=== PATIENT | male | born 1980 | race Caucasian/White ===

== ENCOUNTER 2024-05-25 11:42 | Outpatient (AMB) | payer MEDICAID, SELFPAY ==
--- NOTE | 2024-05-25 11:46 | MHC.OFFVIS ---
Vital Signs 05/25/24 11:51 Height 5 ft 11 in Weight 315 lb 8 oz BMI 44.0 BP 183/93 H Blood Pressure Location Lt brachial Position Sitting Pulse 77 Pulse Source Pulse Oximeter Pulse Oximetry (%) 98 Oxygen Delivery Method Room Air Intake Visit Reasons: Chronic Pain Syndrome Intake Note: Pain today 03/08 Glue Specialty Supervisor Required: No Accompanied by: Self / Same As Patient Allergies No Known Allergies Allergy (Verified 05/25/24 11:50) Medication List - Last Reconciled 05/26/24 by JANNETH Robb acetaminophen 1,000 mg PO Q12H PRN furosemide 20 mg PO DAILY gabapentin 200 mg PO BID metformin 500 mg PO BID metoprolol tartrate 25 mg PO BID oxycodone 5 mg PO Q4-6H PRN warfarin 5 mg PO DAILY warfarin 1 mg PO DAILY HPI HPI Chronic Pain Syndrome: Details: Patient is a pleasant 44-year-old male with history PAF, alcohol abuse, OCD, and 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 Patient is followed [place]. Braxton [facility] [place] with upcoming repeat ultrasound of BLE next month. Patient reports personal history of 17 blood clots in his legs. Patient reports his father at the age 42 due to DVTs and PE. Patient takes oxycodone and gabapentin for chronic abdominal and bilateral leg pain. He reports current opioid regimen provides him inconsistent [id number] analgesia for allows him to be less symptomatic and more functional. Pain is most severe during evenings and is constant which he rates at 7/10 and 10/10 at evenings when its worst and 6/10 when it is least severe. Pain affects his daily activities and functioning, mobility, walking capacity, sleep, and social interactions. Patient is interested in alternative interventional treatments in addition to his current medical management. His goal is to control his pain so he is able to lose weight through increase daily physical activity and exercise. Patient is also interested in weight management referral. He completed physical therapy 2 years ago while hospitalized in [facility] and more recently in December after vascular surgery. Patient reports he is happy not to be in wheelchair as he was previously but notes his mobility is limited to work hours only due to significant pain in his BLE. Denies any fever or chills, chest pain, shortness of breath, dizziness, groin pain, back pain, weakness, bladder or bowel dysfunction or saddle anesthesia. Patient graduated from [employer] from recovery from alcohol. 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 Patient denies past or present use of illicit substances, including marijuana. He quit smoking in September 2023 and switched to vaping. Location: Bilateral legs and feet Duration: Chronic pain for 3 years Characteristics of symptom or complaint: Throbbing, numbness, tingling, spasming, stabbing, sharp, shooting, cramps Aggravating or associated factors: Walking, weight bearing, climbing stairs, cold weather Relieving factors: Oxycodone, gabapentin, rest, laying down,elevation Treatment: [place] [facility] [place], lymphedema compression therapy [facility] Medical History (Updated 05/26/24 @ 08:33 by JANNETH Robb) History of DVT of lower extremity History of alcohol abuse Post-thrombotic syndrome PAF (paroxysmal atrial fibrillation) OCD (obsessive compulsive disorder) Prediabetes Hypertension Mixed hyperlipidemia Chronic pain syndrome Surgical History (Updated 05/26/24 @ 08:33 by JANNETH Robb) History of thrombectomy History of vascular surgery (~12/2023) Social History Alcohol intake: former Patient Tobacco Use Status: Former Tobacco user Tobacco use type: Cigarette e-Cigarette/Vaping Use: Currently Using Review of Systems Const All systems reviewed & are unremarkable except as noted in HPI and below Physical Exam Vital Signs: Last Vital Signs Pulse 77 05/25/24 11:51 BP 183/93 H 05/25/24 11:51 Pulse Ox 98 05/25/24 11:51 Oxygen Delivery Method Room Air 05/25/24 11:51 BMI result Body Mass Index 44.0 General: Appears afebrile. Alert and oriented. Mood and affect appropriate. Follows and participates in conversation appropriately. Respiratory effort is unlabored. No cough. Able to transition from sit to stand unassisted. Ambulates with bilaterally normal heel strike and toe off. Const General: cooperative, healthy appearing, no acute distress, alert and awake Nutritional Appearance: obese morbidly obese Orientation/consciousness: patient oriented x3 Skin General skin exam: no rashes or lesions noted Wounds: no wounds Neuro General: patient oriented x3 Extrem Other: There is a decreased sensation over the soles of the feet and toes. Reports numbness, burning, tingling in both legs and feet, worse at night time. No breaks in the skin. BLE nonpitting edema. No soft tissue swelling or warmth. +2 pedal pulses bilaterally. Poor foot care. General: Yes capillary refill normal and Yes no calf tenderness Assessment & Plan Assessment & Plan (1) Post-thrombotic syndrome: Code(s): I87.009 - Postthrombotic syndrome without complications of unspecified extremity Category: Medical (2) Peripheral neuropathy: Code(s): G62.9 - Polyneuropathy, unspecified Category: Medical (3) History of alcohol abuse: Code(s): F10.11 - Alcohol abuse, in remission Category: Medical (4) Post-thrombotic syndrome: Code(s): I87.009 - Postthrombotic syndrome without complications of unspecified extremity Category: Medical (5) Peripheral neuropathy: Code(s): G62.9 - Polyneuropathy, unspecified Category: Medical (6) Chronic pain syndrome: Code(s): G89.4 - Chronic pain syndrome Category: Medical (7) Morbid obesity with BMI of 40.0-44.9, adult: Code(s): E66.01 - Morbid (severe) obesity due to excess calories; Z68.41 - Body mass index [BMI] 40.0-44.9, adult Category: Medical Plan EMG and NVC studies to evaluate chronic BLE pain, consistent with peripheral neuropathy, history of alcohol abuse, and post thrombotic syndrome due to history of multiple BLE DVTs with prior major vascular surgeries. Discussed risks and benefits of different treatment options including topical 8% capsaicin application, Sprint PNS trial and spinal cord stimulation. Informational pamphlets provided to patient. Medical weight management referral for morbid obesity. Patient encouraged daily physical activity as tolerated, adequate hydration, well-balanced diet, avoid carbohydrates, and sodas. Patient is currently on medical pain management through his PCP including oxycodone 5 mg Q4-6H prn gabapentin. He reports short acting opioids are providing him mild and temporary analgesia for 2-3 hours after taking medication but allows him to be less symptomatic and more functional. Patient may benefit from adding a long-acting opioid such as Belbuca or Butrans patch to manage moderate-severe and persistent pain that requires an extended treatment period and continue oxycodone for breakthrough pain. All questions and concerns have been answered and patient agreed with the treatment plan. Follow-up for EMG/NVC results and sooner as needed. Orders: Orders NE electromyogram (EMG) 05/25/24 F10.11 - Alcohol abuse, in remission, G62.9 - Polyneuropathy, unspecified, I87.009 - Postthrombotic syndrome without complications of unspecified extremity NE nerve conduction velocity 05/25/24 F10.11 - Alcohol abuse, in remission, G62.9 - Polyneuropathy, unspecified, I87.009 - Postthrombotic syndrome without complications of unspecified extremity Referrals Medical Weight Management Referral E66.01 - Morbid (severe) obesity due to excess calories, G89.4 - Chronic pain syndrome, Z68.41 - Body mass index [BMI] 40.0-44.9, adult Coding Level of Care Code New Pt Level 4 (63315) Complex EM visit Add On G2211 Diagnoses Post-thrombotic syndrome I87.009 Peripheral neuropathy G62.9 History of alcohol abuse F10.11 Chronic pain syndrome G89.4 Morbid obesity with BMI of 40.0-44.9, adult E66.01; Z68.41
[2024-05-25 11:51] VITALS: BP 183/93; PULSE 77; O2SAT 98; BMI 44.0
== END 2024-05-25 12:37 | disposition home or self-care (01) ==
PROVIDERS: PCP Nurse Practitioner; Visit Provider Nurse Practitioner Family
DX: I87.009 Postthrombotic syndrome without complications of unspecified extremity (principal); G62.9 Polyneuropathy, unspecified; F10.11 Alcohol abuse, in remission; G89.4 Chronic pain syndrome; E66.01 Morbid (severe) obesity due to excess calories; Z68.41 Body mass index [BMI] 40.0-44.9, adult
CPT/HCPCS: 99204

== ENCOUNTER → 2024-05-25 11:42 | Outpatient (BNVA) | payer MEDICAID, SELFPAY | PROVIDERS: PCP Nurse Practitioner; Visit Provider Nurse Practitioner Family | DX: G89.4 Chronic pain syndrome (principal); I87.009 Postthrombotic syndrome without complications of unspecified extremity; G62.9 Polyneuropathy, unspecified; E66.01 Morbid (severe) obesity due to excess calories; Z68.41 Body mass index [BMI] 40.0-44.9, adult | CPT/HCPCS: 99212 ==

== ENCOUNTER 2024-06-16 09:29 | Outpatient (REF) | payer MEDICAID, SELFPAY ==
--- NOTE | 2024-06-16 09:33 | EMG_ITS ---
Chief complaint: Bilateral leg numbness and weakness, right worse than left Denies back pain. History of alcohol drinking in the past, not anymore. History of DVTs and post thrombolytic syndrome. On Coumadin with latest INR 2.9. Recently removed IVC filter and stents placed. Significant leg edema. Reason for referral: Evaluate for neuropathy Referred by: Ting Dan NP Procedure done: Bilateral lower extremity NCS/EMG Precautions and/or limitations: Limited needle EMG, done on right side only, due to risk of bleeding/bruising while on Coumadin. History of DVTs. Significant leg edema, necessitating increased stimulation intensity to get responses. The limb temperature was monitored continuously and remained between 32-36 degrees C during the performance of the NCS. Nerve Conduction Studies Anti Sensory Summary Table ?Stim Site NR Onset (ms) Norm Onset (ms) Peak (ms) Norm Peak (ms) O-P Amp (?V) Norm O-P Amp Site1 Site2 Delta-0 (ms) Dist (cm) Feng (m/s) Norm Feng (m/s) Left Sural Anti Sensory (Lat Mall) Calf ? 2.3 3.1 <4.0 10.3 >5.0 Calf Lat Mall 2.3 14.0 61 Right Sural Anti Sensory (Lat Mall) Calf ? 2.6 3.3 <4.0 8.3 >5.0 Calf Lat Mall 2.6 14.0 54 Motor Summary Table ?Stim Site NR Onset (ms) Norm Onset (ms) O-P Amp (mV) Norm O-P Amp iAmp (mV) Amp (1st) (%) Site1 Site2 Delta-0 (ms) Dist (cm) Feng (m/s) Norm Feng (m/s) Right Peroneal Motor (Ext Dig Brev) Ankle ? 4.6 <4.0 1.9 >2.5 2.1 100.0 Ankle Ext Dig Brev 4.6 0.0 B Fib ? 10.8 2.5 2.5 131.6 B Fib Ankle 6.2 33.5 54 >40 Poplt ? 11.4 2.7 2.6 142.1 Poplt B Fib 0.6 6.0 100 >40 Left Tibial Motor (Abd Mehta Brev) Ankle ? 3.3 <5 6.8 >2.5 9.6 100.0 Ankle Abd Mehta Brev 3.3 0.0 Knee ? 8.8 3.6 3.9 52.9 Knee Ankle 5.5 40.0 73 >40 Right Tibial Motor (Abd Mehta Brev) Ankle ? 3.1 <5 8.0 >2.5 10.0 100.0 Ankle Abd Mehta Brev 3.1 0.0 Knee ? 12.0 3.6 3.6 45.0 Knee Ankle 8.9 41.0 46 >40 EMG ?Side Muscle Nerve Root Ins Act Fibs Psw Amp Dur Poly Recrt Int Pat Comment Right AbdHallucis MedPlantar S1-2 Incr 1+ 1+ Nml Nml 0 Nml Complete Right AntTibialis Dp Br Peron L4-5 Incr 1+ 1+ Nml Nml 0 Nml Complete Right MedGastroc Tibial S1-2 Incr 1+ 1+ Nml Nml 0 Nml Complete Right VastusMed Femoral L2-4 Nml Nml Nml Nml Nml 0 Nml Complete Right Peroneus Long Sup Br Peron L5-S1 Nml Nml Nml Nml Nml 0 Nml Complete FINDINGS: Right peroneal nerve showed increased distal latencies, small amplitudes and normal conduction velocity. All other nerves tested were within normal. Concentric needle EMG was performed in selected muscles of the right lower extremity. Study revealed signs of electric abnormalities as shown in the table above. Right AH, tibialis anterior and medial gastrocnemius showed increased insertional activity, PSWs and fibrillations. Limited needle EMG as mentioned above. IMPRESSION: 1. This is an abnormal although limited study. 2. There is electrodiagnostic findings suggestive of right L5-S1 radiculopathy. 3. There is no electrodiagnostic evidence for tibial neuropathy or peripheral neuropathy. CLINICAL COMMENT: Interpret study results with caution due to limitations mentioned above. Thank you for your kind referral. Blank Martínez MD, JUDY Board Certified, [place] [employer] and Rehabilitation (ABPMR) Board Certified, [place] Board of Electrodiagnostic Medicine (ABEM) CODIN [id number] [facility]
== END 2024-06-16 09:30 | disposition home or self-care (01) ==
LOC: HO.NEURO 09:29
PROVIDERS: Visit Provider Nurse Practitioner Family
DX: G62.9 Polyneuropathy, unspecified (principal); F10.11 Alcohol abuse, in remission; I87.009 Postthrombotic syndrome without complications of unspecified extremity; R20.0 Anesthesia of skin
CPT/HCPCS: 95886; 95909

== ENCOUNTER → 2024-06-16 09:33 | Outpatient (BNV) | payer MEDICAID, SELFPAY | PROVIDERS: Visit Provider Physical Medicine & Rehabilitation | DX: M54.16 Radiculopathy, lumbar region (principal) | CPT/HCPCS: 95886; 95909 ==

== ENCOUNTER 2024-10-27 12:57 | Outpatient (AMB) | payer OTHER, SELFPAY ==
[2024-10-27 13:30] LABS: Prothrombin Time Whole Bld POC 35.5 sec (11.1-13.5)
--- NOTE | 2024-10-27 13:45 | MHC.OFFVISCO ---
Intake Intake Visit Reasons: Anticoagulation Contract Post Office Clerk Required: No Allergies No Known Allergies Allergy (Verified 05/25/24 11:50) Medication List - Last Reconciled 10/27/24 by Sarah Larkin RN acetaminophen 1,000 mg PO Q12H PRN furosemide 20 mg PO DAILY gabapentin 200 mg PO BID metformin 500 mg PO BID metoprolol tartrate 25 mg PO BID oxycodone 5 mg PO Q6H PRN warfarin 5 mg See Protocol PO DAILY Nursing Note Pt to [facility] for initial visit. Pt states he has has close to 20 clots in the past 15 years. In December of 2023 he had 3 major clots in bilat iliac veins and Right femoral vein. He had [address] at that time. He has been on Xarelto and Eliquis previously but since the last episode of clotting, he transitioned to Warfarin. Pt states he has been on warfarin for almost a year. History taken. Anti-coag education done with good understanding by pt. INR today: 3.0 in therapeutic range of 2.5-3.5. Pt states his last INR 3-4 weeks ago was 1.7 Medications and supplements reviewed Denies any signs and symptoms of bleeding or bruising or clotting. Bleeding, bruising, clotting discussed Nutritional education/guidance given Dose: will keep pt on the dose he has been on which is 7.5mg daily F/U INR: 1 week Patient verbalizes understanding of instructions with read back given Anti-Coag Initial Assessment Social Hx Patient Tobacco Use Status: Former Tobacco user (quit 1 year ago, uses vape 5% nicotine) Tobacco use type: Cigarette Smoking packs per day: 1 alcohol intake: former Alcohol intake frequency: does not drink Housing: Apartment current occupational exposures/hazards: No Fall risk assessment: No Falls in past year Cardiovascular Hx: HTN, Arrhythmias (afib) and Varicose Veins Lung Disease HX: DVT/PE Endocrine Hx: Diabetes (borderline on oral agent) Cancer HX: No Psych. Illness/Depression: No Surgeries: IVC Filter (failed and removed) 3 Stents bilat Iliac veins and Right Femoral vein Other: CVI Chronic Venous Insufficiency Anti-Coag. Education Record Teaching Recipient: Patient What is the easiest way to learn: Reading, Listening, Picture, Demonstration and Education Packet Contract Post Office Clerk Required: No Readiness To Learn: Excellent Teaching Methods: Discussion, Handout, Protocol and Teach Back Response to Teaching: Verbalize Understanding Re-Education needs: Reinforce Content Education Intervention/Brief Description of Teaching 1. Able to state reason for taking Warfarin: Yes 2. Able to state Pain Management techniques: Yes 3. Able to state action of Warfarin.: Yes Able to state current dose, pill color, how and when Warfarin to be taken: Yes Able to identify signs of bleeding &/or clotting: Yes 4. Able to identify need to keep diet consistent in regard to vitamin K intake: Yes Able to state restriction on alcohol: Yes 5. Able to state need for compliance with PT/INR testing: Yes Describes rationale for carrying ID and wearing Medic Alert bracelet: Yes Patient instructed to monitor for excess bruising or signs/symptoms of clotting or bleeding: Yes 6. Able to state that there are drugs that interact with Warfin: Yes 7. Able to state the need to seek medical attention when illness/injury occur.: Yes Describes the need to avoid activities with high risk of injury: Yes 8. Able to state duration of treatment: Yes 9. Demonstrates understanding of notifying all providers of pending dental surgical, or other invasive procedures: Yes 10. Able to state Home Care instructions Questionnaires HAS-BLED Does the patient had uncontrolled Hypertension?: No Does the patient have renal disease?: No Does the patient have liver disease?: No Does the patient have a history of stroke?: No Has the patient had major bleeding or predisposition to bleeding?: No Does the patient have labile INRs?: Yes Is the patient over 65 years of age?: No Is the patient on medications that gives them a predisposition to bleeding?: Yes Does the patient use alcohol?: No HAS-BLED Score: 2 CHADSVASC Age: <65 Gender: Male Does the patient have a history of CHF?: No Does the patient have a history of Hypertension?: Yes Does the patient have a history of Stroke/TIA/Thromboembolism?: No Does the patient have a history of Vascular Disease (prior HI, PAD or aortic plaque)?: No Does the patient have a history of Diabetes?: Yes CHADS VACS Score: 2 Pee Prediction Score Rsk VTE Active Cancer: No Previous VTE, excluding superficial vein thrombosis: Yes Reduced mobility: No Already known Thrombophilic Condition: Yes With-in last month Trauma and/or Surgery: No Elderly 70 year or older: No Heart and/or Respiratory Failure: No Acute Myocardial infarction and/or Ischemic Stroke: No Acute Infection and/or Rheumatologic Disorder: No Obesity (BMI 30 or greater): Yes Ongoing Hormonal Treatment: No Score: 7 Pee Score less than 4; Low Risk of VTE Pee Score 4 or greater; High Risk of VTE Coding Level of Care Code New Patient Level 2 Diagnoses Current use of anticoagulant therapy Z79.01 Assessment & Plan Assessment & Plan (1) Current use of anticoagulant therapy: Code(s): 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
--- OUTSIDE RECORDS SUMMARY | 2024-10-27 15:01 | XMS_ITS ---
Author Organization [facility] Address [address] [place] [phone] Care Team Providers Care Horse Racing Manager Name Role Phone Karin Randall Primary Care Provider REASON FOR VISIT refills/Coumadin clinic referral Medications Medication SIG (Take, Route, Frequency, Duration) Notes Start Date End Date Status oxyCODONE 5 mg 1 tab(s) orally every 6 hours for 30 days As needed Partial Fill upon Patient Request 10/17/2024 Active Jantoven 7.5 mg 1 tab(s) orally once a day 10/03/2024 Active Problems Problem Type SNOMED Code ICD Code Onset Dates Problem Status W/U Status Risk Notes Problem History of pulmonary embolus (471713095) Personal history of pulmonary embolism (Z86.711) Active confirmed Encounters Encounter Location Date Provider Diagnosis [address] [phone] 10/17/2024 Karin Randall Chronic pain syndrome G89.4 ; Personal history of pulmonary embolism Z86.711 ; Personal history of other venous thrombosis and embolism Z86.718 ; Paroxysmal atrial fibrillation I48.0 ; detention (current) use of anticoagulants Z79.01 and 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 I87.093 Assessments Encounter Date Diagnosis (ICD Code) Assessment Notes Treat ment Notes Treatment Clinical Notes 10/17/2024 Chronic pain syndrom e (ICD-10 - G89.4) 10/17/2024 Personal history of pulmonary embolism (ICD-10 - Z86.711) Advised to have blood draw in our clinic or to [facility] while waiting for [facility] acceptance. 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 Offered lab draw today while we are at [facility] he declined Progress Notes * Epifanio WALSH EDOB: [birth year] (44 yo M)Acc No.[id number]:10/17/2024 Patient:?Epifanio WALSH :1980???Age:44 Y???Sex:Male Address:[address] [place] [phone] * Refills? Refill oxyCODONE tablet, 5 mg, orally, 120 Tablet, 1 tab(s), every 6 hours, 30 days, Refills=0 Continue Jantoven tablet, 7.5 mg, orally, 1 tab(s), once a day Subjective: * Chief Complaints: * ???refills/Coumadin clinic r eferral * Medical History:? * Surgical History:? * Hospitalization/Major Diagno stic Procedure:? * Medications:? Objective: * Vitals:? * Physical Examination:? 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 Plan: * Treatment: 2.?Personal history of pulmo nary embolism? Notes: Advised to have blood draw in our clinic or to [facility] while waiting for [facility] acceptance. Offered lab draw today while we are at [facility] he declined? Referral To: ?Reason:refer to Coumadin clinic for INR monitoring and Coumadin dosing; Goal INR: 2.5-3.5 Present insurance no longer cover for home INR draws 3.?Personal history of other venous thrombosis and embolism? Referral To: ?Reason:refer to Coumadin clinic for INR monitoring and Coumadin dosing; Goal INR: 2.5-3.5 Present insurance no longer cover for home INR draws 4.?Paroxysmal atrial fibrill ation? Referral To: ?Reason:refer to Coumadin clinic for INR monitoring and Coumadin dosing; Goal INR: 2.5-3.5 Present insurance no longer cover for home INR draws 5.?detention (current) use o f anticoagulants? Referral To: ?Reason:refer to Coumadin clinic for INR monitoring and Coumadin dosing; Goal INR: 2.5-3.5 Present insurance no longer cover for home INR draws 6.?Postthrombotic syndrome w ith other complications of bilateral lower extremity? Continue Jantoven tablet, 7.5 mg, 1 tab(s), orally, once a day.? Referral To: ?Reason:refer to Coumadin clinic for INR monitoring and Coumadin dosing; Goal INR: 2.5-3.5 Present insurance no longer cover for home INR draws * Procedure Codes:? * true * Date:? Generated for [employer] wayne/Rosalia/eTransmitting on:?10/27/2024 03:01 PM EST
--- OUTSIDE RECORDS SUMMARY | 2024-10-27 15:01 | XMS_ITS ---
Author Organization [facility] Address [address] [place] [phone] Care Team Providers Care Package Delivery Room Service Runner Name Role Phone Karin Randall Primary Care Provider [phone] Anurag Martinez Unavailable [phone] REASON FOR VISIT oxy Medications Medication SIG (Take, Route, Frequency, Duration) Notes Start Date End Date Status oxyCODONE 5 mg 1 tab(s) orally every 8 hours for 14 days As needed Partial Fill upon Patient Request 10/25/2024 Active Encounters Encounter Location Date Provider Diagnosis [address] [phone] 10/25/2024 Anurag Martinez Chronic pain syndrome G89.4 Assessments Encounter Date Diagnosis (ICD Code) Assessment Notes Treatment Notes Treatment Clinical Notes 10/25/2024 Chronic pain syndrome (ICD-10 - G89.4) Plan Of Treatment Medication Medication Name Sig Start Date Stop Date Notes oxyCODONE 5 mg 1 tab(s) orally ever y 8 hours for 14 days 10/25/2024 Partial Fill upon Patient Request Progress Notes * Epifanio WALSH EDOB: [birth year] (44 yo M)Acc No.[id number]:10/25/2024 Patient:?Epifanio WALSH :1980???Age:44 Y???Sex:Male Address:[address] [place] [id number] * Refills? Refill oxyCODONE tablet, 5 mg, orally, 42 Tablet, 1 tab(s), every 8 hours, 14 days, Refills=0 * true * Date:? Generated for Printi ng/Faxing/Caitlinitting on:?10/27/2024 03:01 PM EST
--- OUTSIDE RECORDS SUMMARY | 2024-10-27 15:01 | XMS_ITS ---
Author Organization [facility] Address [address] [place] [phone] Care Team Providers Care Supervisor Electric Name Role Phone Karin Randall Primary Care Provider Reason For Referral Reason [facility], Anticoagulation Service, [address] [place] [id number] P: [phone] F: [phone] On Coumadin for history of PE, DVT, Paroxysmal Afib and Unstable chest pain. 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) Referral Organization [facility] Referring Provider First Name Karin Referring Provider Last Name Tonia Referring Provider Speciality Nurse Prac titioner General Notes Felicita Ramírez 05/2025 11:16:59 AM > Called anticoagulation clinic awaiting a call back for location and fax number for referralDarrell Paris 10/10/2024 08:42:07 AM > [facility] does not accept outside patients, [place] [facility] Priority Routine REASON FOR VISIT change in insurance Encounters Encounter Location Date Provider Diagnosis [address] [id number] 10/06/2024 Karin Randall Paroxysmal atrial fibrillation I48.0 ; Personal history of other venous thrombosis and embolism Z86.718 and 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 I87.093 Assessments Encounter Date Diagnosis (ICD Code) Assessment Notes Treat ment Notes Treatment Clinical Notes 10/06/2024 Paroxysmal atrial fibrillation (ICD-10 - I48.0) 10/06/2024 Personal history of other venous thrombosis and embolism (ICD-10 - Z86.718) BLE DVT [address] 10/06/2024 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 Goal INR is 2.5 - 3.5 Progress Notes * Epifanio WALSH EDOB: [birth year] (44 yo M)Acc No.[id number]:10/06/2024 Patient:?Epifanio WALSH :1980???Age:44 Y???Sex:Male Address:[address] [place] [phone] Subjective: * Chief Complaints: * ???Change in insurance * Medical History:? * Surgical History:? * Hospitalization/Major Diagno stic Procedure:? * Medications:? Objective: * Vitals:? * Physical Examination:? 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 Plan: * Treatment: 2.?Personal history of other venous thrombosis and embolism? Referral To: ?Reason: [facility], Anticoagulation Service, [address] [place] [id number] P: [phone] F: [phone] On Coumadin for history of PE, DVT, Paroxysmal Afib and Unstable chest pain. Goal INR is 2.5 - 3.5 3.?Postthrombotic syndrome w ith other complications of bilateral lower extremity? Referral To: ?Reason: [facility], Anticoagulation Service, [address] [place], [place] [id number] P: [phone] F: [phone] On Coumadin for history of PE, DVT, Paroxysmal Afib and Unstable chest pain. Goal INR is 2.5 - 3.5 * Procedure Codes:? * true * Date:? Generated for Kodak wayne/Rosalia/eTransmitting on:?10/27/2024 03:00 PM EST Consultation Request Notes Referral Date Referring Provider Referred Provider Not es 10/06/2024 Karin Randall , [facility], Anticoagulation Service, [address] [place] [id number] P: [phone] F: [phone] On Coumadin for history of PE, DVT, Paroxysmal Afib and Unstable chest pain. Goal INR is 2.5 - 3.5
== END 2024-10-27 14:38 | disposition home or self-care (01) ==
LOC: HO.ACS 12:57
PROVIDERS: PCP Nurse Practitioner; Visit Provider Internal Medicine
DX: Z79.01 Long term (current) use of anticoagulants (principal)

== ENCOUNTER → 2024-10-27 12:57 | Outpatient (BNVA) | payer OTHER, SELFPAY | PROVIDERS: PCP Nurse Practitioner; Visit Provider Internal Medicine | DX: I48.0 Paroxysmal atrial fibrillation (principal); I87.093 Postthrombotic syndrome with other complications of bilateral lower extremity; Z86.718 Personal history of other venous thrombosis and embolism; Z79.01 Long term (current) use of anticoagulants; Z51.81 Encounter for therapeutic drug level monitoring | CPT/HCPCS: 85610; 99202 ==

== ENCOUNTER 2024-11-03 15:01 | Outpatient (AMB) | payer OTHER, SELFPAY ==
[2024-11-03 15:09] LABS: Prothrombin Time Whole Bld POC 17.2 sec (11.1-13.5); ~PT, ~INR - Anti Coag Clinic 1.4 (0.9-1.1)
--- NOTE | 2024-11-03 15:26 | MHC.OFFVISCO ---
Intake Intake Visit Reasons: Anticoagulation Allergies No Known Allergies Allergy (Verified 11/03/24 15:02) Medication List - Last Reconciled 11/03/24 by Sarah Merino, RN acetaminophen 1,000 mg PO Q12H PRN furosemide 20 mg PO DAILY gabapentin 200 mg PO BID metformin 500 mg PO BID metoprolol tartrate 25 mg PO BID oxycodone 5 mg PO Q6H PRN rosuvastatin 5 mg PO DAILY warfarin 5 mg See Protocol PO DAILY Nursing Note Arrival: Patient arrives to [facility] amb feeling well. Status: Denies changes in health, diet, medications or supplements. Denies symptoms of bleeding, bruising or clotting. INR: 1.4 critical low, denies any missed dose, denies any changes in diet Therapeutic Range: 2.5-3.5 Dose: plan to increase dose to 10mg today and tomorrow, resume 7.5mg daily on Wednesday Call to PCP to report critical INR, dosing plan, no missed doses or dietary concerns and question if Lovenox is indicated- Spoke with Felicita LY await call back Nutritional Guidance: Review food list weekly, especially during the holidays, seasonal changes and celebrations. Continue to eat a consistent and balanced diet to keep INR in therapeutic range. during review of greens found that pt who usually drinks 12 diet cokes a day has stopped that and changed to Green tea (will decrease INR) sts he has about a half gallon a day Return call back from PCP Pedro Randall CRANE OPERATOR, warfarin 10mg x 2 days and lovenox will be ordered, pt concerns over delivery, PCP to call back Follow-up Appointment: Monday 11/06 sts he will come in on his lunch TC from PCP, lovenox has been ordered x 5 doses, 1 tonight, am and pm tomorrow and Wednesday. PCP sts it will be delivered today- pt aware of how to give injections, I hate it but did it for 5 months pt expresses much concern over cost of lovenox and co pays. Reviewed with pt importance of lovenox to protect from clotting and reviewed S/S of clotting, stroke and need for ED if any symptoms. Pt sts not sure if he is going to use it, has already called from office to pharmacy to have them call him with cost and co pay. reviewed again importance of protecting from clotting now with Lovenox and importance of taking warfarin at same time of day, every day as pt indicates I am all over the place with it Patient verbalizes understanding of instructions given regarding dosing, diet and next follow-up appointment with read back. Anti-Coag Initial Assessment Social Hx Patient Tobacco Use Status: Former Tobacco user (quit 1 year ago, uses vape 5% nicotine) Tobacco use type: Cigarette Smoking packs per day: 1 alcohol intake: former Alcohol intake frequency: does not drink Cardiovascular Hx: HTN, Arrhythmias (afib) and Varicose Veins Lung Disease HX: DVT/PE Endocrine Hx: Diabetes (borderline on oral agent) Cancer HX: No Psych. Illness/Depression: No Coding Level of Care Code Est Patient Level 2 Diagnoses Current use of anticoagulant therapy Z79.01 Time Spent (min) 30 Assessment & Plan Assessment & Plan (1) Current use of anticoagulant therapy: Code(s): Z79.01 - [facility] (current) use of anticoagulants Category: Medical
--- OUTSIDE RECORDS SUMMARY | 2024-11-03 16:42 | XMS_ITS ---
Author Organization [facility] Address [address] [place] [phone] Care Team Providers Care Business Services Director Name Role Phone Karin Randall Primary Care Provider [phone] REASON FOR VISIT INR issue Encounters Encounter Location Date Provider Diagnosis [address] [phone] 11/03/2024 Karin Randall Plan Of Treatment No Information Progress Notes * Epifanio WALSH EDOB: [birth year] (44 yo M)Acc No.[id number]:11/03/2024 Patient:?Epifanio WALSH :1980???Age:44 Y???Sex:Male Address:[address] [place] [phone] * true * Date:? Generated for Daroni rosana/Rosalia/eTransmitting on:?11/03/2024 04:42 PM EST
--- OUTSIDE RECORDS SUMMARY | 2024-11-03 16:43 | XMS_ITS ---
Author Organization [facility] Address [address] [place] [phone] Care Team Providers Care Filter Tank Tender Helper Head Name Role Phone Karin Randall Primary Care Provider [phone] Anurag Martinez Unavailable [phone] REASON FOR VISIT oxy Medications Medication SIG (Take, Route, Frequency, Duration) Notes Start Date End Date Status oxyCODONE 5 mg 1 tab(s) orally every 8 hours for 14 days As needed Partial Fill upon Patient Request 10/25/2024 Active Encounters Encounter Location Date Provider Diagnosis [address] [id number] 10/25/2024 Anurag Martinez Chronic pain syndrome G89.4 [...] Epifanio WALSH EDOB: [birth year] (44 yo M)Acc No.[id number]:10/25/2024 Patient:?Epifanio WALSH :1980???Age:44 Y???Sex:Male Address:[address] [place] [phone] * Refills? Refill oxyCODONE tablet, 5 mg, orally, 42 Tablet, 1 tab(s), every 8 hours, 14 days, Refills=0 * true * Date:? Generated for Printi ng/Faxing/Caitlinitting on:?11/03/2024 04:43 PM EST
--- OUTSIDE RECORDS SUMMARY | 2024-11-03 16:43 | XMS_ITS ---
Author Organization [facility] Address [address] [place] [phone] Care Team Providers Care Paver Layer Name Role Phone Karin Randall Primary Care Provider REASON FOR VISIT COumadin Medications Medication SIG (Take, Route, Fr equency, Duration) Notes Start Date End Date Status Enoxaparin Sodium 150 mg/mL as directed subcutaneously every 12 hours for 3 days 11/03/2024 Active Encounters Encounter Location Date Provider Diagnosis [address] [id number] 11/03/2024 Karin Randall Plan Of Treatment Medication Medication Name Sig Start Date Stop Date Notes Enoxaparin Sodium 150 mg/mL as directed subcutaneously every 12 hours for 3 days 11/03/2024 Progress Notes * Epifanio WALSH EDOB: [birth year] (44 yo M)Acc No.[id number]:11/03/2024 Patient:?Epifanio WALSH :1980???Age:44 Y???Sex:Male Address:[address] [place] [phone] * Refills? Start Enoxaparin Sodium solution, 150 mg/mL, subcutaneously, 5, as directed, every 12 hours, 3 days, Refills=0 * true * Date:? Generated for Kodak wayne/Rosalia/eTransmitting on:?11/03/2024 04:42 PM EST
== END 2024-11-03 16:04 | disposition home or self-care (01) ==
LOC: HO.ACS 15:01
PROVIDERS: PCP Nurse Practitioner; Visit Provider Internal Medicine
DX: Z79.01 Long term (current) use of anticoagulants (principal)

== ENCOUNTER → 2024-11-03 15:01 | Outpatient (BNVA) | payer OTHER, SELFPAY | PROVIDERS: PCP Nurse Practitioner; Visit Provider Internal Medicine | DX: I48.0 Paroxysmal atrial fibrillation (principal); I87.093 Postthrombotic syndrome with other complications of bilateral lower extremity; Z86.718 Personal history of other venous thrombosis and embolism; Z79.01 Long term (current) use of anticoagulants; Z51.81 Encounter for therapeutic drug level monitoring | CPT/HCPCS: 85610; 99212 ==

== ENCOUNTER 2024-11-06 11:16 | Outpatient (AMB) | payer OTHER, SELFPAY ==
[2024-11-06 11:25] LABS: Prothrombin Time Whole Bld POC 48.2 sec (11.1-13.5)
--- NOTE | 2024-11-06 11:39 | MHC.OFFVISCO ---
Intake Intake Visit Reasons: Anticoagulation Allergies No Known Allergies Allergy (Verified 11/06/24 11:21) Medication List - Last Reconciled 11/06/24 by Sarah Larkin RN acetaminophen 1,000 mg PO Q12H PRN furosemide 20 mg PO DAILY gabapentin 200 mg PO BID metformin 500 mg PO BID metoprolol tartrate 25 mg PO BID oxycodone 5 mg PO Q6H PRN rosuvastatin 5 mg PO DAILY warfarin 5 mg See Protocol PO DAILY Nursing Note INR: 4.0?out of therapeutic range of 2.5-3.5 Medications and supplements reviewed Patient status: feels well Medications or supplements: no changes Pt took only 2 doses of lovenox on Wednesday. States he hates taking it and because it makes him nauseated. Diet: usual diet for pt Denies any signs and symptoms of bleeding or clotting or unusual bruising Bleeding, bruising, clotting discussed Nutritional guidance given: to have a serving of greens today Dose: back to usual dose of 7.5mg daily F/U INR Date : 11/17/24?? Patient verbalizing understanding of instructions given. Anti-Coag Initial Assessment Social Hx Patient Tobacco Use Status: Former Tobacco user (quit 1 year ago, uses vape 5% nicotine) Tobacco use type: Cigarette Smoking packs per day: 1 alcohol intake: former Alcohol intake frequency: does not drink Cardiovascular Hx: HTN, Arrhythmias (afib) and Varicose Veins Lung Disease HX: DVT/PE Endocrine Hx: Diabetes (borderline on oral agent) Cancer HX: No Psych. Illness/Depression: No Coding Level of Care Code Est Patient Level 1 Diagnoses Current use of anticoagulant therapy Z79.01 Assessment & Plan Assessment & Plan (1) Current use of anticoagulant therapy: Code(s): Z79.01 - [facility] (current) use of anticoagulants Category: Medical
--- OUTSIDE RECORDS SUMMARY | 2024-11-06 12:54 | XMS_ITS ---
Author Organization [facility] Address [address] [place] [phone] Care Team Providers Care Assembly Mechanic Name Role Phone Karin Randall Primary Care Provider REASON FOR VISIT COumadin Medications Medication SIG (Take, Route, Fr equency, Duration) Notes Start Date End Date Status Enoxaparin Sodium 150 mg/mL as directed subcutaneously every 12 hours for 3 days 11/03/2024 Active Encounters Encounter Location Date Provider Diagnosis [address] [id number] 11/03/2024 Karin Randall Plan Of Treatment Medication Medication Name Sig Start Date Stop Date Notes Enoxaparin Sodium 150 mg/mL as directed subcutaneously every 12 hours for 3 days 11/03/2024 Progress Notes * Epifanio WALSH EDOB: [birth year] (44 yo M)Acc No.[id number]:11/03/2024 Patient:?Epifanio WALSH :1980???Age:44 Y???Sex:Male Address:[address] [place] [phone] * Refills? Start Enoxaparin Sodium solution, 150 mg/mL, subcutaneously, 5, as directed, every 12 hours, 3 days, Refills=0 * true * Date:? Generated for Kodak wayne/Marianneg/eTransmitting on:?11/06/2024 12:54 PM EDT
--- OUTSIDE RECORDS SUMMARY | 2024-11-06 12:54 | XMS_ITS ---
Author Organization [facility] Address [address] [place] [phone] Care Team Providers Care Vp Strategy Name Role Phone Karin Randall Primary Care Provider REASON FOR VISIT INR issue Encounters Encounter Location Date Provider Diagnosis [address] [id number] 11/03/2024 Karin Randall Plan Of Treatment No Information Progress Notes * Epifanio WALSH EDOB: [birth year] (44 yo M)Acc No.[id number]:11/03/2024 Patient:?Epifanio WALSH :1980???Age:44 Y???Sex:Male Address:[address] [place] [phone] * true * Date:? Generated for Daroni rosana/Rosalia/eTransmitting on:?11/06/2024 12:53 PM EDT
--- OUTSIDE RECORDS SUMMARY | 2024-11-06 12:54 | XMS_ITS ---
Author Organization [facility] Address [address] [place] [phone] Care Team Providers Care Disulfurizer Tender Name Role Phone Karin Randall Primary Care Provider [phone] Anurag Martinez Unavailable [phone] REASON FOR VISIT oxy Medications Medication SIG (Take, Route, Frequency, Duration) Notes Start Date End Date Status oxyCODONE 5 mg 1 tab(s) orally every 8 hours for 14 days As needed Partial Fill upon Patient Request 10/25/2024 Active Encounters Encounter Location Date Provider Diagnosis [address] [id number] 10/25/2024 Anurag Martinez Chronic pain syndrome G89.4 [...] Epifanio WALSH EDOB: [birth year] (44 yo M)Acc No.[id number]:10/25/2024 Patient:?Epifanio WALSH :1980???Age:44 Y???Sex:Male Address:[address] [place] [phone] * Refills? Refill oxyCODONE tablet, 5 mg, orally, 42 Tablet, 1 tab(s), every 8 hours, 14 days, Refills=0 * true * Date:? Generated for Printi ng/Faxing/Caitlinitting on:?11/06/2024 12:54 PM EDT
== END 2024-11-06 11:46 | disposition home or self-care (01) ==
LOC: HO.ACS 11:16
PROVIDERS: PCP Nurse Practitioner; Visit Provider Internal Medicine
DX: Z79.01 Long term (current) use of anticoagulants (principal)

== ENCOUNTER → 2024-11-06 11:16 | Outpatient (BNVA) | payer OTHER, SELFPAY | PROVIDERS: PCP Nurse Practitioner; Visit Provider Internal Medicine | DX: I48.0 Paroxysmal atrial fibrillation (principal); I87.093 Postthrombotic syndrome with other complications of bilateral lower extremity; Z86.718 Personal history of other venous thrombosis and embolism; Z79.01 Long term (current) use of anticoagulants; Z51.81 Encounter for therapeutic drug level monitoring | CPT/HCPCS: 85610; 99211 ==

== ENCOUNTER 2024-11-17 14:55 | Outpatient (AMB) | payer OTHER, SELFPAY ==
[2024-11-17 15:06] LABS: ~PT, ~INR - Anti Coag Clinic 2.2 (0.9-1.1)
--- NOTE | 2024-11-17 15:28 | MHC.OFFVISCO ---
Intake Intake Visit Reasons: Anticoagulation Allergies No Known Allergies Allergy (Verified 11/17/24 15:00) Medication List - Last Reconciled 11/17/24 by Ashley Estrada RN acetaminophen 1,000 mg PO Q12H PRN furosemide 20 mg PO DAILY gabapentin 200 mg PO BID metformin 500 mg PO BID metoprolol tartrate 25 mg PO BID oxycodone 5 mg PO QID PRN rosuvastatin 5 mg PO DAILY warfarin 5 mg See Protocol PO DAILY Nursing Note INR 2.2 out of therapeutic range 2.5-3.5 Medications and supplements reviewed- HE STATED HE MISSED A DOSE- HE WAS ENC TO CALL SHOULD THAT EVER HAPPEN - HE COULD BE ADVISED WHAT TO DO WITH DOSING AND DIET. Patient status: States he has had c/p 5/10 pain scale sometimes when he takes a deep breath and GARD[place]O walking in today, lips and nail beds pink able to speak in full sentences, b/p 164/92 HR 88 (states his b/p runs high) lungs sounds clear bilat after taking deep breaths - chest tender to touch - helped someone move over the weekend. Went to of friend who from heart attack yesterday, work is stressful but meaningful, pt advised to go to ER but he said he would rather go home and go to ER near him because they know his history and his PCP office is next door to his office. He promised if he feels worse in any way he will go get seen Medications or supplements: no changes Diet: good Denies any signs and symptoms of bleeding or clotting or unusual bruising Bleeding, bruising, clotting discussed Nutritional guidance given: advised to avoid greens x 2 days Dose: BOOSTER DOSE TODAY TO 10MG THEN RESUME 7.5MG DAILY F/U INR Date: 1 WEEK?? Patient verbalizing understanding of instructions given WITH READ BACK . Anti-Coag Initial Assessment Social Hx Patient Tobacco Use Status: Former Tobacco user (quit 1 year ago, uses vape 5% nicotine) Tobacco use type: Cigarette Smoking packs per day: 1 alcohol intake: former Alcohol intake frequency: does not drink Cardiovascular Hx: HTN, Arrhythmias (afib) and Varicose Veins Lung Disease HX: DVT/PE Endocrine Hx: Diabetes (borderline on oral agent) Cancer HX: No Psych. Illness/Depression: No Coding Level of Care Code Est Patient Level 1 Diagnoses Current use of anticoagulant therapy Z79.01 Assessment & Plan Assessment & Plan (1) Current use of anticoagulant therapy: Code(s): Z79.01 - ocean transportation intermediary (current) use of anticoagulants Category: Medical
--- OUTSIDE RECORDS SUMMARY | 2024-11-17 17:03 | XMS_ITS ---
Author Organization [facility] Address [address] [place] [phone] Care Team Providers Care Vice President Industrial Relations Name Role Phone Karin Randall Primary Care Provider REASON FOR VISIT COumadin Medications Medication SIG (Take, Route, Fr equency, Duration) Notes Start Date End Date Status Enoxaparin Sodium 150 mg/mL as directed subcutaneously every 12 hours for 3 days 11/03/2024 Active Encounters Encounter Location Date Provider Diagnosis [address] [id number] 11/03/2024 Karin Randall Plan Of Treatment Medication Medication Name Sig Start Date Stop Date Notes Enoxaparin Sodium 150 mg/mL as directed subcutaneously every 12 hours for 3 days 11/03/2024 Progress Notes * Epifanio WALSH EDOB: [birth year] (44 yo M)Acc No.[id number]:11/03/2024 Patient:?Epifanio WALSH :1980???Age:44 Y???Sex:Male Address:[address] [place] [phone] * Refills? Start Enoxaparin Sodium solution, 150 mg/mL, subcutaneously, 5, as directed, every 12 hours, 3 days, Refills=0 * true * Date:? Generated for Daroni rosana/Marianneg/eTransmitting on:?11/17/2024 05:02 PM EDT
--- OUTSIDE RECORDS SUMMARY | 2024-11-17 17:03 | XMS_ITS ---
Author Organization [facility] Address [address] [place] [phone] Care Team Providers Care Central Service Supply Distributor Name Role Phone Karin Randall Primary Care Provider REASON FOR VISIT INR issue Encounters Encounter Location Date Provider Diagnosis [address] [id number] 11/03/2024 Karin Randall Plan Of Treatment No Information Progress Notes * Epifanio WALSH EDOB: [birth year] (44 yo M)Acc No.[id number]:11/03/2024 Patient:?Epifanio WALSH :1980???Age:44 Y???Sex:Male Address:[address] [place] [phone] * true * Date:? Generated for Daroni rosana/Rosalia/eTransmitting on:?11/17/2024 05:02 PM EDT
--- OUTSIDE RECORDS SUMMARY | 2024-11-17 17:03 | XMS_ITS ---
Author Organization [facility] Address [address] [place] [phone] Care Team Providers Care Blocker And Sewer Name Role Phone Karni Randall Primary Care Provider REASON FOR VISIT Oxy refill Medications Medication SIG (Take, Route, Frequency, Duration) Notes Start Date End Date Status oxyCODONE 5 mg 1 tab(s) orally every 6 hours for 15 days As needed Partial Fill upon Patient Request 11/07/2024 Active Encounters Encounter Location Date Provider Diagnosis [address] [id number] 11/07/2024 Karin Randall Chronic pain syndrome G89.4 Assessments Encounter Date Diagnosis (ICD Code) Assessment Notes Treatment Notes Treatment Clinical Notes 11/07/2024 Chronic pain syndrome (ICD-10 - G89.4) Plan Of Treatment Medication Medication Name Sig Start Date Stop Date Notes oxyCODONE 5 mg 1 tab(s) orally ever y 6 hours for 15 days 11/07/2024 Partial Fill upon Patient Request Progress Notes * Epifanio WALSH EDOB: [birth year] (44 yo M)Acc No.[id number]:11/07/2024 Patient:?Epifanio WALSH :1980???Age:44 Y???Sex:Male Address:[address] [place] [phone] * Refills? Refill oxyCODONE tablet, 5 mg, orally, 60 Tablet, 1 tab(s), every 6 hours, 15 days, Refills=0 * true * Date:? Generated for Printi ng/Faxing/eTransmitting on:?11/17/2024 05:02 PM EDT
== END 2024-11-17 15:36 | disposition home or self-care (01) ==
LOC: HO.ACS 14:55
PROVIDERS: PCP Nurse Practitioner; Visit Provider Internal Medicine Medical Oncology
DX: Z79.01 Long term (current) use of anticoagulants (principal)

== ENCOUNTER → 2024-11-17 14:55 | Outpatient (BNVA) | payer OTHER, SELFPAY | PROVIDERS: PCP Nurse Practitioner; Visit Provider Internal Medicine Medical Oncology | DX: I48.0 Paroxysmal atrial fibrillation (principal); I87.093 Postthrombotic syndrome with other complications of bilateral lower extremity; Z86.718 Personal history of other venous thrombosis and embolism; Z79.01 Long term (current) use of anticoagulants; Z51.81 Encounter for therapeutic drug level monitoring | CPT/HCPCS: 85610; 99211 ==

== ENCOUNTER 2024-11-24 13:48 | Outpatient (AMB) | payer OTHER, SELFPAY ==
[2024-11-24 14:08] LABS: Prothrombin Time Whole Bld POC 33.9 sec (11.1-13.5); ~PT, ~INR - Anti Coag Clinic 2.8 (0.9-1.1)
--- NOTE | 2024-11-24 14:09 | MHC.OFFVISCO ---
Intake Intake Visit Reasons: Anticoagulation Allergies No Known Allergies Allergy (Verified 11/24/24 13:56) Medication List - Last Reconciled 11/24/24 by Ashley Estrada RN acetaminophen 1,000 mg PO Q12H PRN furosemide 20 mg PO DAILY gabapentin 200 mg PO BID metformin 500 mg PO BID metoprolol tartrate 25 mg PO BID oxycodone 5 mg PO QID PRN rosuvastatin 5 mg PO DAILY warfarin 5 mg See Protocol PO DAILY Nursing Note INR: 2.8 in therapeutic range Medications and supplements reviewed No changes in health, diet, medications, or supplements, Denies any signs and symptoms of bleeding or bruising or clotting. Bleeding, bruising, clotting discussed Nutritional guidance given Dose: 7.5MG DAILY F/U INR: 2 WEEKS Patient verbalizes understanding of instructions given with read back Anti-Coag Initial Assessment Social Hx Patient Tobacco Use Status: Former Tobacco user (quit 1 year ago, uses vape 5% nicotine) Tobacco use type: Cigarette Smoking packs per day: 1 alcohol intake: former Alcohol intake frequency: does not drink Cardiovascular Hx: HTN, Arrhythmias (afib) and Varicose Veins Lung Disease HX: DVT/PE Endocrine Hx: Diabetes (borderline on oral agent) Cancer HX: No Psych. 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
== END 2024-11-24 14:11 | disposition home or self-care (01) ==
LOC: HO.ACS 13:48
PROVIDERS: PCP Nurse Practitioner; Visit Provider Internal Medicine Medical Oncology
DX: Z79.01 Long term (current) use of anticoagulants (principal)

== ENCOUNTER → 2024-11-24 13:48 | Outpatient (BNVA) | payer OTHER, SELFPAY | PROVIDERS: PCP Nurse Practitioner; Visit Provider Internal Medicine Medical Oncology | DX: I48.0 Paroxysmal atrial fibrillation (principal); I87.093 Postthrombotic syndrome with other complications of bilateral lower extremity; Z86.718 Personal history of other venous thrombosis and embolism; Z79.01 Long term (current) use of anticoagulants; Z51.81 Encounter for therapeutic drug level monitoring | CPT/HCPCS: 85610; 99211 ==

== ENCOUNTER 2024-12-08 11:29 | Outpatient (AMB) | payer OTHER, SELFPAY ==
--- NOTE | 2024-12-08 11:44 | MHC.OFFVISCO ---
Intake Intake Visit Reasons: Anticoagulation Allergies No Known Allergies Allergy (Verified 12/08/24 11:32) Medication List - Last Reconciled 12/08/24 by Sarah Larkin RN acetaminophen 1,000 mg PO Q12H PRN furosemide 20 mg PO DAILY gabapentin 200 mg PO BID metformin 500 mg PO BID metoprolol tartrate 25 mg PO BID oxycodone 5 mg PO QID PRN rosuvastatin 5 mg PO DAILY warfarin 5 mg See Protocol PO DAILY Nursing Note INR: 2.0?out of therapeutic range of 2.5-3.5 Medications and supplements reviewed Patient status: usual state of health Medications or supplements: no changes Diet: has been eating healthier, more greens Denies any signs and symptoms of bleeding or clotting or unusual bruising Bleeding, bruising, clotting discussed Nutritional guidance given: to avoid greens the next 2 days and will have foods that raise the INR the next 2 days. Food list discussed. Dose: increase today's dose to 10mg (7.5mg) and increae tomorrow's dose to 10mg (7.5mg) then weekly dose increased to 7.5mg X 6 days and 10mg X 1 day, an increase by 2.5mg F/U INR Date : pt insists on 2 weeks?? Patient verbalizing understanding of instructions given. T/C to Ronald Randall APRN to report critical value. Spoke to Felicita and INR of 2.0 reported to her with dosing plan and next retest date. Anti-Coag Initial Assessment Social Hx Patient Tobacco Use Status: Former Tobacco user (quit 1 year ago, uses vape 5% nicotine) Tobacco use type: Cigarette Smoking packs per day: 1 alcohol intake: former Alcohol intake frequency: does not drink Cardiovascular Hx: HTN, Arrhythmias (afib) and Varicose Veins Lung Disease HX: DVT/PE Endocrine Hx: Diabetes (borderline on oral agent) Cancer HX: No Psych. Illness/Depression: No Coding Level of Care Code Est Patient Level 1 Diagnoses Current use of anticoagulant therapy Z79.01 Results AMB INR Fingerstick AMB INR Fingerstick 2.0 Last Edit by Sarah Larkin RN on 12/08/24 11:38 interface delay Assessment & Plan Assessment & Plan (1) Current use of anticoagulant therapy: Code(s): Z79.01 - longterm (current) use of anticoagulants Category: Medical
[2024-12-08 11:56] LABS: Prothrombin Time Whole Bld POC 24.5 sec (11.1-13.5)
--- OUTSIDE RECORDS SUMMARY | 2024-12-08 12:30 | XMS_ITS ---
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 Name Role Phone Karin Randall Primary Care Provider [phone] REASON FOR VISIT oxy refill Medications Medication SIG (Take, Route, Frequency, Duration) Notes Start Date End Date Status oxyCODONE 5 mg 1 tab(s) orally every 6 hours for 30 days As needed Partial Fill upon Patient Request 11/20/2024 Active Encounters Encounter Location Date Provider Diagnosis [address] [phone] 11/20/2024 Karin Randall Chronic pain syndrome G89.4 Assessments Encounter Date Diagnosis (ICD Code) Assessment Notes Treatment Notes Treatment Clinical Notes 11/20/2024 Chronic pain syndrome (ICD-10 - G89.4) Plan Of Treatment Medication Medication Name Sig Start Date Stop Date Notes oxyCODONE 5 mg 1 tab(s) orally ever y 6 hours for 30 days 11/20/2024 Partial Fill upon Patient Request Progress Notes * Epifanio WALSH EDOB: [birth year] (44 yo M)Acc No.[id number]:11/20/2024 Patient:?Epifanio WALSH :1980???Age:44 Y???Sex:Male Address:[address] [place] [id number] * Refills? Refill oxyCODONE tablet, 5 mg, orally, 120, 1 tab(s), every 6 hours, 30 days, Refills=0 * true * Date:? Generated for Printi ng/Faxing/eTransmitting on:?12/08/2024 12:30 PM EDT
--- OUTSIDE RECORDS SUMMARY | 2024-12-08 12:30 | XMS_ITS | Patient Health Record ---
Author Organization [facility] Address [address], [place] [id number] Care Team Providers Care Inspector Metal Can Name Role Phone Hernan Manzano Primary Care Provider [facility], Nursing Unavailable [phone] Anurag Martinez Unavailable [phone] Allergies No Known Allergies Results Component Value Reference Range Notes INR Reviewed date:01/03/2024 07:38:46 PM Interpretation:3.1 Performing Lab: Notes/Report: 3.1 INR Reviewed date:01/03/2024 07:35:43 PM Interpretation:2.5 Performing Lab: Notes/Report: 2.5 INR Reviewed date:01/03/2024 07:36:55 PM Interpretation:4.4 Performing Lab: Notes/Report: 4.4 INR Reviewed date:01/03/2024 07:40:13 PM Interpretation:1.4 Performing Lab: Notes/Report: 1.4 PT/INR Reviewed date:01/21/2024 12:00:08 PM Interpretation:3.1 Performing Lab: Notes/Report: 3.1 PT/INR Reviewed date:01/21/2024 12:01:15 PM Interpretation:1.1 Performing Lab: Notes/Report: 1.1 PT/INR Reviewed date:01/21/2024 11:58:42 AM Interpretation:2.4 Performing Lab: Notes/Report: 2.4 INR Reviewed date:01/25/2024 04:02:45 PM Interpretation:1.8 Performing Lab: Notes/Report: 1.8 INR Reviewed date:01/31/2024 03:38:55 PM Interpretation:3.7 Performing Lab: Notes/Report: 3.7 INR Reviewed date:02/15/2024 03:35:26 PM Interpretation:4.9 Performing Lab: Notes/Report: 4.9 INR Reviewed date:02/15/2024 03:36:43 PM Interpretation:6.8 Performing Lab: Notes/Report: 6.8 INR Reviewed date:02/24/2024 02:04:40 PM Interpretation:1.7 Performing Lab: Notes/Report: 1.7 INR Reviewed date:04/17/2024 04:02:55 PM Interpretation:1.7 Performing Lab: Notes/Report: 1.7 INR Reviewed date:02/24/2024 02:03:07 PM Interpretation:3.1 Performing Lab: Notes/Report: 3.1 INR Reviewed date:04/17/2024 04:04:02 PM Interpretation:1.4 Performing Lab: Notes/Report: 1.4 INR Reviewed date:04/17/2024 04:05:22 PM Interpretation:2 Performing Lab: Notes/Report: 2 INR Reviewed date:04/17/2024 04:06:44 PM Interpretation:1.4 Performing Lab: Notes/Report: 1.4 INR Reviewed date:04/17/2024 04:08:15 PM Interpretation:2.2 Performing Lab: Notes/Report: 2.2 INR Reviewed date:04/17/2024 04:09:22 PM Interpretation:2.8 Performing Lab: Notes/Report: 2.8 INR Reviewed date:04/17/2024 04:10:29 PM Interpretation:3.5 Performing Lab: Notes/Report: 3.5 INR Reviewed date:04/17/2024 04:00:00 PM Interpretation:3.1 Performing Lab: Notes/Report: 3.1 INR Reviewed date:05/11/2024 05:03:07 AM Interpretation:2 Performing Lab: Notes/Report: 2 INR Reviewed date:05/11/2024 05:05:23 AM Interpretation:2.5 Performing Lab: Notes/Report: 2.5 INR Reviewed date:05/11/2024 05:06:42 AM Interpretation:1.2 Performing Lab: Notes/Report: 1.2 VITAMIN B12 Reviewed date:05/17/2024 02:44:52 AM Interpretation:Normal Performing Lab: Notes/Report: VITAMIN B12 464 250-900 pg/mL CBC Reviewed date:05/17/2024 02:44:14 AM Interpretation:Normal Performing Lab: Notes/Report: Original Ordering Provider: HERNAN MANZANO APRN WBC 4.4 4.8-10.8 x10-3/uL RBC 4.9 4.5-5.5 x10-6/uL HEMOGLOBIN 14.4 13.5-17.5 g/dL HEMATOCRIT 44.5 42-54 % MCV 90.8 79-98 fL MCH 29.4 27-32 pg MCHC 32.4 32-37 g/dL RDW 14.1 11-15 % PLT COUNT 218 130-400 x10-3/uL MEAN PLATELET VOLUME 10.4 7-11 fL NRBC % AUTO 0.0 <1 % NRBC # AUTO 0.00 <0.1 x10-3/uL COMPREHENSIVE METABOLIC PANE L Reviewed date:05/17/2024 02:43:23 AM Interpretation:Normal Performing Lab: Notes/Report: GLUCOSE 97 70-100 mg/dL Reference range applicable to fasting specimens only BUN 15 5-25 mg/dL CREAT 0.79 0.7-1.3 mg/dL GLOMERULAR FILTRATION RATE 112 >60 This eGFR result was calculated using the CKD-EPI 2020 Creatinine Equation SODIUM 140 135-145 mEq/L POTASSIUM 4.2 3.5-5.5 mmol/L CHLORIDE 107 96-110 mmol/L CO2 28 21-32 mmol/L ANION GAP 5 3-11 CALCIUM 9.3 8.5-10.5 mg/dL ALBUMIN 3.9 3.2-5.0 G/dL SGPT 34 10-60 U/L TOTAL PROTEIN 7.1 6.0-8.0 G/dL BILI,TOTAL 0.5 0.0-1.4 mg/dL SGOT 34 10-42 U/L ALK PHOS 69 42-121 U/L GLYCOHEMOGLOBIN PROFILE Reviewed date:05/17/2024 02:43:35 AM Interpretation:High Performing Lab: Notes/Report: GLYCATED HEMOGLOBIN A1C 6.1 <6.5 % ESTIMATED AVERAGE GLUCOSE 128 LIPID PROFILE Reviewed date:05/31/2024 08:52:47 AM Interpretation:Abnormal Performing Lab: Notes/Report: CHOLESTEROL 229 0-200 mg/dL TRIGLYCERIDES 113 0-150 mg/dL HDL CHOLESTEROL 52 >40 mg/dL LDL CALCULATED 155 0-100 mg/dL TC-HDLC RATIO 4.4 0-4.4 mg/dL MAGNESIUM Reviewed date:05/17/2024 02:43:08 AM Interpretation:Normal Performing Lab: Notes/Report: MAGNESIUM 2.1 1.9-2.6 mg/dL MICROALB/CREAT RATIO, RANDOM Reviewed date:05/17/2024 02:43:54 AM Interpretation:Normal Performing Lab: Notes/Report: CREATININE, RANDOM URINE 86 MICROALBUMIN, RANDOM < 5.0 0.0-29.0 mg/L MICROALB/CRE RATIO RANDOM < 5.8 0.0-30.0 mg/G VITAMIN D, 25-HYDROXY Reviewed date:05/17/2024 02:44:32 AM Interpretation:Low Performing Lab: Notes/Report: [employer] [address] [employer] Professional - Kaylin Leon MD VITAMIN D, 25-HYDROXY 11 30-80 ng/mL INR Reviewed date:05/24/2024 04:57:09 PM Interpretation:1.5 Performing Lab: Notes/Report: 1.5 INR Reviewed date:06/19/2024 03:57:47 PM Interpretation:2.9 Performing Lab: Notes/Report: 2.9 INR Reviewed date:06/19/2024 03:58:40 PM Interpretation:2.7 Performing Lab: Notes/Report: 2.7 INR Reviewed date:06/19/2024 04:00:12 PM Interpretation:1.8 Performing Lab: Notes/Report: 1.8 INR Reviewed date:06/19/2024 04:03:07 PM Interpretation:1.6 Performing Lab: Notes/Report: 1.6 INR Reviewed date:08/14/2024 03:23:51 PM Interpretation:4.5 Performing Lab: Notes/Report: 4.5 INR Reviewed date:08/14/2024 03:25:14 PM Interpretation:1.7 Performing Lab: Notes/Report: 1.7 INR Reviewed date:08/14/2024 03:26:19 PM Interpretation:2.4 Performing Lab: Notes/Report: 2.4 INR Reviewed date:08/14/2024 03:27:48 PM Interpretation:2.1 Performing Lab: Notes/Report: 2.1 INR Reviewed date:08/14/2024 03:28:55 PM Interpretation:3.2 Performing Lab: Notes/Report: 3.2 INR Reviewed date:08/14/2024 03:30:14 PM Interpretation:2.6 Performing Lab: Notes/Report: 2.6 INR Reviewed date:08/14/2024 03:32:17 PM Interpretation:1.4 Performing Lab: Notes/Report: 1.4 INR Reviewed date:08/14/2024 03:45:34 PM Interpretation:3; stay with 7 mg coumadin Performing Lab: Notes/Report: 3; stay with 7 mg coumadin Reason For Referral Reason [facility] . , [phone] Evaluate for chronic abdominal and bilateral leg pain Diagnosis 1 Chronic pain syndrom e (G89.4) Referral Organization [facility] Referring Provider First Name Hernan Referring Provider Last Name Tonia Referring Provider Speciality Nurse Funmilayo Norman Notes may attach latest OV note, Shawanda Rivera 05/16/2024 03:26:52 PM > referral refaxedDarrell Paris 09/04/2024 09:32:52 AM > pt. attended, notes requestedDarrell Paris 09/04/2024 11:53:07 AM > pt. attended, notes to scan Referral Priority Routine Referral Appointment Date 05/25/2024 Reason [facility], Anticoagulation Service, [address] [place] [id number] P: [phone] F: [phone] On Coumadin for history of PE, DVT, Paroxysmal Afib and Unstable chest pain. 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) Referral Organization [facility] Referring Provider First Name Hernan Referring Provider Last Name Tonia Referring Provider Speciality Nurse Funmilayo Norman Notes Felicita Ramírez 05/2025 11:16:59 AM > Called anticoagulation clinic awaiting a call back for location and fax number for referralDarrell Paris 10/10/2024 08:42:07 AM > [facility] [facility] [place] 11/13/2024 02:48:31 PM >appointment scheduled pt notified Referral Priority Routine Referral Appointment Date 11/17/2024 Medications Medication SIG (Take, Route, Frequency, Duration) Notes Start Date End Date Status Enoxaparin Sodium 150 mg/mL as directed subcutaneously every 12 hours for 3 days 11/03/2024 Active Metoprolol Tartrate 25 mg TAKE ONE TABLET BY MOUTH two (2) times a day orally 2 times a day for 90 days Active warfarin 5 mg 1 tab(s). total 7 mg orally once a day for 90 days Active furosemide 20 mg 1 tab(s) orally once a day for 90 days Active Jantoven 7.5 mg 1 tab(s) orally once a day 10/03/2024 Active rosuvastatin 5 mg 1 tab(s) orally once a day for 90 days Pls deliver to [facility] 01/12/2023 Active oxyCODONE 5 mg 1 tab(s) orally every 6 hours for 30 days As needed Partial Fill upon Patient Request 11/20/2024 Active metFORMIN 500 mg 1 tab(s) orally 2 times a day Active escitalopram 20 mg 1 tab(s) orally once a day Not-Taking acetaminophen 500 mg 2 tab(s) orally every 12 hours 12/25/2022 Not-Taking gabapentin 100 mg 1 cap(s) orally once a day pls fill after 04/06/24 Not-Taking traMADol 50 mg 1 tab(s) orally every 12 hours for 30 days 10/07/2023 Not-Taking levocetirizine 5 mg 1 tab(s) orally once a day (in the evening) for 30 days 09/14/2023 Not-Taking Immunizations Vaccine Route Administration Date Status Comme nts Hepatitis B (20 or more) IM Intramuscular 07/21/2021 Administered Hepatitis B (20 or more) IM Intramuscular 08/18/2021 Administered [facility] [id number] Moderna Covid-19 Vaccine Administration - First Dose (Single Dose 100MCG/0.5ML 1ST) Unknown 11/01/2020 Administered Moderna Covid-19 Vaccine Administration - Second Dose (Single Dose 100 MCG/0.5ML 2ND) Unknown 12/19/2020 Administered Hepatitis B (20 or more) IM Intramuscular 09/16/2023 Administered [facility] [id number] Social History Tobacco Use Assessment MU Question Answer Notes What is your current smoking status? Vaping only Problems Problem Type SNOMED Code ICD Code Onset Dates Problem Status W/U Status Risk Notes Problem Morbid obesity (disorder) (268312940) Morbid (severe) obesity due to excess calories (E66.01) Active confirmed Problem Obesity (283025888) Obesity, unspecified (E66.9) Active confirmed Problem Mixed hyperlipidemia (880295619) Mixed hyperlipidemia (E78.2) Active confirmed Problem Alcohol abuse (47860073) Alcohol abuse, uncomplicated (F10.10) Active confirmed Problem Tobacco user (873120579) Nicotine dependence, cigarettes, uncomplicated (F17.210) Active confirmed Problem Tobacco user (475387558) Nicotine dependence, other tobacco product, uncomplicated (F17.290) Active confirmed Problem Anxiety disorder (719559309) Anxiety disorder, unspecified (F41.9) Active confirmed Problem Chronic pain syndrome (276515144) Chronic pain syndrome (G89.4) Active confirmed Problem Essential hypertension (43468077) Essential (primary) hypertension (I10) Active confirmed Problem Angina pectoris (857106956) Angina pectoris, unspecified (I20.9) Active confirmed Problem Paroxysmal atrial fibrillation (401459060) Paroxysmal atrial fibrillation (I48.0) Active confirmed Problem 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) Active confirmed Problem Onycholysis (87329394) Onycholysis (L60.1) Active confirmed Problem Pain of right knee region (finding) (628613972765898) Pain in right knee (M25.561) Active confirmed Problem Long-term current use of anticoagulant (693236626) oil heaterman (current) use of anticoagulants (Z79.01) Active confirmed Problem History of pulmonary embolus (785128099) Personal history of pulmonary embolism (Z86.711) Active confirmed Problem History of thromboembolism of vein (880180238) Personal history of other venous thrombosis and embolism (Z86.718) Active confirmed BLE DVT [address] Problem Obsessive-compulsi ve disorder (268958722) Obsessive-compuls jose m disorder, unspecified (F42.9) Active confirmed Problem Prediabetes (268221037) Prediabetes (R73.03) 021 Active confirmed A1c 5.9% 06/04/21 Problem Body mass index 40+ - severely obese (571640272) Body mass index [BMI] 45.0-49.9, adult (Z68.42) Active confirmed Problem Sheltered homelessness (349312397352389) Sheltered homelessness (Z59.01) Active confirmed Problem 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 Dx Problem Hyperlipidemia (46188409) Hyperlipidemia, unspecified (E78.5) 021 Inactive confirmed 102/112 /44/138 06/04/20 21 Problem Insomnia (758533542) Insomnia, unspecified (G47.00) Inactive confirmed Problem Body mass index 40+ - severely obese (915075854) Body mass index [BMI] 40.0-44.9, adult (Z68.41) Inactive confirmed Vital Signs Temperature 98.1 degrees Fahrenheit 09/19/2024 Blood pressure diastolic 96 09/19/2024 Oximetry 97 09/19/2024 Height 68.5 in 09/19/2024 Blood pressure systolic 145 09/19/2024 Weight 320 lbs 09/19/2024 BMI 47.94 kg/m2 09/19/2024 Encounters Encounter Location Date Provider Diagnosis [address] [id number] 12/30/2023 Hernan Manzano Encounter for screening for COVID-19 Z11.52 ; 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 I87.093 ; Pain in leg, unspecified M79.606 ; Unspecified abdominal pain R10.9 ; Sheltered homelessness Z59.01 ; Morbid (severe) obesity due to excess calories E66.01 and Nicotine dependence, cigarettes, uncomplicated F17.[address] [id number] 02/01/2024 Edmary Manzano 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 I87.093 and Personal history of other venous thrombosis and embolism Z86.[address] [place] [id number] 02/24/2024 Hernan Manzano [facility]19 U07.1 [facility] [address] [place], [place] [id number] 03/06/2024 Eddieliza Casionan 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 I87.[address] [id number] 05/02/2024 Eddieliza Casionan Chronic pain syndrome G89.4 ; Body mass index [BMI] 45.0-49.9, adult Z68.42 ; Encounter for screening for COVID-19 Z11.52 ; Prediabetes R73.03 ; Essential (primary) hypertension I10 and Mixed hyperlipidemia E78.[address] [id number] 05/16/2024 Nursing [facility] [address] [place] [id number] 06/01/2024 Eddieliza Casionan Chronic pain syndrome G89.[address] [id number] 09/19/2024 Eddieliza Casionan Encounter for screening for COVID-19 Z11.52 ; Chronic pain syndrome G89.4 ; Prediabetes R73.03 ; Paroxysmal atrial fibrillation I48.0 ; Nicotine dependence, other tobacco product, uncomplicated F17.290 and Personal history of other venous thrombosis and embolism Z86.[address] [id number] 12/22/2023 Eddieliza Casionan [address] [id number] 12/24/2023 Eddieliza Casionan 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 I87.[address] [id number] 12/28/2023 Eddieliza Casionan [address] [id number] 01/03/2024 Eddieliza Casionan [address] [id number] 01/03/2024 Eddieliza Casionan [address] [id number] 01/19/2024 Eddieliza Casionan [address] [id number] 01/21/2024 Eddieliza Casionan [facility] [address] [place] [address] [id number] 01/25/2024 Eddieliza Casionan [facility] [address] [place] [address] [id number] 01/31/2024 Eddieliza Casionan [address] [id number] 02/15/2024 Eddieliza Casionan 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 I87.[address] [id number] 02/21/2024 Eddieliza Casionan [address] [id number] 02/24/2024 Eddieliza Casionan [address] [id number] 03/06/2024 Eddieliza Casionan [address] [id number] 03/10/2024 Eddieliza Casionan 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 I87.[address] [id number] 03/13/2024 Eddieliza Casionan [address] [id number] 03/16/2024 Eddieliza Casionan [address] [id number] 03/27/2024 Eddieliza Casionan 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 I87.[address] [id number] 03/30/2024 Eddieliza Casionan [address] [id number] 04/27/2024 Eddieliza Casionan 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 I87.[address] [id number] 04/29/2024 Eddieliza Casionan [address] [id number] 05/11/2024 Eddieliza Casionan Chronic pain syndrome G89.[address] [id number] 05/19/2024 Eddieliza Casionan [address] [id number] 05/23/2024 Eddieliza Casionan [address] [id number] 05/28/2024 Eddieliza Casionan Chronic pain syndrome G89.[address] [id number] 05/30/2024 Eddieliza Casionan Chronic pain syndrome G89.4 and Mixed hyperlipidemia E78.[address] [id number] 06/16/2024 Eddieliza Casionan [address] [id number] 06/16/2024 Eddieliza Casionan Chronic pain syndrome G89.[address] [id number] 06/29/2024 Eddieliza Casionan Chronic pain syndrome G89.[address] [id number] 07/25/2024 Eddieliza Casionan [address] [id number] 07/25/2024 Eddieliza Casionan Chronic pain syndrome G89.[address] [id number] 07/31/2024 Eddieliza Casionan [address] [id number] 08/04/2024 Eddieliza Casionan [address] [id number] 08/07/2024 Eddieliza Casionan [address] [id number] 08/24/2024 Eddieliza Casionan Chronic pain syndrome G89.[address] [id number] 10/03/2024 Eddieliza Casionan [address] [id number] 10/06/2024 Eddieliza Casionan Paroxysmal atrial fibrillation I48.0 ; Personal history of other venous thrombosis and embolism Z86.718 and 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 I87.[address] [id number] 10/17/2024 Eddieliza Casionan Chronic pain syndrome G89.4 ; Personal history of pulmonary embolism Z86.711 ; Personal history of other venous thrombosis and embolism Z86.718 ; Paroxysmal atrial fibrillation I48.0 ; long-term (current) use of anticoagulants Z79.01 and 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 I87.[address] [id number] 10/25/2024 Anurag Martinez Chronic pain syndrom e G89.[address] [id number] 11/03/2024 Eddieliza Casionan [address] [id number] 11/03/2024 Eddieliza Casionan [address] [id number] 11/07/2024 Eddieliza Casionan Chronic pain syndrome G89.[address] [id number] 11/20/2024 Eddieliza Casionan Chronic pain syndrome G89.[address] [id number] 11/28/2024 Eddieliza Casionan Chronic pain syndrome G89.4 and Paroxysmal atrial fibrillation I48.0 Assessments Encounter Date Diagnosis (ICD Code) Assessment Notes Treat ment Notes Treatment Clinical Notes 12/30/2023 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 (ICD-10 - I87.093) Symptomatic treatment with pain medications and compression devices. During the visit we called Dr. Jimenez's office to ask about pre-op with client on Coumadin. We talked to Cynthia, who relayed us the message of possibly holding Coumadin for 3 days pre-op. I explained that he is on Coumadin for DVT, Paroxysmal Afib and chest pain. I will be concerned of a subtherapeutic INR while he is driving on his motorcycle at 3 am for 3 hours to get to his Surgery. I recommended admission pre-op for closer monitoring of his INR. I gave the office my number. 12/30/2023 Encounter for screening for COVID-19 (ICD-10 - Z11.52) Covid screening is negative. Discussed in detail with patient how to practice social distancing by avoiding public spaces and crowds now, wearing a mask in public to keep nose and mouth covered, and washing hands frequently especially before eating and after using the bathroom. Return to clinic if you develop any symptoms of concern to be rescreened or go to the emergency room if you are having concerning symptoms for COVID-19. 02/01/2024 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 (ICD-10 - I87.093) improved pain after surgery He is much happier He is down to 3 tabs from 4 tabs of oxycodone in a day for 1 week. Advised to stay on that for total of 2 weeks and try to go down by 1/2 pill every 2 weeks. 02/24/2024 COVID-19 (ICD-10 - U07.1) Reports that Dayquill is helping with his symptomsso he can continue with that. Will add Zofran for the nausea. Offered Paxlovid which he declined. He agrees to isolate himself until asymptomatic x 24 hours. Emphasized adequate rest, fluids and nutrition. Go to the ED for new dyspnea and chest pain 03/06/2024 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 (ICD-10 - I87.093) we will do pain management recommendations. We will cut down Gabapentin from 300 to 200 mg BID and continue with Oxycodone and APAP 05/02/2024 Chronic pain syndrome (ICD-10 - G89.4) Complains of abdominal pain and bilateral leg pain in the setting of post thrombotic syndrome Explained that he cannot be on terminal manager oxycodone, unless other options as advised by pain management is exhausted. Encouraged to go back to pain management and give their suggestions a chance. He says he will think about it 05/02/2024 Body mass index [BMI] 45.0-49.9, adult (ICD-10 - Z68.42) Engaged discussion on maintaining healthy lifestyle: healthy diet low on fats and simple carbohydrates, and regular physical exercise of at least 30 minutes daily 06/01/2024 Chronic pain syndrome (ICD-10 - G89.4) Based on his Morphine Equivalence daily use which is 37.5, we will start him on 10 mcg/hr 09/19/2024 Chronic pain syndrome (ICD-10 - G89.4) He agrees to call pain management 09/19/2024 Encounter for screening for COVID-19 (ICD-10 - Z11.52) Covid screening is negative. Discussed in detail with patient how to practice social distancing by avoiding public spaces and crowds now, wearing a mask in public to keep nose and mouth covered, and washing hands frequently especially before eating and after using the bathroom. Return to clinic if you develop any symptoms of concern to be rescreened or go to the emergency room if you are having concerning symptoms for COVID-19. 12/24/2023 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 (ICD-10 - I87.093) 02/15/2024 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 (ICD-10 - I87.093) 03/10/2024 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 (ICD-10 - I87.093) 03/27/2024 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 (ICD-10 - I87.093) 04/27/2024 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 (ICD-10 - I87.093) 05/11/2024 Chronic pain syndrome (ICD-10 - G89.4) 05/28/2024 Chronic pain syndrome (ICD-10 - G89.4) 05/30/2024 Chronic pain syndrome (ICD-10 - G89.4) 06/16/2024 Chronic pain syndrome (ICD-10 - G89.4) 06/29/2024 Chronic pain syndrome (ICD-10 - G89.4) 07/25/2024 Chronic pain syndrome (ICD-10 - G89.4) 08/24/2024 Chronic pain syndrome (ICD-10 - G89.4) 10/06/2024 Paroxysmal atrial fibrillation (ICD-10 - I48.0) 10/17/2024 Chronic pain syndrome (ICD-10 - G89.4) 10/25/2024 Chronic pain syndrome (ICD-10 - G89.4) 11/07/2024 Chronic pain syndrome (ICD-10 - G89.4) 11/20/2024 Chronic pain syndrome (ICD-10 - G89.4) 11/28/2024 Chronic pain syndrome (ICD-10 - G89.4) 12/30/2023 Pain in leg, unspecified (ICD-10 - M79.606) We will continue with present treatment and hope for improvement with surgery and better options with pain management 02/01/2024 Personal history of other venous thrombosis and embolism (ICD-10 - Z86.718) BLE DVT [address] we continue to monitor his INR and a visiting nurse checks his INR 05/02/2024 Encounter for screening for COVID-19 (ICD-10 - Z11.52) Covid screening is negative. Discussed in detail with patient how to practice social distancing by avoiding public spaces and crowds now, wearing a mask in public to keep nose and mouth covered, and washing hands frequently especially before eating and after using the bathroom. Return to clinic if you develop any symptoms of concern to be rescreened or go to the emergency room if you are having concerning symptoms for COVID-19. 09/19/2024 Prediabetes (ICD-10 - R73.03) A1c 5.9% 06/04/21 will check A1C 05/30/2024 Mixed hyperlipidemia (ICD-10 - E78.2) 10/06/2024 Personal history of other venous thrombosis and embolism (ICD-10 - Z86.718) BLE DVT [address] 10/17/2024 Personal history of pulmonary embolism (ICD-10 - Z86.711) Advised to have blood draw in our clinic or to [facility] while waiting for [facility] acceptance. Offered lab draw today while we are at [facility] he declined 11/28/2024 Paroxysmal atrial fibrillation (ICD-10 - I48.0) 12/30/2023 Unspecified abdominal pain (ICD-10 - R10.9) He reports improvement with non dairy products. 05/02/2024 Prediabetes (ICD-10 - R73.03) A1c 5.9% 06/04/21 We will check labs 09/19/2024 Paroxysmal atrial fibrillation (ICD-10 - I48.0) Denies palpitations or chest pain 10/06/2024 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 (ICD-10 - I87.093) 10/17/2024 Personal history of other venous thrombosis and embolism (ICD-10 - Z86.718) BLE DVT [address] 12/30/2023 Sheltered homelessness (ICD-10 - Z59.01) Staying at [facility] 05/02/2024 Essential (primary) hypertension (ICD-10 - I10) BP stable 09/19/2024 Nicotine dependence, other tobacco product, uncomplicated (ICD-10 - F17.290) He reports stopping 10/17/2024 Paroxysmal atrial fibrillation (ICD-10 - I48.0) 12/30/2023 Morbid (severe) obesity due to excess calories (ICD-10 - E66.01) Reports trying to eat healthier. Unable to do enough physical exercise due to pain and abdominal and leg edema 05/02/2024 Mixed hyperlipidemia (ICD-10 - E78.2) will check lipid profile 09/19/2024 Personal history of other venous thrombosis and embolism (ICD-10 - Z86.718) BLE DVT [address] He is aware that management will be conservative and the goal for his INR is 2.5 - 3.5 which after being stable for a while, he is lately subtherapeutic on 7 mg Coumadin. Emphasized that any change in diet or medications can affect Coumadin. He reports that lately he had been taking NyQuil and since being on it, his Coumadin had been subtherapeutic. 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 We will attempt to reach you by telephone to discuss the test results. If we cannot reach you by telephone, we will mail you your results to the address we have on file. In all cases, results will be reviewed at your next office visit. We will contact you sooner if you have a telephone or address where we can reach you for abnormal test results requiring immediate action. Labs drawn by: LF 06/01/2024 Other Time spent in visit: 10 minutes 09/19/2024 Other Plan Of Treatment Pending Test Test Name Order Date VITAMIN B12 05/02/2024 VITAMIN B12 08/04/2022 B-TYPE NATRIURETIC PEPTIDE 08/04/2022 CBC 08/04/2022 CBC 09/19/2024 CBC 05/02/2024 CBC 06/01/2024 CHLAMYDIA / GC DNA W RFLX 08/04/2022 COMPREHENSIVE METABOLIC PANEL 05/02/2024 COMPREHENSIVE METABOLIC PANEL 08/04/2022 COMPREHENSIVE METABOLIC PANEL 06/01/2024 COMPREHENSIVE METABOLIC PANEL 09/19/2024 GLYCOHEMOGLOBIN PROFILE 09/19/2024 GLYCOHEMOGLOBIN PROFILE 08/04/2022 GLYCOHEMOGLOBIN PROFILE 05/02/2024 HIV 1 AND 2 ANTIBODY SCREEN 08/04/2022 LIPID PROFILE 05/02/2024 LIPID PROFILE 08/04/2022 LIPID PROFILE 09/19/2024 MEASLES PROFILE 08/04/2022 MAGNESIUM 08/04/2022 MAGNESIUM 05/02/2024 PT/INR 09/19/2024 TREPONEMAL AB 08/04/2022 TSH CASCADE 08/04/2022 URINALYSIS 08/04/2022 MICROALB/CREAT RATIO, RANDOM 05/02/2024 VITAMIN D, 25-HYDROXY 05/02/2024 CR Knee RT 3 View 09/15/2022 HEPATITIS A,B,C PROFILE 08/04/2022 QUANTIFERON(R)-TB GOLD PLUS, 1 TUBE 12/0 01/2022 EKG 08/04/2022 US Abdomen 04/05/2023 COMPREHENSIVE METABOLIC PANEL 09/19/2024 Insurance Providers Payer Name Payer Address Payer Phone Subscriber Number Group Number Insured Name Patient Relationship to Insured Coverage Start Date Coverage End Date [facility] [address] [place] [address] [phone] [id number] Rxhix Epifanio Rodgers Self - patient is the insured 5 Medical (General) History Medical History History ICD Code ETOH, rehab: S/A 04/2021 COVID: Sep 2020 DVT: #2 Left LE 03/2021 Chronic Afib tobacco use Anxiety/Sleep terrors Obesity Right upper quadrant pain R10.11 YARON, AUD, OCD Surgical History Surgery Date(Month/Year) IVC Filter placed to prevent emboli travelling- hx drinking to excess and ends up with clot age 35 right hand: rebuilt # 5-> boxer frx age 26 Hospitalization History Reason Date(Month/Year) [facility] rectal bleeding 05/2023 PE age 35 [address] [facility] age 35 Alcohol Detox, no psychiatric hospitaliz ations Blood Clots
--- OUTSIDE RECORDS SUMMARY | 2024-12-08 12:30 | XMS_ITS ---
Author Organization [facility] Address [address] [place] [id number] Care Team Providers Care Undraped Artist Model Name Role Phone Karin Randall Primary Care Provider [phone] REASON FOR VISIT Oxy refill Medications Medication SIG (Take, Route, Frequency, Duration) Notes Start Date End Date Status oxyCODONE 5 mg 1 tab(s) orally every 6 hours for 15 days As needed Partial Fill upon Patient Request 11/07/2024 Active Encounters Encounter Location Date Provider Diagnosis [address] [id number] 11/07/2024 Karin Randall Chronic pain syndrome G89.4 [...] Epifanio WALSH EDOB: [birth year] (44 yo M)Acc No.[id number]:11/07/2024 Patient:?Epifanio WALSH :1980???Age:44 Y???Sex:Male Address:[address] [place] [id number] * Refills? Refill oxyCODONE tablet, 5 mg, orally, 60 Tablet, 1 tab(s), every 6 hours, 15 days, Refills=0 * true * Date:? Generated for Printi ng/Faxing/eTransmitting on:?12/08/2024 12:30 PM EDT
--- OUTSIDE RECORDS SUMMARY | 2024-12-08 12:30 | XMS_ITS ---
Author Organization [facility] Address [address] [place] [phone] Care Team Providers Care Disk Grinder Name Role Phone Karin Randall Primary Care Provider [phone] REASON FOR VISIT refill Medications Medication SIG (Take, Route, Frequency, Duration) Notes Start Date End Date Status warfarin 5 mg 1 tab(s). total 7 mg orally once a day for 90 days Active Encounters Encounter Location Date Provider Diagnosis [address] [id number] 11/28/2024 Karin Randall Chronic pain syndrome G89.4 and Paroxysmal atrial fibrillation I48.0 Assessments Encounter Date Diagnosis (ICD Code) Assessment Notes Treat ment Notes Treatment Clinical Notes 11/28/2024 Chronic pain syndrome (ICD-10 - G89.4) 11/28/2024 Paroxysmal atrial fibrillation (ICD-10 - I48.0) Plan Of Treatment Medication Medication Name Sig Start Date Stop Date Notes Butrans 10 mcg/hr 1 PATCH transdermally once a week 2023 warfarin 5 mg 1 tab(s). total 7 mg orally once a day for 90 days Progress Notes * Epifanio WALSH EDOB: [birth year] (44 yo M)Acc No.[id number]:11/28/2024 Patient:?Epifanio WALSH :1980???Age:44 Y???Sex:Male Address:[address] [place] [id number] * Refills? Stop Butrans film, extended release, 10 mcg/hr, transdermally, 1 PATCH, once a week Refill warfarin tablet, 5 mg, orally, 90, 1 tab(s). total 7 mg, once a day, 90 days, Refills=0 * true * Date:? Generated for [employer] wayne/Rosalia/Caitlinitting on:?12/08/2024 12:30 PM EDT
== END 2024-12-08 14:16 | disposition home or self-care (01) ==
LOC: HO.ACS 11:29
PROVIDERS: PCP Nurse Practitioner; Visit Provider Internal Medicine Medical Oncology
DX: Z79.01 Long term (current) use of anticoagulants (principal)

== ENCOUNTER → 2024-12-08 11:29 | Outpatient (BNVA) | payer OTHER, SELFPAY | PROVIDERS: PCP Nurse Practitioner; Visit Provider Internal Medicine Medical Oncology | DX: I48.0 Paroxysmal atrial fibrillation (principal); Z86.718 Personal history of other venous thrombosis and embolism; Z51.81 Encounter for therapeutic drug level monitoring; Z79.01 Long term (current) use of anticoagulants | CPT/HCPCS: 85610; 99211 ==

== ENCOUNTER 2024-12-22 12:59 | Outpatient (AMB) | payer OTHER, SELFPAY ==
[2024-12-22 13:10] LABS: Prothrombin Time Whole Bld POC 29.1 sec (11.1-13.5); ~PT, ~INR - Anti Coag Clinic 2.4 (0.9-1.1)
--- NOTE | 2024-12-22 13:15 | MHC.OFFVISCO ---
Intake Intake Visit Reasons: Anticoagulation Allergies No Known Allergies Allergy (Verified 12/22/24 13:04) Medication List - Last Reconciled 12/22/24 by Ashley Estrada, RN acetaminophen 1,000 mg PO Q12H PRN furosemide 20 mg PO DAILY gabapentin 200 mg PO BID metformin 500 mg PO BID metoprolol tartrate 25 mg PO BID oxycodone 5 mg PO QID PRN rosuvastatin 5 mg PO DAILY warfarin 5 mg See Protocol PO DAILY Nursing Note INR: 2.4 in therapeutic range Medications and supplements reviewed No changes in health, diet, medications, or supplements, Denies any signs and symptoms of bleeding or bruising or clotting. Bleeding, bruising, clotting discussed Nutritional guidance given Dose: 10MG X 1 DAY/ 7.5MG X 6 DAYS F/U INR: 2 WEEKS Patient verbalizes understanding of instructions given Anti-Coag Initial Assessment Social Hx Patient Tobacco Use Status: Former Tobacco user (quit 1 year ago, uses vape 5% nicotine) Tobacco use type: Cigarette Smoking packs per day: 1 alcohol intake: former Alcohol intake frequency: does not drink Cardiovascular Hx: HTN, Arrhythmias (afib) and Varicose Veins Lung Disease HX: DVT/PE Endocrine Hx: Diabetes (borderline on oral agent) Cancer HX: No Psych. Illness/Depression: No Coding Level of Care Code Est Patient Level 1 Diagnoses Current use of anticoagulant therapy Z79.01 Assessment & Plan Assessment & Plan (1) Current use of anticoagulant therapy: Code(s): Z79.01 - [facility]FP (current) use of anticoagulants Category: Medical
== END 2024-12-22 13:17 | disposition home or self-care (01) ==
LOC: HO.ACS 12:59
PROVIDERS: PCP Nurse Practitioner; Visit Provider Internal Medicine Medical Oncology
DX: Z79.01 Long term (current) use of anticoagulants (principal)

== ENCOUNTER → 2024-12-22 12:59 | Outpatient (BNVA) | payer OTHER, SELFPAY | PROVIDERS: PCP Nurse Practitioner; Visit Provider Internal Medicine Medical Oncology | DX: I48.0 Paroxysmal atrial fibrillation (principal); I87.093 Postthrombotic syndrome with other complications of bilateral lower extremity; Z86.718 Personal history of other venous thrombosis and embolism; Z79.01 Long term (current) use of anticoagulants; Z51.81 Encounter for therapeutic drug level monitoring | CPT/HCPCS: 85610; 99211 ==

== ENCOUNTER 2025-01-12 10:10 | Outpatient (AMB) | payer OTHER, SELFPAY ==
--- OUTSIDE RECORDS SUMMARY | 2025-01-12 10:27 | XMS_ITS | Patient Health Record ---
Author Organization [facility] Address [address] [place], [place] [id number] Care Team Providers Care Skiver Operator Name Role Phone Hernan Manzano Primary Care Provider [facility], Nursing Unavailable [phone] Anurag Martinez Unavailable [phone] Allergies No Known Allergies Results Component Value Reference Range Notes PT/INR Reviewed date:01/21/2024 12:01:15 PM Interpretation:1.1 Performing [...] date:05/17/2024 02:44:32 AM Interpretation:Low Performing Lab: Notes/Report: [facility], a member of [address] [address] Vessel Operator - Kaylin Leon MD VITAMIN D, 25-HYDROXY [...] 7 mg coumadin Reason For Referral Reason [facility] . , [phone] Evaluate for chronic abdominal and bilateral leg pain Diagnosis 1 Chronic pain syndrom e (G89.4) Referral Organization [facility] Referring Provider First Name Hernan Referring Provider Last Name Tonia Referring Provider Speciality Nurse Funmilayo Norman Notes may attach latest OV note, NicoleDonnaShawanda 05/16/2024 03:26:52 PM > referral refaxed, Felicita Ramírez 09/04/2024 09:32:52 AM > pt. attended, notes requested, Felicita Ramírez 09/04/2024 11:53:07 AM > pt. attended, notes to scan Referral Priority Routine Referral Appointment Date 05/25/2024 [facility] er, Anticoagulation Service, [address] [place] [id number] P: [phone] F: [phone] On Coumadin for history of PE, DVT, Paroxysmal Afib and Unstable chest pain. 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) Referral Organization [facility] Referring Provider First Name Hernan Referring Provider Last Name Tonia Referring Provider Speciality Nurse Funmilayo Norman Notes Felicita Ramírez 05/2025 11:16:59 AM > Called anticoagulation clinic awaiting a call back for location and fax number for referral, Felicita Ramírez 10/10/2024 08:42:07 AM > [facility] [place], [facility] 11/13/2024 02:48:31 PM >appointment scheduled pt notified Referral Priority Routine Referral Appointment Date 11/17/2024 Medications Medication SIG (Take, Route, Frequency, Duration) Notes Start Date End Date Status Enoxaparin Sodium 150 mg/mL as directed subcutaneously every 12 hours for 3 days 11/03/2024 Active oxyCODONE 5 mg 1 tab(s) orally every 6 hours for 30 days As needed Partial Fill upon Patient Request 12/19/2024 Active Metoprolol Tartrate 25 mg TAKE ONE [...] day for 90 days Pls deliver to [facility] 01/12/2023 Active metFORMIN 500 mg 1 tab(s) orally [...] (20 or more) IM Intramuscular 08/18/[address] [facility] [id number] Moderna Covid-19 Vaccine Administration - First Dose (Single Dose 100MCG/0.5ML 1ST) Unknown 11/01/2020 Administered Moderna Covid-19 Vaccine Administration - Second Dose (Single Dose 100 MCG/0.5ML 2ND) Unknown 12/19/2020 Administered Hepatitis B (20 or more) IM Intramuscular 09/16/[address] [facility] [id number] Social History Tobacco Use Assessment MU Question Answer Notes What is your current smoking status? Vaping only Problems Problem Type SNOMED Code ICD Code Onset Dates Problem Status W/U Status Risk Notes Problem Morbid obesity (disorder) (087532568) Morbid (severe) obesity due to excess calories (E66.01) Active confirmed Problem Obesity (057171572) Obesity, unspecified (E66.9) Active confirmed Problem Mixed hyperlipidemia (222392142) Mixed hyperlipidemia (E78.2) Active confirmed Problem Alcohol abuse (96944930) Alcohol abuse, uncomplicated (F10.10) Active confirmed Problem Tobacco user (740860238) Nicotine dependence, cigarettes, uncomplicated (F17.210) Active confirmed Problem Tobacco user (806776342) Nicotine dependence, other tobacco product, uncomplicated (F17.290) Active confirmed Problem Anxiety disorder (593428482) Anxiety disorder, unspecified (F41.9) Active confirmed Problem Chronic pain syndrome (902422607) Chronic pain syndrome (G89.4) Active confirmed Problem Essential hypertension (15917942) Essential (primary) hypertension (I10) Active confirmed Problem Angina pectoris (601431800) Angina pectoris, unspecified (I20.9) Active confirmed Problem Paroxysmal atrial fibrillation (519079638) Paroxysmal atrial fibrillation (I48.0) Active confirmed Problem 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) Active confirmed Problem Onycholysis (01899206) Onycholysis (L60.1) Active confirmed Problem Pain of right knee region (finding) (197110366958291) Pain in right knee (M25.561) Active confirmed Problem Long-term current use of anticoagulant (885106568) retirement (current) use of anticoagulants (Z79.01) Active confirmed Problem History of pulmonary embolus (499745629) Personal history of pulmonary embolism (Z86.711) Active confirmed Problem History of thromboembolism of vein (499339846) Personal history of other venous thrombosis and embolism (Z86.718) Active confirmed BLE DVT [address] Problem Obsessive-compulsi ve disorder (614398124) Obsessive-compuls jose m disorder, unspecified (F42.9) Active confirmed Problem Prediabetes (456115295) Prediabetes (R73.03) Active confirmed A1c 5.9% 06/04/21 Problem Body mass index 40+ - severely obese (420132858) Body mass index [BMI] 45.0-49.9, adult (Z68.42) Active confirmed Problem Sheltered homelessness (545778824721032) Sheltered homelessness (Z59.01) Active confirmed Problem 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 Dx Problem Hyperlipidemia (72549218) Hyperlipidemia, unspecified (E78.5) Inactive confirmed 102/112 /44/138 06/04/20 21 Problem Insomnia (835239951) Insomnia, unspecified (G47.00) Inactive confirmed Problem Body mass index 40+ - severely obese (327608971) Body mass index [BMI] 40.0-44.9, adult (Z68.41) Inactive confirmed Vital Signs Temperature 98.1 degrees Fahrenheit 09/19/2024 Blood pressure diastolic 96 09/19/2024 Oximetry 97 09/19/2024 Height 68.5 in 09/19/2024 Blood pressure systolic 145 09/19/2024 Weight 320 lbs 09/19/2024 BMI 47.94 kg/m2 09/19/2024 Encounters Encounter Location Date Provider Diagnosis [address] [id number] 02/01/2024 Eddieliza Casionan 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 I87.093 and Personal history of other venous thrombosis and embolism Z86.718 [facility] [address] [place] [address] [id number] 02/24/2024 Eddieliza Casionan COVID-19 U07.1 [facility] [address] [place] [address] [id number] 03/06/2024 Eddieliza Casionan 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 I87.[address] [id number] 05/02/2024 Eddieliza Casionan Chronic pain syndrome G89.4 ; Body mass index [BMI] 45.0-49.9, adult Z68.42 ; Encounter for screening for COVID-19 Z11.52 ; Prediabetes R73.03 ; Essential (primary) hypertension I10 and Mixed hyperlipidemia E78.[address] [id number] 05/16/2024 Nursing [facility] [address] [place] [address] [place] [id number] 06/01/2024 Eddieliza Casionan Chronic pain syndrome G89.[address] [id number] 09/19/2024 Eddieliza Casionan Encounter for screening for COVID-19 Z11.52 ; Chronic pain syndrome G89.4 ; Prediabetes R73.03 ; Paroxysmal atrial fibrillation I48.0 ; Nicotine dependence, other tobacco product, uncomplicated F17.290 and Personal history of other venous thrombosis and embolism Z86.[address] [id number] 01/19/2024 Eddieliza Casionan [address] [id number] 01/21/2024 Eddieliza Casionan [address] [id number] 01/25/2024 Eddieliza Casionan [address] [id number] 01/31/2024 Eddieliza Casionan [address] [id number] 02/15/2024 Eddieliza Casionan 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 I87.[address] [id number] 02/21/2024 Eddieliza Casionan [address] [id number] 02/24/2024 Eddieliza Casionan [address] [id number] 03/06/2024 Eddieliza Casionan [address] [id number] 03/10/2024 Eddieliza Casionan 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 I87.[address] [id number] 03/13/2024 Eddieliza Casionan [address] [id number] 03/16/2024 Eddieliza Casionan [address] [id number] 03/27/2024 Eddieliza Casionan 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 I87.[address] [id number] 03/30/2024 Eddieliza Casionan [address] [id number] 04/27/2024 Eddieliza Casionan 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 I87.[address] [id number] 04/29/2024 Eddieliza Casionan [facility] [address] [place], [place] [id number] 05/11/2024 Eddieliza Casionan Chronic pain syndrome G89.4 [facility] [address] [place], [place] [id number] 05/19/2024 Eddieliza Casionan [address] [id number] 05/23/2024 Eddieliza Casionan [facility] [address] [place] [id number] 05/28/2024 Eddieliza Casionan Chronic pain syndrome G89.[address] [id number] 05/30/2024 Eddieliza Casionan Chronic pain syndrome G89.4 and Mixed hyperlipidemia E78.[address] [id number] 06/16/2024 Eddieliza Casionan [address] [id number] 06/16/2024 Eddieliza Casionan Chronic pain syndrome G89.[address] [id number] 06/29/2024 Eddieliza Casionan Chronic pain syndrome G89.[address] [id number] 07/25/2024 Eddieliza Casionan [address] [id number] 07/25/2024 Eddieliza Casionan Chronic pain syndrome G89.[address] [id number] 07/31/2024 Eddieliza Casionan [address] [id number] 08/04/2024 Eddieliza Casionan [facility] [address] [place] [address] [id number] 08/07/2024 Eddieliza Casionan [facility] [address] [place] [address] [id number] 08/24/2024 Eddieliza Casionan Chronic pain syndrome G89.[address] [id number] 10/03/2024 Eddieliza Casionan [address] [id number] 10/06/2024 Eddieliza Casionan Paroxysmal atrial fibrillation I48.0 ; Personal history of other venous thrombosis and embolism Z86.718 and 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 I87.[address] [id number] 10/17/2024 Eddieliza Casionan Chronic pain syndrome G89.4 ; Personal history of pulmonary embolism Z86.711 ; Personal history of other venous thrombosis and embolism Z86.718 ; Paroxysmal atrial fibrillation I48.0 ; retirement (current) use of anticoagulants Z79.01 and 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 I87.[address] [id number] 10/25/2024 Anurag Martinez Chronic pain syndrom e G89.[address] [id number] 11/03/2024 Eddieliza Casionan [address] [id number] 11/03/2024 Eddieliza Casionan [address] [id number] 11/07/2024 Eddieliza Casionan Chronic pain syndrome G89.[address] [id number] 11/20/2024 Eddieliza Casionan Chronic pain syndrome G89.[address] [id number] 11/28/2024 Eddieliza Casionan Chronic pain syndrome G89.4 and Paroxysmal atrial fibrillation I48.[address] [id number] 12/19/2024 Eddieliza Casionan Chronic pain syndrome G89.[address] [id number] 12/28/2024 Eddieliza Casionan [address] [id number] 12/28/2024 Eddieliza Casionan Assessments Encounter Date Diagnosis (ICD Code) Assessment Notes Treatment Notes Treatment Clinical Notes Section Notes 02/01/2024 Postthrombotic syndrome with other complications of [...] syndrome Explained that he cannot be on extermination 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 02/15/2024 Postthrombotic syndrome with other complications of [...] 11/28/2024 Chronic pain syndrome (ICD-10 - G89.4) 12/19/2024 Chronic pain syndrome (ICD-10 - G89.4) 02/01/2024 Personal history of other venous thrombosis [...] blood draw in our clinic or to [facility] while waiting for [facility] acceptance. 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 (ICD-10 - I87.093) 10/17/2024 Personal history of other venous thrombosis and embolism (ICD-10 - Z86.718) BLE DVT [address] 05/02/2024 Essential (primary) hypertension (ICD-10 - I10) BP stable 09/19/2024 Nicotine dependence, other tobacco product, uncomplicated (ICD-10 - F17.290) He reports stopping 10/17/2024 Paroxysmal atrial fibrillation (ICD-10 - I48.0) 05/02/2024 Mixed hyperlipidemia (ICD-10 - E78.2) will [...] agrees to take Tylenol if needed 10/17/2024 retirement (current) use of anticoagulants (ICD-10 - Z79.01) 10/17/2024 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 (ICD-10 - I87.093) 09/14/2024 Other 05/02/2024 Other 05/16/2024 Other Diagnostic labs [...] 06/01/2024 COMPREHENSIVE METABOLIC PANEL 09/19/2024 GLYCOHEMOGLOBIN PROFILE 08/04/2022 GLYCOHEMOGLOBIN PROFILE 05/02/2024 GLYCOHEMOGLOBIN PROFILE 09/19/2024 HIV 1 AND 2 ANTIBODY SCREEN 08/04/2022 LIPID PROFILE 08/04/2022 LIPID PROFILE 09/19/2024 LIPID PROFILE 05/02/2024 MEASLES PROFILE 08/04/2022 MAGNESIUM 08/04/2022 MAGNESIUM 05/02/2024 [...] Insured Coverage Start Date Coverage End Date [facility] [address] [place] [address] [id number] Rxhix Epifanio Rodgers Self - patient is [...]
--- NOTE | 2025-01-12 10:35 | MHC.OFFVISCO ---
Intake Intake Visit Reasons: Anticoagulation Allergies No Known Allergies Allergy (Verified 01/12/25 10:14) Medication List - Last Reconciled 01/12/25 by Sarah Larkin, RN acetaminophen 1,000 mg PO Q12H PRN furosemide 20 mg PO DAILY gabapentin 200 mg PO BID metformin 500 mg PO BID metoprolol tartrate 25 mg PO BID oxycodone 5 mg PO QID PRN rosuvastatin 5 mg PO DAILY warfarin 5 mg See Protocol PO DAILY Nursing Note INR: 5.8 out of therapeutic range of 2.5-3.5 Pt not sure why but admits to being under increased stress and also not eating greens. The weather is nicer so he is more active. These can all raise the INR. Pt refused venous draw for verification of INR. Medications and supplements reviewed Patient status: feels well Medications or supplements: no changes Diet: usual diet but no greens Denies any signs and symptoms of bleeding or clotting or unusual bruising Bleeding, bruising, clotting discussed. Pt will be more observant to blod in urine or stool. He understands if he hits his head, he should go to the ER for a Ct Scan to R/O bleed Nutritional guidance given: to have a serving of greens today and tomorrow. Dose: Pt already took 7.5mg today, will decrease tomorrow's dose to 5mg (10mg) then will decrease weekly total by 2.5mg and the weekly dosing will be 7.5mg X 6 days and 5mg X 1 day (Mon) F/U INR Date: 1 week 01/19/25?? Patient verbalizing understanding of instructions qwwith read back given. Call to PCP's office. Spoke to Felicita and reported critical INR with dosing plan and next retest date. Anti-Coag Initial Assessment Social Hx Patient Tobacco Use Status: Former Tobacco user (quit 1 year ago, uses vape 5% nicotine) Tobacco use type: Cigarette Smoking packs per day: 1 alcohol intake: former Alcohol intake frequency: does not drink Cardiovascular Hx: HTN, Arrhythmias (afib) and Varicose Veins Lung Disease HX: DVT/PE Endocrine Hx: Diabetes (borderline on oral agent) Cancer HX: No Psych. 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
[2025-01-12 11:02] LABS: ~PT, ~INR - Anti Coag Clinic 5.8 (0.9-1.1)
== END 2025-01-12 10:50 | disposition home or self-care (01) ==
LOC: HO.ACS 10:10
PROVIDERS: PCP Nurse Practitioner; Visit Provider Internal Medicine Medical Oncology
DX: Z79.01 Long term (current) use of anticoagulants (principal)

== ENCOUNTER → 2025-01-12 10:10 | Outpatient (BNVA) | payer OTHER, SELFPAY | PROVIDERS: PCP Nurse Practitioner; Visit Provider Internal Medicine Medical Oncology | DX: I48.0 Paroxysmal atrial fibrillation (principal); I87.093 Postthrombotic syndrome with other complications of bilateral lower extremity; Z86.718 Personal history of other venous thrombosis and embolism; Z79.01 Long term (current) use of anticoagulants; Z51.81 Encounter for therapeutic drug level monitoring | CPT/HCPCS: 85610; 99211 ==

== ENCOUNTER 2025-01-19 13:21 | Outpatient (AMB) | payer OTHER, SELFPAY ==
--- OUTSIDE RECORDS SUMMARY | 2025-01-19 13:24 | XMS_ITS ---
Author Organization [facility] Address [address] [place] [phone] Care Team Providers Care Track Patrol Name Role Phone Karin Randall Primary Care Provider [phone] REASON FOR VISIT refill Medications Medication SIG (Take, Route, Frequency, Duration) Notes Start Date End Date Status oxyCODONE 5 mg 1 tab(s) orally every 6 hours for 30 days As needed Partial Fill upon Patient Request 01/16/2025 Active Encounters Encounter Location Date Provider Diagnosis [address] [id number] 01/16/2025 Karin Randall Chronic pain syndrome G89.4 Assessments Encounter Date Diagnosis (ICD Code) Assessment Notes Treatment Notes Treatment Clinical Notes Section Notes 01/16/2025 Chronic pain syndrome (ICD-10 - G89.4) Plan Of Treatment Medication Medication Name Sig Start Date Stop Date Notes oxyCODONE 5 mg 1 tab(s) orally ever y 6 hours for 30 days 01/16/2025 Partial Fill upon Patient Request Progress Notes * Epifanio WALSH EDOB: [birth year] (44 yo M)Acc No.[id number]:01/16/2025 Patient:?Epifanio WALSH :1980???Age:44 Y???Sex:Male Address:[address] [place] [id number] * Refills? Refill oxyCODONE tablet, 5 mg, orally, 120, 1 tab(s), every 6 hours, 30 days, Refills=0 * true * Date:? Generated for Printi ng/Faxing/eTransmitting on:?01/19/2025 01:24 PM EDT
--- NOTE | 2025-01-19 13:59 | MHC.OFFVISCO ---
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 [place]. No diet changes that he can relate INR too- states when it is warmer weather he requires less warfarin and in colder months requires more warfarin. It was explained when it warm - blood vessels dilate more and in colder weather blood vessels constrict more Medications or supplements: states no change Diet: states he has been eating more greens Denies any signs and symptoms of bleeding or clotting or unusual bruising Bleeding, bruising, clotting discussed Nutritional guidance given: cont to eat greens weekly, avoid reds todday Dose: pt wants to go to 5mg daily due to weather change- he has had low INRs on current dose- will meet pt half way hold today then 5mg x 3 days/ 7.5mg x 4 days and recheck 1 week - he refused sooner appt F/U INR Date : 01/26/2025 Pt understands his INR is critically high and to go to the ER with any unusual bleeding or bruising or clotting or fall or injury or bump to his head Patient verbalizing understanding of instructions given. Anti-Coag Initial Assessment Social Hx Patient Tobacco Use Status: Former Tobacco user (quit 1 year ago, uses vape 5% nicotine) Tobacco use type: Cigarette Smoking packs per day: 1 alcohol intake: former Alcohol intake frequency: does not drink Cardiovascular Hx: HTN, Arrhythmias (afib) and Varicose Veins Lung Disease HX: DVT/PE Endocrine Hx: Diabetes (borderline on oral agent) Cancer HX: No Psych. 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
[2025-01-19 14:24] LABS: Prothrombin Time Whole Bld POC 81.5 sec (11.1-13.5); ~PT, ~INR - Anti Coag Clinic 6.8 (0.9-1.1)
== END 2025-01-19 14:13 | disposition home or self-care (01) ==
LOC: HO.ACS 13:21
PROVIDERS: PCP Nurse Practitioner; Visit Provider Internal Medicine Medical Oncology
DX: Z79.01 Long term (current) use of anticoagulants (principal)

== ENCOUNTER → 2025-01-19 13:21 | Outpatient (BNVA) | payer OTHER, SELFPAY | PROVIDERS: PCP Nurse Practitioner; Visit Provider Internal Medicine Medical Oncology | DX: I48.0 Paroxysmal atrial fibrillation (principal); I87.093 Postthrombotic syndrome with other complications of bilateral lower extremity; Z86.718 Personal history of other venous thrombosis and embolism; Z79.01 Long term (current) use of anticoagulants; Z51.81 Encounter for therapeutic drug level monitoring | CPT/HCPCS: 85610; 99212 ==

== ENCOUNTER 2025-01-26 14:11 | Outpatient (AMB) | payer OTHER, SELFPAY ==
--- OUTSIDE RECORDS SUMMARY | 2025-01-26 14:13 | XMS_ITS | Patient Health Record ---
Author Organization [facility] Address [address], [place] [id number] Care Team Providers Care Repair Table Operator Name Role Phone Hernan Manzano Primary Care Provider [facility], Nursing Unavailable [phone] Anurag Martinez Unavailable [phone] Allergies No Known Allergies Results Component Value Reference Range Notes INR Reviewed date:01/31/2024 03:38:55 PM Interpretation:3.7 Performing [...] date:05/17/2024 02:44:32 AM Interpretation:Low Performing Lab: Notes/Report: [employer], a member of [address] [address] Guest Service Aide - Kaylin Leon MD VITAMIN D, 25-HYDROXY [...] 7 mg coumadin Reason For Referral Reason [facility] . , [phone] Evaluate for chronic abdominal and bilateral leg pain Diagnosis 1 Chronic pain syndrom e (G89.4) Referral Organization [facility] Referring Provider First Name Hernan Referring Provider Last Name Tonia Referring Provider Speciality Nurse Prac titioner General Notes may attach latest OV Nicole almendarez Katelyn 05/16/2024 03:26:52 PM > referral refaxedDarrell Paris 09/04/2024 09:32:52 AM > pt. attended, notes requestedDarrell Paris 09/04/2024 11:53:07 AM > pt. attended, notes to scan Referral Priority Routine Referral Appointment Date 05/25/2024 [facility] er, Anticoagulation Service, [address] [facility] [address] P: [phone] F: [phone] On Coumadin for history of PE, DVT, Paroxysmal Afib and Unstable chest pain. 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) Referral Organization [facility] Referring Provider First Name Hernan Referring Provider Last Name Tonia Referring Provider Speciality Nurse Funmilayo Norman Notes Felicita Ramírez 05/2025 11:16:59 AM > Called anticoagulation clinic awaiting a call back for location and fax number for referralDarrell Paris 10/10/2024 08:42:07 AM > [facility] [place], [facility] 11/13/2024 02:48:31 PM >appointment scheduled pt notified, Shawanda Rivera 01/23/2025 03:35:47 PM > pt is seen routinely and dosing is managed through them - last note requested Referral Priority Routine Referral Appointment Date 11/17/2024 Medications Medication SIG (Take, Route, Frequency, Duration) Notes Start Date End Date Status Enoxaparin Sodium 150 mg/mL as directed subcutaneously every 12 hours for 3 days 11/03/2024 Active oxyCODONE 5 mg 1 tab(s) orally every 6 hours for 30 days As needed Partial Fill upon Patient Request 01/16/2025 Active Metoprolol Tartrate 25 mg TAKE ONE [...] day for 90 days Pls deliver to Cyrba 01/12/2023 Active metFORMIN 500 mg 1 tab(s) [...] (20 or more) IM Intramuscular 08/18/2021 Administered [facility] [id number] Moderna Covid-19 Vaccine Administration - First Dose (Single Dose 100MCG/0.5ML 1ST) Unknown 11/01/2020 Administered Moderna Covid-19 Vaccine Administration - Second Dose (Single Dose 100 MCG/0.5ML 2ND) Unknown 12/19/2020 Administered Hepatitis B (20 or more) IM Intramuscular 09/16/2023 Administered [facility] [id number] Social History Tobacco Use Assessment MU Question Answer Notes What is your current smoking status? Vaping only Problems Problem Type SNOMED Code ICD Code Onset Dates Problem Status W/U Status Risk Notes Problem Morbid obesity (disorder) (737991774) Morbid (severe) obesity due to excess calories (E66.01) Active confirmed Problem Obesity (833960686) Obesity, unspecified (E66.9) Active confirmed Problem Mixed hyperlipidemia (622613928) Mixed hyperlipidemia (E78.2) Active confirmed Problem Alcohol abuse (47232737) Alcohol abuse, uncomplicated (F10.10) Active confirmed Problem Tobacco user (290143540) Nicotine dependence, cigarettes, uncomplicated (F17.210) Active confirmed Problem Tobacco user (420577357) Nicotine dependence, other tobacco product, uncomplicated (F17.290) Active confirmed Problem Anxiety disorder (850415630) Anxiety disorder, unspecified (F41.9) Active confirmed Problem Chronic pain syndrome (788759213) Chronic pain syndrome (G89.4) Active confirmed Problem Essential hypertension (50889490) Essential (primary) hypertension (I10) Active confirmed Problem Angina pectoris (060815142) Angina pectoris, unspecified (I20.9) Active confirmed Problem Paroxysmal atrial fibrillation (266396248) Paroxysmal atrial fibrillation (I48.0) Active confirmed Problem 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) Active confirmed Problem Onycholysis (60999982) Onycholysis (L60.1) Active confirmed Problem Pain of right knee region (finding) (501377595726043) Pain in right knee (M25.561) Active confirmed Problem Long-term current use of anticoagulant (210022343) half-way (current) use of anticoagulants (Z79.01) Active confirmed Problem History of pulmonary embolus (594695310) Personal history of pulmonary embolism (Z86.711) Active confirmed Problem History of thromboembolism of vein (794829734) Personal history of other venous thrombosis and embolism (Z86.718) Active confirmed BLE DVT [address] Problem Obsessive-compulsi ve disorder (982070156) Obsessive-compuls jose m disorder, unspecified (F42.9) Active confirmed Problem Prediabetes (210239688) Prediabetes (R73.03) Active confirmed A1c 5.9% 06/04/21 Problem Body mass index 40+ - severely obese (519919920) Body mass index [BMI] 45.0-49.9, adult (Z68.42) Active confirmed Problem Sheltered homelessness (018104679240767) Sheltered homelessness (Z59.01) Active confirmed Problem 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 Dx Problem Hyperlipidemia (97666641) Hyperlipidemia, unspecified (E78.5) 021 Inactive confirmed 102/112 /44/138 06/04/20 21 Problem Insomnia (332735843) Insomnia, unspecified (G47.00) Inactive confirmed Problem Body mass index 40+ - severely obese (860802147) Body mass index [BMI] 40.0-44.9, adult (Z68.41) Inactive confirmed Vital Signs Temperature 98.1 degrees Fahrenheit 09/19/2024 Blood pressure diastolic 96 09/19/2024 Oximetry 97 09/19/2024 Height 68.5 in 09/19/2024 Blood pressure systolic 145 09/19/2024 Weight 320 lbs 09/19/2024 BMI 47.94 kg/m2 09/19/2024 Encounters Encounter Location Date Provider Diagnosis [address] [id number] 02/01/2024 Eddieliza Casionan 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 I87.093 and Personal history of other venous thrombosis and embolism Z86.718 [facility] [address] [place] [address] [place] [id number] 02/24/2024 Eddieliza Casionan COVID-19 U07.1 [facility] [address] [place] [address] [place], [place] [id number] 03/06/2024 Eddieliza Casionan 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 I87.[address] [id number] 05/02/2024 Eddieliza Casionan Chronic pain syndrome G89.4 ; Body mass index [BMI] 45.0-49.9, adult Z68.42 ; Encounter for screening for COVID-19 Z11.52 ; Prediabetes R73.03 ; Essential (primary) hypertension I10 and Mixed hyperlipidemia E78.[address] [id number] 05/16/2024 [facility] [address] [place] [address] [place], [place] [id number] 06/01/2024 Eddieliza Casionan Chronic pain syndrome G89.[address] [id number] 09/19/2024 Eddieliza Casionan Encounter for screening for COVID-19 Z11.52 ; Chronic pain syndrome G89.4 ; Prediabetes R73.03 ; Paroxysmal atrial fibrillation I48.0 ; Nicotine dependence, other tobacco product, uncomplicated F17.290 and Personal history of other venous thrombosis and embolism Z86.[address] [id number] 01/31/2024 Eddieliza Casionan [address] [id number] 02/15/2024 Eddieliza Casionan 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 I87.[address] [id number] 02/21/2024 Eddieliza Casionan [address] [id number] 02/24/2024 Eddieliza Casionan [address] [id number] 03/06/2024 Eddieliza Casionan [address] [id number] 03/10/2024 Eddieliza Casionan 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 I87.[address] [id number] 03/13/2024 Eddieliza Casionan [address] [id number] 03/16/2024 Eddieliza Casionan [address] [id number] 03/27/2024 Eddieliza Casionan 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 I87.[address] [id number] 03/30/2024 Eddieliza Casionan [address] [id number] 04/27/2024 Eddieliza Casionan 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 I87.[address] [id number] 04/29/2024 Eddieliza Casionan [address] [id number] 05/11/2024 Eddieliza Casionan Chronic pain syndrome G89.[address] [id number] 05/19/2024 Eddieliza Casionan [address] [id number] 05/23/2024 Eddieliza Casionan [address] [id number] 05/28/2024 Eddieliza Casionan Chronic pain syndrome G89.[address] [id number] 05/30/2024 Eddieliza Casionan Chronic pain syndrome G89.4 and Mixed hyperlipidemia E78.[address] [id number] 06/16/2024 Eddieliza Casionan [address] [id number] 06/16/2024 Eddieliza Casionan Chronic pain syndrome G89.[address] [id number] 06/29/2024 Eddieliza Casionan Chronic pain syndrome G89.[address] [id number] 07/25/2024 Eddieliza Casionan [address] [id number] 07/25/2024 Eddieliza Casionan Chronic pain syndrome G89.[address] [id number] 07/31/2024 Eddieliza Casionan [address] [id number] 08/04/2024 Eddieliza Casionan [address] [id number] 08/07/2024 Eddieliza Casionan [address] [id number] 08/24/2024 Eddieliza Casionan Chronic pain syndrome G89.[address] [id number] 10/03/2024 Eddieliza Casionan [address] [id number] 10/06/2024 Eddieliza Casionan Paroxysmal atrial fibrillation I48.0 ; Personal history of other venous thrombosis and embolism Z86.718 and 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 I87.[address] [id number] 10/17/2024 Eddieliza Casionan Chronic pain syndrome G89.4 ; Personal history of pulmonary embolism Z86.711 ; Personal history of other venous thrombosis and embolism Z86.718 ; Paroxysmal atrial fibrillation I48.0 ; rn long term care (current) use of anticoagulants Z79.01 and 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 I87.[address] [id number] 10/25/2024 Anurag Martinez Chronic pain syndrom e G89.[address] [id number] 11/03/2024 Eddieliza Casionan [address] [id number] 11/03/2024 Eddieliza Casionan [address] [id number] 11/07/2024 Eddieliza Casionan Chronic pain syndrome G89.[address] [id number] 11/20/2024 Eddieliza Casionan Chronic pain syndrome G89.[address] [id number] 11/28/2024 Eddieliza Casionan Chronic pain syndrome G89.4 and Paroxysmal atrial fibrillation I48.[address] [id number] 12/19/2024 Eddieliza Casionan Chronic pain syndrome G89.[address] [id number] 12/28/2024 Eddieliza Casionan [address] [id number] 12/28/2024 Eddieliza Casionan [address] [id number] 01/12/2025 Eddieliza Casionan [address] [id number] 01/16/2025 Eddieliza Casionan Chronic pain syndrome G89.[address] [id number] 01/19/2025 Eddieliza Casionan Assessments Encounter Date Diagnosis (ICD [...] syndrome Explained that he cannot be on continuous churn buttermaker oxycodone, unless other options as advised by [...] 12/19/2024 Chronic pain syndrome (ICD-10 - G89.4) 01/16/2025 Chronic pain syndrome (ICD-10 - G89.4) 02/01/2024 [...] blood draw in our clinic or to [facility] while waiting for [facility] acceptance. Offered lab draw today while we are at [facility] he declined 11/28/2024 Paroxysmal atrial fibrillation [...] agrees to take Tylenol if needed 10/17/2024 half-way (current) use of anticoagulants (ICD-10 - Z79.01) [...] Insured Coverage Start Date Coverage End Date [facility] [address] [place] [address] [id number] [employer] Epifanio Rodgers Self - patient is [...]
[2025-01-26 14:34] LABS: Prothrombin Time Whole Bld POC 17.4 sec (11.1-13.5); ~PT, ~INR - Anti Coag Clinic 1.4 (0.9-1.1)
--- NOTE | 2025-01-26 16:49 | MHC.OFFVISCO ---
Intake Intake Visit Reasons: Anticoagulation Allergies No Known Allergies Allergy (Verified 01/19/25 13:25) Medication List - Last Reconciled 01/26/25 by Ashley Estrada, RN acetaminophen 1,000 mg PO Q12H PRN furosemide 20 mg PO DAILY gabapentin 200 mg PO BID metformin 500 mg PO BID metoprolol tartrate 25 mg PO BID oxycodone 5 mg PO QID PRN rosuvastatin 5 mg PO DAILY warfarin 5 mg See Protocol PO DAILY Nursing Note previous INR 6.8 - pt held warfarin x 2 days and ove compensated on greens eating mass quantaties INR 1.4 out of therapeutic range Medications and supplements reviewed Patient status: is asymptomatic of any bleeding or clotting- Medications or supplements: states no changes Diet: over compensates to manage warfarin Denies any signs and symptoms of bleeding or clotting or unusual bruising Bleeding, bruising, clotting discussed Nutritional guidance given: avoid greens x 3 days then only have greens 2 days/ week have 1 serving of orange and reds today and tomorrow - then resume usual diet Dose: 5mg mwf/ 7.5mg x 4 days F/U INR Date : 1 week - pt refuses sooner appt and can only come x 1 day /week due to works schedule and co-pays?? Patient verbalizing understanding of instructions given. t/c to PCP office - left msg on triage line Anti-Coag Initial Assessment Social Hx Patient Tobacco Use Status: Former Tobacco user (quit 1 year ago, uses vape 5% nicotine) Tobacco use type: Cigarette Smoking packs per day: 1 alcohol intake: former Alcohol intake frequency: does not drink Cardiovascular Hx: HTN, Arrhythmias (afib) and Varicose Veins Lung Disease HX: DVT/PE Endocrine Hx: Diabetes (borderline on oral agent) Cancer HX: No Psych. Illness/Depression: No Coding Level of Care Code Est Patient Level 1 Diagnoses Current use of anticoagulant therapy Z79.01 Assessment & Plan Assessment & Plan (1) Current use of anticoagulant therapy: Code(s): Z79.01 - [facility] (current) use of anticoagulants Category: Medical
== END 2025-01-26 16:54 | disposition home or self-care (01) ==
LOC: HO.ACS 14:11
PROVIDERS: PCP Nurse Practitioner; Visit Provider Internal Medicine Medical Oncology
DX: Z79.01 Long term (current) use of anticoagulants (principal)

== ENCOUNTER → 2025-01-26 14:11 | Outpatient (BNVA) | payer OTHER, SELFPAY | PROVIDERS: PCP Nurse Practitioner; Visit Provider Internal Medicine Medical Oncology | DX: I48.0 Paroxysmal atrial fibrillation (principal); I87.093 Postthrombotic syndrome with other complications of bilateral lower extremity; Z86.718 Personal history of other venous thrombosis and embolism; Z79.01 Long term (current) use of anticoagulants; Z51.81 Encounter for therapeutic drug level monitoring | CPT/HCPCS: 85610; 99211 ==

== ENCOUNTER 2025-01-31 19:40 | Emergency (ER) | payer OTHER, SELFPAY ==
--- NOTE | ~2025-01-31 | XR_ITS ---
CLINICAL HISTORY: SOB 2 view chest x-ray Comparison: None Findings: Lungs are clear without acute infiltrates. No pneumothorax. Heart size normal. No acute bony abnormalities. Impression: No acute processes This document has been electronically signed by: Yuniel Burnett MD on 01/31/2025 20:28:23
--- NOTE | 2025-01-31 19:59 | ED.GENADULT ---
HPI - General Adult General Chief complaint: General Medical Stated complaint: ?blood clot in throat Related Data Home Medications ?Medication ?Instructions ?Recorded ?Confirmed metformin 500 mg tablet 500 mg PO BID 05/25/24 01/26/25 acetaminophen 500 mg tablet 1,000 mg PO Q12H PRN 05/26/24 01/26/25 furosemide 20 mg tablet 20 mg PO DAILY 05/26/24 01/26/25 gabapentin 100 mg capsule 200 mg PO BID 05/26/24 01/26/25 metoprolol tartrate 25 mg tablet 25 mg PO BID 05/26/24 01/26/25 warfarin 5 mg tablet 5 mg PO DAILY 05/26/24 01/26/25 rosuvastatin 5 mg tablet 5 mg PO DAILY 10/27/24 01/26/25 oxycodone 5 mg tablet 5 mg PO QID PRN 11/17/24 01/26/25 Allergies Allergy/AdvReac Type Severity Reaction Status Date / Time No Known Allergies Allergy Verified 01/31/25 20:06 [facility] Past Medical History Medical History (Updated 02/01/25 @ 09:22 by QUEENIE Schuler) Pulmonary embolism DVT (deep venous thrombosis) History of DVT of lower extremity History of alcohol abuse Post-thrombotic syndrome PAF (paroxysmal atrial fibrillation) OCD (obsessive compulsive disorder) Prediabetes Hypertension Mixed hyperlipidemia Chronic pain syndrome Surgical History (Updated 05/26/24 @ 08:33 by JANNETH Robb) History of thrombectomy History of vascular surgery (~12/2023) Social History Social History Housing: Apartment Alcohol intake: former Patient Tobacco Use Status: Former Tobacco user (quit 1 year ago, uses vape 5% nicotine) Tobacco use type: Cigarette Cigarette Packs Per Day: 1 e-Cigarette/Vaping Use: Currently Using Advance Directives: No Advance Directives Information Provided: No Do you have a plan to hurt others: No Plan Current occupational exposures/hazards: No Physical Exam ED Vital Signs: Vital Signs - 24 hr 01/31/25 20:02 Temperature 97.0 F Pulse Rate 118 H Respiratory Rate 20 Blood Pressure 144/102 H Pulse Oximetry 98 Oxygen Delivery Method Room Air BMI result Body Mass Index 46.5 Course Course Course Narrative: 01/31/251958 QUEENIE Schuler This is a Rapid Medical Examination (RME) performed by Car Maddox PA-C in triage. Full HPI, ROS, assessment and treatment plan per primary provider in the Main ED. Hx: 44 yo M hx etoh use disorder, DVT and PE on coumadin here for eval of SOB which began today. no chest pain. also reports severe pain to LLQ with associated diarrhea, dysuria. reports consuming etoh today to deal with the pain. previously in remission x4 yrs. PE/vitals: hypertensive, tachycardic Plan: labs, UA, CXR Reevaluation(s) Reevaluation #1: Patient left the emergency department before myself or any of the other clinicians could review or explain physical exam findings, test results, need or lack there of for additional testing, treatment options, or a treatment plan. Medical Decision Making Lab Data 01/31/25 20:16 01/31/25 20:16 Labs: Lab Results 01/31/25 Range/Units 20:16 WBC 8.0 (4.8-10.8) X10*3/uL RBC 4.74 (4.60-5.80) X10*6/uL Hgb 14.8 (14.0-18.0) g/dl Hct 41.5 L (42.0-52.0) % MCV 87.6 (80.0-98.0) fL MCH 31.2 (27.0-33.0) pg MCHC 35.7 (31.0-36.0) g/dl RDW 13.9 (11.0-16.0) % Plt Count 219 (160-400) X10*3/uL MPV 9.2 L (9.4-12.4) fL Immature Gran % (Auto) 0.5 H (0.0-0.4) % Neut % (Auto) 58.7 (45-73) % Lymph % (Auto) 31.8 (20-40) % [place] % (Auto) 7.1 (2-11) % Eos % (Auto) 1.2 (0-4) % Baso % (Auto) 0.7 (0-2) % Lymph # (Auto) 2.6 (1.2-4.9) X10*3/uL [place] # (Auto) 0.6 (0.1-1.2) X10*3/uL Eos # (Auto) 0.1 (0.0-0.4) X10*3/uL Baso # (Auto) 0.1 (0.0-0.2) X10*3/uL Abs Immat Gran (auto) 0.04 H (0.00-0.03) X10*3/uL Absolute Neuts (auto) 4.7 (2.0-8.3) x10*3/uL Absolute Nucleated RBC 0.000 (0.0-0.012) X10*3/uL Nucleated RBC % (auto) 0.0 (0.0-0.2) /100WBC Sodium 146 H (135-145) mmol/L Potassium 3.3 (3.3-5.1) mmol/L Chloride 111 H (96-108) mmol/L Carbon Dioxide 22 (22-29) mmol/L Anion Gap 16 (12-20) BUN 10 (9-16) mg/dL Creatinine 0.85 (0.5-1.4) mg/dL Estim Creat Clear Calc 156.1 Estimated GFR > 60 Random Glucose 108 (60-115) mg/dL Calcium 8.9 (8.4-10.2) mg/dL Magnesium 1.7 (1.6-2.6) mg/dL Total Bilirubin 0.3 (0.0-1.0) mg/dL AST 58 H (5-37) U/L ALT 22 (0-40) U/L Alkaline Phosphatase 59 (39-117) U/L Troponin I High Sens < 2.7 (<3.5-35.0) ng/L Total Protein 8.0 (6.5-8.0) g/dL Albumin 4.9 (3.5-5.0) g/dL Discharge Plan Discharge Clinical Impression: Shortness of breath Patient Disposition: Left W/O Completing Treatment Prescriptions: No Action rosuvastatin 5 mg tablet 5 mg PO DAILY oxycodone 5 mg tablet 5 mg PO QID PRN metformin 500 mg tablet 500 mg PO BID metoprolol tartrate 25 mg tablet 25 mg PO BID furosemide 20 mg tablet 20 mg PO DAILY gabapentin 100 mg capsule 200 mg PO BID acetaminophen 500 mg tablet 1,000 mg PO Q12H PRN warfarin 5 mg tablet 5 mg PO DAILY Protocol: Dose Management Condition: Wednesday (Week One) Dose/Route: 5 mg Instruction: 1 x 5 mg tablet Condition: Wednesday Dose/Route: 7.5 mg Instruction: 1.5 x 5 mg tablets Condition: Wednesday Dose/Route: 7.5 mg Instruction: 1.5 x 5 mg tablets Condition: Wednesday Dose/Route: 5 mg Instruction: 1 x 5 mg tablet Condition: Dose/Route: 7.5 mg Instruction: 1.5 x 5 mg tablets Condition: Wednesday Dose/Route: 5 mg Instruction: 1 x 5 mg tablet Condition: Wednesday Dose/Route: 7.5 mg Instruction: 1.5 x 5 mg tablets Condition: Wednesday ( Two) Dose/Route: 7.5 mg Instruction: 1.5 x 5 mg tablets Condition: Wednesday Dose/Route: 5 mg Instruction: 1 x 5 mg tablet Condition: Wednesday Dose/Route: 7.5 mg Instruction: 1.5 x 5 mg tablets Condition: Wednesday Dose/Route: 5 mg Instruction: 1 x 5 mg tablet Condition: Dose/Route: 7.5 mg Instruction: 1.5 x 5 mg tablets Condition: Wednesday Dose/Route: 5 mg Instruction: 1 x 5 mg tablet Condition: Wednesday Dose/Route: 7.5 mg Instruction: 1.5 x 5 mg tablets Protocol Text: Adjustment Start Date: Wednesday01/26/25 INR Value: 1.4 INR Date: 01/26/25 Recheck Date: 02/02/25 Additional Instructions: AVOID GREENS X 3 DAYS, THEN HAVE GREENS X 2 SERVINGS / WEEK, EAT A SERVING OF ORANGE AND REDS TODAY AND TOMORROW THEN RESUME USUAL DIET Discharge Date/Time: 01/31/25 23:04
[2025-01-31 20:02] VITALS: BP 144/102; PULSE 118; RESP 20; TEMP 36.1; O2SAT 98; BMI 46.5
[2025-01-31 20:19] LABS: MANUAL DIFF FLAG NO
[2025-01-31 20:23] LABS: Basophils Absolute Auto 0.1 X10*3/uL (0.0-0.2); Basophils Percent Auto 0.7 % (0-2); Eosinophils Absolute Auto 0.1 X10*3/uL (0.0-0.4); Eosinophils Percent Auto 1.2 % (0-4); Hematocrit 41.5 % (42.0-52.0); Hemoglobin 14.8 g/dl (14.0-18.0); Imm Gran Abs Auto 0.04 X10*3/uL (0.00-0.03); Imm Gran Pct Auto 0.5 % (0.0-0.4); Lymphocytes Absolute Auto 2.6 X10*3/uL (1.2-4.9); Lymphocytes Percent Auto 31.8 % (20-40); Mean Corpuscular HGB Conc 35.7 g/dl (31.0-36.0); Mean Corpuscular Hemoglobin 31.2 pg (27.0-33.0); Mean Corpuscular Volume 87.6 fL (80.0-98.0); Mean Platelet Volume 9.2 fL (9.4-12.4); Monocytes Absolute Auto 0.6 X10*3/uL (0.1-1.2); Monocytes Percent Auto 7.1 % (2-11); Neutrophils Absolute Auto 4.7 x10*3/uL (2.0-8.3); Neutrophils Percent Auto 58.7 % (45-73); Platelet Count 219 X10*3/uL (160-400); Red Blood Count 4.74 X10*6/uL (4.60-5.80); Red Cell Distribution Width 13.9 % (11.0-16.0)
[2025-01-31 20:35] LABS: Alanine Aminotransferase 22 U/L (0-40); Albumin Level 4.9 g/dL (3.5-5.0); Alkaline Phosphatase 59 U/L (39-117); Anion Gap 16 (12-20); Aspartate Amino Transferase 58 U/L (5-37); Bilirubin Total 0.3 mg/dL (0.0-1.0); Blood Urea Nitrogen 10 mg/dL (9-16); Calcium 8.9 mg/dL (8.4-10.2); Carbon Dioxide 22 mmol/L (22-29); Chloride 111 mmol/L (96-108); Creatinine Clr Calc Pharmacy 156.1; Estimated Glomerular Filt Rate > 60; Glucose Random 108 mg/dL (60-115); Magnesium 1.7 mg/dL (1.6-2.6); Potassium 3.3 mmol/L (3.3-5.1); Sodium 146 mmol/L (135-145)
[2025-01-31 20:43] LABS: Troponin-I High Sensitivity < 2.7 ng/L (<3.5-35.0)
--- NOTE | 2025-01-31 21:49 | MHC.EDTECH ---
pt called at 2045 and 2108, 2148, no response
--- OUTSIDE RECORDS SUMMARY | 2025-01-31 22:57 | XMS_ITS | Patient Health Record ---
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 , [phone] Evaluate for chronic abdominal and bilateral leg pain Diagnosis 1 Chronic pain syndrom e (G89.4) Referral Organization [facility] Referring Provider First Name Hernan Referring Provider Last Name Tonia Referring Provider Speciality Nurse Prac titioner General Notes may attach latest OV note, Shawanda Rivera 05/16/2024 03:26:52 PM > referral refaxedDarrell Paris 09/04/2024 09:32:52 AM > pt. attended, notes requestedDarrell Paris 09/04/2024 11:53:07 AM > pt. attended, notes to scan Referral Priority Routine Referral Appointment Date 05/25/2024 [facility] er, Anticoagulation Service, [address] [facility] [address] P: [phone] F: [phone] On Coumadin for history of PE, DVT, Paroxysmal Afib and Unstable chest pain. 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) Referral Organization [facility] Referring Provider First Name Hernan Referring Provider Last Name Tonia Referring Provider Speciality Nurse Prac forest General Notes Felicita Ramírez 05/2025 11:16:59 AM > Called anticoagulation clinic awaiting a call back for location and fax number for referral, Felicita Ramírez 10/10/2024 08:42:07 AM > [facility] does not accept outside patients, [facility] 11/13/2024 02:48:31 PM >appointment scheduled pt [...] day for 90 days Pls deliver to [place] 01/12/2023 Active metFORMIN 500 mg 1 tab(s) [...] (20 or more) IM Intramuscular 08/18/2021 Administered [facility] [phone] Moderna Covid-19 Vaccine Administration - First Dose (Single Dose 100MCG/0.5ML 1ST) Unknown 11/01/2020 Administered Moderna Covid-19 Vaccine Administration - Second Dose (Single Dose 100 MCG/0.5ML 2ND) Unknown 12/19/2020 Administered Hepatitis B (20 or more) IM Intramuscular 09/16/2023 Administered [facility] [id number] Social History Tobacco Use Assessment MU Question Answer Notes What is your current smoking status? Vaping only Problems Problem Type SNOMED Code ICD Code Onset Dates Problem Status W/U Status Risk Notes Problem Morbid obesity (disorder) (471932205) Morbid (severe) obesity due to excess calories (E66.01) Active confirmed Problem Obesity (537692109) Obesity, unspecified (E66.9) Active confirmed Problem Mixed hyperlipidemia (822603159) Mixed hyperlipidemia (E78.2) Active confirmed Problem Alcohol abuse (83047268) Alcohol abuse, uncomplicated (F10.10) Active confirmed Problem Tobacco user (009244117) Nicotine dependence, cigarettes, uncomplicated (F17.210) Active confirmed Problem Tobacco user (790603826) Nicotine dependence, other tobacco product, uncomplicated (F17.290) Active confirmed Problem Anxiety disorder (585522667) Anxiety disorder, unspecified (F41.9) Active confirmed Problem Chronic pain syndrome (339540263) Chronic pain syndrome (G89.4) Active confirmed Problem Essential hypertension (84743257) Essential (primary) hypertension (I10) Active confirmed Problem Angina pectoris (455913430) Angina pectoris, unspecified (I20.9) Active confirmed Problem Paroxysmal atrial fibrillation (507427408) Paroxysmal atrial fibrillation (I48.0) Active confirmed Problem 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) Active confirmed Problem Onycholysis (17988243) Onycholysis (L60.1) Active confirmed Problem Pain of right knee region (finding) (127508640535034) Pain in right knee (M25.561) Active confirmed Problem Long-term current use of anticoagulant (838116897) [facility] (current) use of anticoagulants (Z79.01) Active confirmed Problem History of pulmonary embolus (802409743) Personal history of pulmonary embolism (Z86.711) Active confirmed Problem History of thromboembolism of vein (850188811) Personal history of other venous thrombosis and embolism (Z86.718) Active confirmed BLE DVT [address] Problem Obsessive-compulsi ve disorder (291602481) Obsessive-compuls jose m disorder, unspecified (F42.9) Active confirmed Problem Prediabetes (612262066) Prediabetes (R73.03) 021 Active confirmed A1c 5.9% 06/04/21 Problem Body mass index 40+ - severely obese (573588782) Body mass index [BMI] 45.0-49.9, adult (Z68.42) Active confirmed Problem Sheltered homelessness (599224048759068) Sheltered homelessness (Z59.01) Active confirmed Problem 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 Dx Problem Hyperlipidemia (50133115) Hyperlipidemia, unspecified (E78.5) 021 Inactive confirmed 102/112 /44/138 06/04/20 21 Problem Insomnia (795766039) Insomnia, unspecified (G47.00) Inactive confirmed Problem Body mass index 40+ - severely obese (983228440) Body mass index [BMI] 40.0-44.9, adult (Z68.41) Inactive confirmed Vital Signs Temperature 98.1 degrees Fahrenheit 09/19/2024 Blood pressure diastolic 96 09/19/2024 Oximetry 97 09/19/2024 Height 68.5 in 09/19/2024 Blood pressure systolic 145 09/19/2024 Weight 320 lbs 09/19/2024 BMI 47.94 kg/m2 09/19/2024 Encounters Encounter Location Date Provider Diagnosis [address] [id number] 02/01/2024 Eddieliza Casionan 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 I87.093 and Personal history of other venous thrombosis and embolism Z86.718 [facility] [address] [place] [address] [place], [place] [id number] 02/24/2024 Eddieliza Casionan COVID-19 U07.1 [facility] [address] [place] [address] [place], [place] [id number] 03/06/2024 Eddieliza Casionan 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 I87.[address] [id number] 05/02/2024 Eddieliza Casionan Chronic pain syndrome G89.4 ; Body mass index [BMI] 45.0-49.9, adult Z68.42 ; Encounter for screening for COVID-19 Z11.52 ; Prediabetes R73.03 ; Essential (primary) hypertension I10 and Mixed hyperlipidemia E78.[address] [id number] 05/16/2024 Nursing [facility] [address] [place] [address] [place], [place] [id number] 06/01/2024 Eddieliza Casionan Chronic pain syndrome G89.[address] [id number] 09/19/2024 Eddieliza Casionan Encounter for screening for COVID-19 Z11.52 ; Chronic pain syndrome G89.4 ; Prediabetes R73.03 ; Paroxysmal atrial fibrillation I48.0 ; Nicotine dependence, other tobacco product, uncomplicated F17.290 and Personal history of other venous thrombosis and embolism Z86.[address] [id number] 02/15/2024 Eddieliza Casionan 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 I87.[address] [id number] 02/21/2024 Eddieliza Casionan [address] [id number] 02/24/2024 Eddieliza Casionan [address] [id number] 03/06/2024 Eddieliza Casionan [address] [id number] 03/10/2024 Eddieliza Casionan 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 I87.[address] [id number] 03/13/2024 Eddieliza Casionan [address] [id number] 03/16/2024 Eddieliza Casionan [address] [id number] 03/27/2024 Eddieliza Casionan 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 I87.[address] [id number] 03/30/2024 Eddieliza Casionan [address] [id number] 04/27/2024 Eddieliza Casionan 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 I87.[address] [id number] 04/29/2024 Eddieliza Casionan [address] [id number] 05/11/2024 Eddieliza Casionan Chronic pain syndrome G89.[address] [id number] 05/19/2024 Eddieliza Casionan [address] [id number] 05/23/2024 Eddieliza Casionan [address] [id number] 05/28/2024 Eddieliza Casionan Chronic pain syndrome G89.[address] [id number] 05/30/2024 Eddieliza Casionan Chronic pain syndrome G89.4 and Mixed hyperlipidemia E78.[address] [id number] 06/16/2024 Eddieliza Casionan [facility] [address] [place] [id number] 06/16/2024 Eddieliza Casionan Chronic pain syndrome G89.[address] [id number] 06/29/2024 Eddieliza Casionan Chronic pain syndrome G89.[address] [id number] 07/25/2024 Eddieliza Casionan [address] [id number] 07/25/2024 Eddieliza Casionan Chronic pain syndrome G89.[address] [id number] 07/31/2024 Eddieliza Casionan [address] [id number] 08/04/2024 Eddieliza Casionan [address] [id number] 08/07/2024 Eddieliza Casionan [address] [id number] 08/24/2024 Eddieliza Casionan Chronic pain syndrome G89.[address] [id number] 10/03/2024 Eddieliza Casionan [address] [id number] 10/06/2024 Eddieliza Casionan Paroxysmal atrial fibrillation I48.0 ; Personal history of other venous thrombosis and embolism Z86.718 and 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 I87.[address] [id number] 10/17/2024 Eddieliza Casionan Chronic pain syndrome G89.4 ; Personal history of pulmonary embolism Z86.711 ; Personal history of other venous thrombosis and embolism Z86.718 ; Paroxysmal atrial fibrillation I48.0 ; 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 and 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 I87.[address] [id number] 10/25/2024 Anurag Martinez Chronic pain syndrom e G89.[address] [place] [id number] 11/03/2024 Eddieliza Casionan [address] [id number] 11/03/2024 Eddieliza Casionan [address] [id number] 11/07/2024 Eddieliza Casionan Chronic pain syndrome G89.[address] [id number] 11/20/2024 Eddieliza Casionan Chronic pain syndrome G89.[address] [id number] 11/28/2024 Eddieliza Casionan Chronic pain syndrome G89.4 and Paroxysmal atrial fibrillation I48.[address] [id number] 12/19/2024 Eddieliza Casionan Chronic pain syndrome G89.[address] [id number] 12/28/2024 Eddieliza Casionan [address] [id number] 12/28/2024 Eddieliza Casionan [address] [id number] 01/12/2025 Eddieliza Casionan [address] [id number] 01/16/2025 Eddieliza Casionan Chronic pain syndrome G89.[address] [id number] 01/19/2025 Eddieliza Casionan [address] [id number] 01/29/2025 Eddieliza Casionan Assessments Encounter Date Diagnosis (ICD [...] syndrome 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 that 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, unless other options as advised by [...] lab draw today while we are at [facility] he declined 11/28/2024 Paroxysmal atrial fibrillation [...] agrees to take Tylenol if needed 10/17/2024 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
== END 2025-01-31 23:04 | disposition left against medical advice (07) ==
LOC: HO.ED 22:55
PROVIDERS: Physician Assistant Medical; Emergency Provider Emergency Medicine; PCP Nurse Practitioner
DX: R06.02 Shortness of breath (principal); I10 Essential (primary) hypertension; I48.91 Unspecified atrial fibrillation; E78.2 Mixed hyperlipidemia
CPT/HCPCS: 36415; 71046; 80053; 83735; 84484; 85025; 99281; 99283

== ENCOUNTER → 2025-01-31 19:59 | Outpatient (BNV) | payer OTHER, SELFPAY | PROVIDERS: PCP Nurse Practitioner; Visit Provider Radiology Diagnostic Radiology | DX: R06.02 Shortness of breath (principal) | CPT/HCPCS: 71046 ==

== ENCOUNTER 2025-02-01 20:03 | Inpatient (IN) | payer OTHER, SELFPAY ==
--- NOTE | 2025-02-01 20:15 | ED_ITS ---
HPI - General Adult General Chief complaint: General Medical Stated complaint: clot in throat; detox ETOH Time Seen by Provider: 02/01/25 21:43 Source: patient Mode of arrival: ambulatory Limitations: no limitations History of Present Illness ED Provider: HPI narrative: Patient is 44 years old with history of depression and opiate abuse (oxycodone) history of DVT pulmonary embolism paroxysmal atrial fibrillation hypotension hyperlipidemia on chronic Coumadin treatment been using oxycodone for his chronic leg pain finished 1 month supply in 10 days about 5 days ago and started drinking alcohol to decrease anxiety and withdrawal patient wants to stop opiate use and alcohol asking for help patient never had any DTs/seizures post alcohol withdrawal Related Data Home Medications ?Medication ?Instructions ?Recorded ?Confirmed metformin 500 mg tablet 500 mg PO BID 05/25/24 01/26/25 acetaminophen 500 mg tablet 1,000 mg PO Q12H PRN 05/26/24 01/26/25 furosemide 20 mg tablet 20 mg PO DAILY 05/26/24 01/26/25 gabapentin 100 mg capsule 200 mg PO BID 05/26/24 01/26/25 metoprolol tartrate 25 mg tablet 25 mg PO BID 05/26/24 01/26/25 warfarin 5 mg tablet 5 mg PO DAILY 05/26/24 01/26/25 rosuvastatin 5 mg tablet 5 mg PO DAILY 10/27/24 01/26/25 oxycodone 5 mg tablet 5 mg PO QID PRN 11/17/24 01/26/25 Allergies Allergy/AdvReac Type Severity Reaction Status Date / Time No Known Allergies Allergy Verified 02/01/25 20:18 Review of Systems 2 Review of Systems: Yes all other systems are reviewed and are negative [facility] Past Medical History Medical History Pulmonary embolism DVT (deep venous thrombosis) History of DVT of lower extremity History of alcohol abuse Post-thrombotic syndrome PAF (paroxysmal atrial fibrillation) OCD (obsessive compulsive disorder) Prediabetes Hypertension Mixed hyperlipidemia Chronic pain syndrome Surgical History History of thrombectomy History of vascular surgery (~12/2023) Social History Social History Housing: Apartment Alcohol intake: current Alcohol intake frequency: 3 or more drinks per day Alcohol type: hard liquor Patient Tobacco Use Status: Former Tobacco user Tobacco use type: Cigarette Cigarette Packs Per Day: 1 e-Cigarette/Vaping Use: Currently Using Use of substances other than those prescribed or required for medical reasons: Yes Substance Use Type: Opiates and Other Substance Use Type Other:: taking oxycodone more than prescribed Advance Directives: No Advance Directives Information Provided: Yes Do you have a plan to hurt others: No Plan Current occupational exposures/hazards: No Physical Exam ED Vital Signs: Vital Signs - 24 hr 02/01/25 20:16 02/01/25 22:00 Temperature 96.9 F 98.1 F Pulse Rate 102 H 101 H Respiratory Rate 16 15 Blood Pressure 155/102 H 148/95 H Pulse Oximetry 94 97 Oxygen Delivery Method Room Air Room Air BMI result Body Mass Index 46.0 Appearance: Alert. Oriented X3. No acute distress. ETOH++ anxious feels shaky Eyes: No pallor or icterus ENT: Pharynx normal. Oral Mucosa moist Neck: Normal inspection. Neck supple. CVS: Normal heart rate and rhythm. Pulses normal. Respiratory: No respiratory distress. Equal air entry bilateral, no wheezing/rales/rhonchi Abdomen: Soft and nontender. Bowel sounds are present, no mass palpable, no CVA tenderness Skin: Skin warm and dry. Normal skin color. Normal skin turgor. Extremities: No lower extremity edema. No calf tenderness Psych: Anxious denies any significant depression or suicidal feeling no hallucination or delusion Neuro: Oriented X 3. No motor deficit. Course Course Course Narrative: This is a Rapid Medical Exam performed in triage by Lamar Saucedo PA-C. Full HPI, ROS and PE to be performed by primary ED provider. 44 yo M w/PMHx OCD, HTN, HLD, DVT/PE on Coumadin presenting to the ED c/o suspected blood clot in throat/?hx of the same, Oxycodone abuse (takes about 50mg daily) - last took 2-3 days ago & ETOH abuse (drinks about 10 shots a day) - last drink about 1hr [employer] - admits to hx of DT's. PE: +intoxicated/ETOH odor on breath, no tremor or tongue fasciculations appreciated, talking in complete sentences/no resp distress Plan: EKG, labs, CHEEMA, SARs Medications Administered Discontinued Medications Generic Name Dose Route Start Last Admin Trade Name Nereyda PRN Reason Stop Dose Admin Lorazepam 2 mg 02/01/25 22:31 02/01/25 22:38 Lorazepam 1 Mg Tablet PO 02/01/25 22:32 2 mg ONCE ONE Administration Phenobarbital Sodium 283 mg 02/01/25 23:30 02/01/25 23:47 Phenobarbital Sodium 130 Mg/Ml Im Once IM 02/01/25 23:31 283 mg ONCE ONE Administration Protocol Medical Decision Making Medical Decision Making [facility] Narrative: Patient with opiate/oxycodone abuse and alcohol abuse requesting to go for detox end-stage in his life will start on phenobarb protocol and will admit Differential Diagnosis Differential Diagnoses: The differential diagnosis associated with the presentation includes Consult Healthcare Provider Management of the patient was discussed with: Hospitalist Lab Data [facility] Lab Attestation statement: I reviewed the patient's lab results. 02/01/25 20:38 02/01/25 20:38 Labs: Lab Results 02/01/25 02/01/25 02/02/25 Range/Units 20:38 20:39 00:45 WBC 4.7 L (4.8-10.8) X10*3/uL RBC 4.95 (4.60-5.80) X10*6/uL Hgb 15.3 (14.0-18.0) g/dl Hct 43.9 (42.0-52.0) % MCV 88.7 (80.0-98.0) fL MCH 30.9 (27.0-33.0) pg MCHC 34.9 (31.0-36.0) g/dl RDW 14.3 (11.0-16.0) % Plt Count 215 (160-400) X10*3/uL MPV 8.9 L (9.4-12.4) fL Immature Gran % (Auto) 0.6 H (0.0-0.4) % Neut % (Auto) 40.9 L (45-73) % Lymph % (Auto) 49.8 H (20-40) % [place] % (Auto) 6.1 (2-11) % Eos % (Auto) 1.5 (0-4) % Baso % (Auto) 1.1 (0-2) % Lymph # (Auto) 2.4 (1.2-4.9) X10*3/uL [place] # (Auto) 0.3 (0.1-1.2) X10*3/uL Eos # (Auto) 0.1 (0.0-0.4) X10*3/uL Baso # (Auto) 0.1 (0.0-0.2) X10*3/uL Abs Immat Gran (auto) 0.03 (0.00-0.03) X10*3/uL Absolute Neuts (auto) 1.9 L (2.0-8.3) x10*3/uL Absolute Nucleated RBC 0.000 (0.0-0.012) X10*3/uL Nucleated RBC % (auto) 0.0 (0.0-0.2) /100WBC PT 38.6 H (10.9-12.4) SEC INR 3.4 H (0.9-1.1) Sodium 147 H (135-145) mmol/L Potassium 3.4 (3.3-5.1) mmol/L Chloride 111 H (96-108) mmol/L Carbon Dioxide 24 (22-29) mmol/L Anion Gap 15 (12-20) BUN 13 (9-16) mg/dL Creatinine 0.88 (0.5-1.4) mg/dL Estim Creat Clear Calc 149.8 Estimated GFR > 60 Random Glucose 115 (60-115) mg/dL Calcium 9.1 (8.4-10.2) mg/dL Magnesium 2.1 (1.6-2.6) mg/dL Total Bilirubin 0.4 (0.0-1.0) mg/dL Direct Bilirubin 0.2 (0.0-0.5) mg/dL AST 55 H (5-37) U/L ALT 24 (0-40) U/L Alkaline Phosphatase 63 (39-117) U/L Total Protein 8.0 (6.5-8.0) g/dL Albumin 4.9 (3.5-5.0) g/dL Lipase 24 (8-78) U/L Urine Color Yellow Urine Appearance Clear Urine pH 5.5 (5.0-9.0) Ur Specific [place] 1.025 (1.005-1.025) Urine Protein Trace (Neg-Trace) mg/dL Urine Glucose (UA) Negative (Negative) mg/dL Urine Ketones Trace (Negative) mg/dL Urine Blood Trace H (Negative) Urine Nitrite Negative (Negative) Ur Leukocyte Esterase Negative (Negative) Urine RBC 0-2 (0-2) /HPF Urine WBC 0-5 (0-5) /HPF Ur Squamous Epith Cells 0-2 (0-2) /HPF Urine Bacteria None Seen (None Seen) Hyaline Casts 3-5 (0-2) /LPF Salicylates < 5.0 L (15-30) mg/dL Urine Opiates Screen Not Detected (Not Detect) Ur Buprenorphine Scrn Not Detected (Not Detect) ng/mL Ur Oxycodone Screen Not Detected (Not Detect) ng/mL Urine Methadone Screen Not Detected (Not Detect) ng/mL Urine Fentanyl Screen Not Detected (Not Detect) Acetaminophen < 3 (<30) mcg/mL Ur Barbiturates Screen Not Detected (Not Detect) Ur Phencyclidine Scrn Not Detected (Not Detect) Ur Amphetamines Screen Not Detected (Not Detect) U Benzodiazepines Scrn Not Detected (Not Detect) Urine Cocaine Screen Not Detected (Not Detect) U Marijuana (THC) Screen Not Detected (Not Detect) Ethyl Alcohol 311 H* mg/dL Influenza Type A (PCR) NEGATIVE (Negative) Influenza Type B (PCR) NEGATIVE (Negative) RSV RNA Qual (PCR) NEGATIVE (Negative) SARS-CoV-2 RNA (RT-PCR) NEGATIVE (Negative) Independent Interpretation I performed an independent interpretation of an: EKG Interpretation: Sinus tachycardia with heart rate of 101 beats per minute normal interval normal axis no acute ST-T no acute ischemia Discharge Plan Discharge Clinical Impression: Alcohol withdrawal, Oxycodone use disorder, moderate, dependence Patient Disposition: Admitted As Inpatient Print Language: [place]
[2025-02-01 20:16] VITALS: BP 155/102; PULSE 102; RESP 16; TEMP 36.1; O2SAT 94; BMI 46.0
--- NOTE | 2025-02-01 20:20 | ECG_ITS ---
Test Reason : ETOH/SUBSTANCE USE Blood Pressure : */* mmHG Vent. Rate : 101 BPM Atrial Rate : 101 BPM P-R Int : 146 ms QRS Dur : 92 ms QT Int : 362 ms P-R-T Axes : 24 -24 12 degrees QTcB Int : 469 ms Sinus tachycardia Otherwise normal ECG No previous ECGs available Referred By: Lamar Saucedo Electronically Signed By: ERNIE URIBE
[2025-02-01 20:44] LABS: MANUAL DIFF FLAG NO
[2025-02-01 20:45] LABS: Basophils Absolute Auto 0.1 X10*3/uL (0.0-0.2); Basophils Percent Auto 1.1 % (0-2); Eosinophils Absolute Auto 0.1 X10*3/uL (0.0-0.4); Eosinophils Percent Auto 1.5 % (0-4); Hematocrit 43.9 % (42.0-52.0); Hemoglobin 15.3 g/dl (14.0-18.0); Imm Gran Abs Auto 0.03 X10*3/uL (0.00-0.03); Imm Gran Pct Auto 0.6 % (0.0-0.4); Lymphocytes Absolute Auto 2.4 X10*3/uL (1.2-4.9); Lymphocytes Percent Auto 49.8 % (20-40); Mean Corpuscular HGB Conc 34.9 g/dl (31.0-36.0); Mean Corpuscular Hemoglobin 30.9 pg (27.0-33.0); Mean Corpuscular Volume 88.7 fL (80.0-98.0); Mean Platelet Volume 8.9 fL (9.4-12.4); Monocytes Absolute Auto 0.3 X10*3/uL (0.1-1.2); Monocytes Percent Auto 6.1 % (2-11); Neutrophils Absolute Auto 1.9 x10*3/uL (2.0-8.3); Neutrophils Percent Auto 40.9 % (45-73); Platelet Count 215 X10*3/uL (160-400); Red Blood Count 4.95 X10*6/uL (4.60-5.80); Red Cell Distribution Width 14.3 % (11.0-16.0); White Blood Count 4.7 X10*3/uL (4.8-10.8)
[2025-02-01 20:53] LABS: INTERNATIONAL NORM RATIO 3.4 (0.9-1.1); Prothrombin Time 38.6 SEC (10.9-12.4)
[2025-02-01 21:01] LABS: Acetaminophen LAB < 3 mcg/mL (<30); Alanine Aminotransferase 24 U/L (0-40); Albumin Level 4.9 g/dL (3.5-5.0); Alkaline Phosphatase 63 U/L (39-117); Anion Gap 15 (12-20); Aspartate Amino Transferase 55 U/L (5-37); Bilirubin Direct 0.2 mg/dL (0.0-0.5); Bilirubin Total 0.4 mg/dL (0.0-1.0); Blood Urea Nitrogen 13 mg/dL (9-16); Calcium 9.1 mg/dL (8.4-10.2); Carbon Dioxide 24 mmol/L (22-29); Chloride 111 mmol/L (96-108); Creatinine Clr Calc Pharmacy 149.8; Estimated Glomerular Filt Rate > 60; Ethanol 311 mg/dL; Glucose Random 115 mg/dL (60-115); Lipase 24 U/L (8-78); Magnesium 2.1 mg/dL (1.6-2.6); Potassium 3.4 mmol/L (3.3-5.1); Salicylate < 5.0 mg/dL (15-30); Sodium 147 mmol/L (135-145)
[2025-02-01 21:22] LABS: Influenza A PCR NEGATIVE (Negative); Influenza B PCR NEGATIVE (Negative); Resp Syncy Virus RNA Qual PCR NEGATIVE (Negative); SARS COV2 PCR INHOUSE NEGATIVE (Negative)
--- NOTE | 2025-02-01 21:40 | PC.NURSE ---
pt alert oriented x4, requesting to been seen, informed that he will be seen as soon as provider signs up.
[2025-02-01 22:00] VITALS: BP 148/95; PULSE 101; RESP 15; TEMP 36.7; O2SAT 97
[2025-02-01] MEDS: LORazepam 1 MG TABLET 2 MG PO (22:38)
[2025-02-01] MEDS: PHENobarbitaL sodium 130 MG/ML IM ONCE 283 MG IM (23:47)
--- NOTE | 2025-02-02 | ECG_ITS ---
Test Reason : chest pain Blood Pressure : */* mmHG Vent. Rate : 100 BPM Atrial Rate : 100 BPM P-R Int : 146 ms QRS Dur : 90 ms QT Int : 374 ms P-R-T Axes : 29 -21 7 degrees QTcB Int : 482 ms Normal sinus rhythm Nonspecific ST and T wave abnormality Borderline ECG When compared with ECG of 01-Feb-2025 20:28, No significant change was found Referred By: Valery Padilla Electronically Signed By: ERNIE URIBE
--- NOTE | 2025-02-02 00:36 | PC.NURSE ---
pt requesting iv out, so he can leave, provider made aware and is talking to pt.
[2025-02-02 00:55] LABS: Appearance Urine Clear; Color Urine Yellow; Glucose Urine UA Negative (Negative); Leukocyte Esterase Urine Negative (Negative); Nitrite Urine Negative (Negative); PH 5.5 (5.0-9.0); Specific Gravity - Urine 1.025 (1.005-1.025); UMIC TRIGGER UACC YES; Urine Blood Trace (Negative); Urine Ketones Trace mg/dL (Negative); Urine Protein Trace mg/dL (Neg-Trace)
[2025-02-02 01:00] LABS: Bacteria Urine None Seen (None Seen); RBC Urine 0-2 /HPF (0-2); Squamous Epithelial Cell Urine 0-2 /HPF (0-2); WBC Urine 0-5 /HPF (0-5)
[2025-02-02 01:03] LABS: Amphetamine Screen Urine Not Detected (Not Detect); Barbiturates, Urine Not Detected (Not Detect); Benzodiazepines Screen Urine Not Detected (Not Detect); Buprenorphine Scr Not Detected (Not Detect); Cannabinoid Screen Urine Not Detected (Not Detect); Cocaine Screen Urine Not Detected (Not Detect); Fentanyl, urine Not Detected (Not Detect); Methadone Screen, Urine Not Detected (Not Detect); Opiate Screen Urine Not Detected (Not Detect); Oxycodone Screen Urine Not Detected (Not Detect); Phencyclidine Screen Urine Not Detected (Not Detect)
[2025-02-02] MEDS: Dextrose 5 % and 0.45 % NaCl 1,000 ML 100 ML IVCONT ×2 (02:17→12:43)
[2025-02-02] MEDS: PHENobarbitaL sodium 130 MG/ML VIAL IM Q3Hx2 212 MG IM ×2 (02:18→05:31)
--- NOTE | 2025-02-02 03:42 | P.HPHOSP_ITS ---
History of Present Illness Date of Service: 02/02/25 Chief Complaint: Alcohol detox 44-year-old male with a past medical history of paroxysmal AFib, pulmonary embolism, factor 5 Leiden deficiency-on Coumadin, presented to the hospital with a chief complaint of not feeling well. Patient is a poor historian. Most of history obtained from the records and the staff. Reportedly patient has chronic leg pain and has been using oxycodone which he over to kit and finish the total bottle in a short span of time. Last dose of oxycodone was about 5 days ago. Since then he has been drinking alcohol regularly to cut down his anxiety; today he mentioned he has abdominal discomfort nausea and vomiting. Denies any diarrhea. Denies any fever chills cough or sputum production. Denies any chest pain or palpitations. Review of all other systems is negative except mentioned above ER course: Per ER team, patient appears to be tremulous concern for possible withdrawal. Placed him on the CIWA protocol with phenobarbital. [facility] Medical History Pulmonary embolism DVT (deep venous thrombosis) History of DVT of lower extremity History of alcohol abuse Post-thrombotic syndrome PAF (paroxysmal atrial fibrillation) OCD (obsessive compulsive disorder) Prediabetes Hypertension Mixed hyperlipidemia Chronic pain syndrome Surgical History History of thrombectomy History of vascular surgery (~12/2023) Social History Housing: Apartment Alcohol intake: current Alcohol intake frequency: 3 or more drinks per day Alcohol type: hard liquor Patient Tobacco Use Status: Former Tobacco user Tobacco use type: Cigarette Cigarette Packs Per Day: 1 e-Cigarette/Vaping Use: Currently Using Use of substances other than those prescribed or required for medical reasons: Yes Substance Use Type: Opiates and Other Substance Use Type Other:: taking oxycodone more than prescribed Advance Directives: No Advance Directives Information Provided: Yes Do you have a plan to hurt others: No Plan Nutrition Risks: No Nutritional Risk Current occupational exposures/hazards: No Meds Allergies Allergy/AdvReac Type Severity Reaction Status Date / Time No Known Allergies Allergy Verified 02/01/25 20:18 Active Medications: Current Medications Acetaminophen (Acetaminophen 325 Mg Tablet) 650 mg PO Q6H PRN PRN Reason: Pain, Mild 1-3,fever,headache Calcium Carbonate (Calcium Carbonate 750 Mg Tab.Chew) 750 mg PO Q4H PRN PRN Reason: Heartburn Dextrose (Dextrose 50 % 25 Gm/50 Ml Syringe) 25 gm IVPUSH Q15M PRN; Protocol PRN Reason: per Hypoglycemia Standing Ord. Famotidine (Famotidine 20 Mg Tablet) 20 mg PO DAILY [facility] Folic Acid (Folic Acid 1 Mg Tablet) 1 mg PO DAILY [facility] Stop: 02/05/25 08:59 Glucose (Glucose Gel 15 Gm Gel..Gram.) 15 gm PO Q15M PRN; Protocol PRN Reason: per Hypoglycemia Standing Ord. Heparin Sodium (Porcine) (Heparin Sodium,Porcine 5,000 Unit/Ml Vial) 5,000 unit SUBCUT Q8H [facility] Last Admin: 02/02/25 02:23 Dose: Not Given Dextrose/Sodium Chloride (D51/2ns) 1,000 mls @ 100 mls/hr IVCONT .Q10H [facility] Last Admin: 02/02/25 02:17 Dose: 100 mls/hr Insulin Human Lispro (Insulin Lispro 100 Unit/Ml 3 Ml Vial) 0 unit SUBCUT QIDACHS [facility]; Protocol Magnesium Hydroxide (Milk Of Magnesia 30 Ml Oral.Susp) 30 ml PO DAILY PRN PRN Reason: Constipation Melatonin (Melatonin 3 Mg Tablet) 6 mg PO BEDTIME PRN PRN Reason: Insomnia Multivitamins/Vitamin C (Multivitamin Tablet) 1 tab PO DAILY [facility] Stop: 02/05/25 08:59 Pharmacy Consult (Consult Rx Etoh Phenob Im/Po) 1 each MISCELLANE ONCE PRN; Protocol PRN Reason: Consult order Phenobarbital (Phenobarbital 15 Mg Tablet) 45 mg PO BID@0000,1200 [facility]; Protocol Stop: 02/04/25 00:01 Phenobarbital (Phenobarbital 15 Mg Tablet) 15 mg PO BID [facility]; Protocol Stop: 02/06/25 21:01 Phenobarbital (Phenobarbital 15 Mg Tablet) 15 mg PO DAILY [facility]; Protocol Stop: 02/08/25 09:01 Phenobarbital Sodium (Phenobarbital Sodium 130 Mg/Ml Vial Im Q3hx2) 212 mg IM Q3H [facility]; Protocol Stop: 02/02/25 05:31 Last Admin: 02/02/25 02:18 Dose: 212 mg Sodium Chloride (0.9 % Sodium Chloride Flush 3 Ml Syringe) 3 ml IVFLUSH QSHIFT TG Thiamine HCl (Thiamine Hcl 100 Mg Tablet) 100 mg PO DAILY [facility] Stop: 02/05/25 08:59 Home Medications ?Medication ?Instructions ?Recorded ?Confirmed ?Last Taken ?Type metformin 500 mg tablet 500 mg PO BID 05/25/24 01/26/25 Unknown History acetaminophen 500 mg tablet 1,000 mg PO Q12H PRN 05/26/24 01/26/25 Unknown History furosemide 20 mg tablet 20 mg PO DAILY 05/26/24 01/26/25 Unknown History gabapentin 100 mg capsule 200 mg PO BID 05/26/24 01/26/25 Unknown History metoprolol tartrate 25 mg tablet 25 mg PO BID 05/26/24 01/26/25 Unknown History warfarin 5 mg tablet 5 mg PO DAILY 05/26/24 01/26/25 Unknown History rosuvastatin 5 mg tablet 5 mg PO DAILY 10/27/24 01/26/25 Unknown History oxycodone 5 mg tablet 5 mg PO QID PRN 11/17/24 01/26/25 Unknown History Physical Exam 2 Vital Signs and Narrative: Vital Signs: Last Vital Signs Temp 98.1 F 02/01/25 22:00 Pulse 101 H 02/01/25 22:00 Resp 15 02/01/25 22:00 BP 148/95 H 02/01/25 22:00 Pulse Ox 97 02/01/25 22:00 O2 Del Method Room Air 02/01/25 22:00 BMI result Body Mass Index 46.0 Gen: Appears be in no acute distress HEENT: NCAT, Moist mucosa. Pulmonary: Vesicular breath sounds, fair air entry CVS: Normal S1-S2 Abdomen: BS+, Soft, Nontender Extremities: Warm well perfused Neuro: Alert and awake. Results Labs 02/01/25 20:38 02/01/25 20:38 Labs: Laboratory Results - last 24 hr 02/01/25 02/01/25 02/02/25 20:38 20:39 00:45 MCV 88.7 MCH 30.9 MCHC 34.9 RDW 14.3 Plt Count 215 MPV 8.9 L Immature Gran % (Auto) 0.6 H Neut % (Auto) 40.9 L Lymph % (Auto) 49.8 H [place] % (Auto) 6.1 Eos % (Auto) 1.5 Baso % (Auto) 1.1 Lymph # (Auto) 2.4 [place] # (Auto) 0.3 Eos # (Auto) 0.1 Baso # (Auto) 0.1 Abs Immat Gran (auto) 0.03 Absolute Neuts (auto) 1.9 L Absolute Nucleated RBC 0.000 Nucleated RBC % (auto) 0.0 PT 38.6 H INR 3.4 H Anion Gap 15 Estim Creat Clear Calc 149.8 Estimated GFR > 60 Random Glucose 115 Calcium 9.1 Magnesium 2.1 Total Bilirubin 0.4 Direct Bilirubin 0.2 AST 55 H ALT 24 Alkaline Phosphatase 63 Total Protein 8.0 Albumin 4.9 Lipase 24 Urine Color Yellow Urine Appearance Clear Urine pH 5.5 Ur Specific [place] 1.025 Urine Protein Trace Urine Glucose (UA) Negative Urine Ketones Trace Urine Blood Trace H Urine Nitrite Negative Ur Leukocyte Esterase Negative Urine RBC 0-2 Urine WBC 0-5 Ur Squamous Epith Cells 0-2 Urine Bacteria None Seen Hyaline Casts 3-5 Salicylates < 5.0 L Urine Opiates Screen Not Detected Ur Buprenorphine Scrn Not Detected Ur Oxycodone Screen Not Detected Urine Methadone Screen Not Detected Urine Fentanyl Screen Not Detected Acetaminophen < 3 Ur Barbiturates Screen Not Detected Ur Phencyclidine Scrn Not Detected Ur Amphetamines Screen Not Detected U Benzodiazepines Scrn Not Detected Urine Cocaine Screen Not Detected U Marijuana (THC) Screen Not Detected Ethyl Alcohol 311 H* Influenza Type A (PCR) NEGATIVE Influenza Type B (PCR) NEGATIVE RSV RNA Qual (PCR) NEGATIVE SARS-CoV-2 RNA (RT-PCR) NEGATIVE Assessment and Plan (1) Alcohol withdrawal: Qualifiers: Complication of substance-induced condition: with unspecified complication Qualified Code(s): F10.939 - Alcohol use, unspecified with withdrawal, unspecified Status: Acute Plan 44-year-old male with a past medical history of paroxysmal AFib, pulmonary embolism, factor 5 Leiden deficiency-on Coumadin, presented to the hospital with a chief complaint of not feeling well. 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 Oxycodone overuse: Patient took about 50 mg of oxycodone every day and finished his supply of oxycodone prescription in a very short period. Last dose was about 5 days ago. Will monitor for opiate withdrawal Addiction medicine consult Mild hypernatremia: Will monitor HX venous thromboembolism: Patient on Coumadin. INR 3.4. Follow-up INR in a.m.. DVT prophylaxis: Patient on Coumadin Code status: Full code Quality Stroke Does the patient have a stroke diagnosis?: No VTE Prior VTE?: No VTE Risk Level:: Medical - moderate - high VTE Device Contraindication: Treatment Not Indicated VTE Drug Contraindication: N/A - Med Ordered
[2025-02-02 07:07] VITALS: BP 170/80; PULSE 82; RESP 18; TEMP 37.2; O2SAT 96
[2025-02-02 07:41] LABS: Glucose, Whole Blood 113 mg/dL (60-115)
[2025-02-02 09:15] LABS: MANUAL DIFF FLAG NO
[2025-02-02 09:17] LABS: Basophils Absolute Auto 0.1 X10*3/uL (0.0-0.2); Eosinophils Absolute Auto 0.1 X10*3/uL (0.0-0.4); Eosinophils Percent Auto 1.6 % (0-4); Hematocrit 40.8 % (42.0-52.0); Hemoglobin 14.1 g/dl (14.0-18.0); Imm Gran Abs Auto 0.04 X10*3/uL (0.00-0.03); Imm Gran Pct Auto 0.8 % (0.0-0.4); Lymphocytes Absolute Auto 2.2 X10*3/uL (1.2-4.9); Lymphocytes Percent Auto 44.7 % (20-40); Mean Corpuscular HGB Conc 34.6 g/dl (31.0-36.0); Mean Corpuscular Hemoglobin 31.2 pg (27.0-33.0); Mean Corpuscular Volume 90.3 fL (80.0-98.0); Mean Platelet Volume 9.1 fL (9.4-12.4); Monocytes Absolute Auto 0.3 X10*3/uL (0.1-1.2); Monocytes Percent Auto 5.9 % (2-11); Neutrophils Absolute Auto 2.3 x10*3/uL (2.0-8.3); Platelet Count 184 X10*3/uL (160-400); Red Blood Count 4.52 X10*6/uL (4.60-5.80); Red Cell Distribution Width 14.3 % (11.0-16.0); White Blood Count 4.9 X10*3/uL (4.8-10.8)
[2025-02-02 09:28] LABS: INTERNATIONAL NORM RATIO 2.8 (0.9-1.1); Prothrombin Time 31.6 SEC (10.9-12.4)
[2025-02-02] MEDS: Multivitamin TABLET 1 TAB PO (09:32)
[2025-02-02] MEDS: Thiamine HCL 100 MG TABLET PO (09:32)
[2025-02-02] MEDS: Folic Acid 1 MG TABLET PO (09:32)
[2025-02-02] MEDS: 0.9 % Sodium Chloride Flush 3 ML SYRINGE IVFLUSH ×2 (09:33→17:27)
[2025-02-02] MEDS: Heparin Sodium,Porcine 5,000 UNIT/ML VIAL 5000 UNIT SUBCUT ×3 (09:33→23:53)
[2025-02-02] MEDS: Famotidine 20 MG TABLET PO (09:34)
[2025-02-02 09:42] LABS: Alanine Aminotransferase 16 U/L (0-40); Albumin Level 4.3 g/dL (3.5-5.0); Alkaline Phosphatase 54 U/L (39-117); Anion Gap 16 (12-20); Aspartate Amino Transferase 44 U/L (5-37); Bilirubin Total 0.5 mg/dL (0.0-1.0); Blood Urea Nitrogen 13 mg/dL (9-16); Calcium 8.6 mg/dL (8.4-10.2); Carbon Dioxide 23 mmol/L (22-29); Chloride 110 mmol/L (96-108); Creatinine Clr Calc Pharmacy 171.2; Estimated Glomerular Filt Rate > 60; Glucose Random 123 mg/dL (60-115); Potassium 3.4 mmol/L (3.3-5.1); Sodium 146 mmol/L (135-145); Total Protein 7.2 g/dL (6.5-8.0)
--- NOTE | 2025-02-02 09:56 | MHC.CM.PN ---
EMR REVIEWED, PT W/ETOH WITHDRAWAL/OVERUSE OF OXYCODONE, PT IS HOMELESS AND DECLINES TO DISCUSS DISPO REPORTING HE WANTS TO DC AMA D/T WITHDRAWALS, CM OFFERED CARE TEAM/RECOVERY HOWEVER PT CURRENTLY DECLINES. PT VERIFIES PCP IS AT [facility] AND EDUCATED ON AND DECLINES TO COMPLETE A HCP.
[2025-02-02] MEDS: PHENobarbitaL sodium 130 MG/ML VIAL IM (10:20)
[2025-02-02] MEDS: hydrOXYzine HCL 25 MG TABLET PO ×3 (10:20→21:01)
[2025-02-02] MEDS: oxyCODONE HCl Immed Release 5 MG TABLET PO ×2 (10:27→16:11)
[2025-02-02 10:48] VITALS: BP 173/92; PULSE 89; RESP 18; TEMP 37.2; O2SAT 96
--- NOTE | 2025-02-02 11:09 | PHA.MEDREC ---
Addendum entered by Paty Reese RPh 02/02/25 11:25: reviewed by [facility]. Original Note: Pharmacy Consult ? Medication Reconciliation Pharmacy has completed the medication reconciliation. Spoke to patient to confirm med list. Patient states [facility] monitor and adjusts his Warfarin dose. Patent state his last dose was yesterday 5.5 mg . Patient says he taking Gabapentin bid, however last fill 05/2024 for 30 day supply. Patient last had his medication 01/31/25
[2025-02-02 11:29] LABS: Glucose, Whole Blood 126 mg/dL (60-115)
[2025-02-02] MEDS: PHENobarbitaL 15 MG TABLET 45 MG PO ×2 (12:42→23:53)
--- NOTE | 2025-02-02 12:53 | HO.ADDICTCON ---
History of Present Illness Date of Service: 02/02/2025 Chief Complaint: ETOH Reason for Consult: alcohol and opiate withdrawal Sources of Information: patient interviewed and chart reviewed HPI Narrative: Patient is a 44 year old male with history of AFIB, DVT, and AUD. Presented to [facility] in acute alcohol withdrawal and subsequently medically admitted. Patient seen in room 486, he is awake, alert, engaged in interview. Noted to be quite tremulous. He reports that he had been in recovery, abstaining from alcohol use, for 4 years until recently. 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 He has been prescribed oxycodone 5mg QID for several years for pain and neuropathy in his feet. He denies any history of every taking more than prescribed, or running out early. Once he ran out of his medication, 4 days ago per his report, he began drinking to help with the pain and withdrawal from opiates. He was drinking greater than 10 nips per day. He denies any history of opiate use. States alcohol is all he has had a problematic relationship with. He has been started on phenobaratal taper He does report a history of DTs when withdrawing, but denies seizures. Discussed concern that even if oxycodone is resumed here, he will be unable to fill it at the pharmacy as he is not due for a refill for another 2 weeks. Reviewed other options, including transitioning to buprenorphine--patient declined stating he was trialled on Butrans, but did not like the way it made him feel. He was seen by [facility] pain management April 2024--notes reviewed. Medical Evaluation Reviewed: Yes Review of Systems Constitutional: Reports as per HPI, Reports difficulty sleeping and Reports malaise Gastrointestinal: Denies loose stools and Reports nausea Reports tremor(s) Psychiatric: Reports anxiety Diagnostics Vital Signs (24Hr): Vital Signs - 24 hr 02/01/25 20:16 02/01/25 22:00 02/02/25 07:07 Temperature 96.9 F 98.1 F 98.9 F Pulse Rate 102 H 101 H 82 Respiratory Rate 16 15 18 Blood Pressure 155/102 H 148/95 H 170/80 H Pulse Oximetry 94 97 96 Oxygen Delivery Method Room Air Room Air Room Air 02/02/25 10:48 Temperature 98.9 F Pulse Rate 89 Respiratory Rate 18 Blood Pressure 173/92 H Pulse Oximetry 96 Oxygen Delivery Method Room Air BMI result Body Mass Index 46.0 Labs 02/02/25 08:44 02/02/25 08:44 Labs: Laboratory Results - last 48 hr 02/01/25 02/01/25 02/02/25 20:38 20:39 00:45 WBC 4.7 L RBC 4.95 Hgb 15.3 Hct 43.9 MCV 88.7 MCH 30.9 MCHC 34.9 RDW 14.3 Plt Count 215 MPV 8.9 L Immature Gran % (Auto) 0.6 H Neut % (Auto) 40.9 L Lymph % (Auto) 49.8 H [place] % (Auto) 6.1 Eos % (Auto) 1.5 Baso % (Auto) 1.1 Lymph # (Auto) 2.4 [place] # (Auto) 0.3 Eos # (Auto) 0.1 Baso # (Auto) 0.1 Abs Immat Gran (auto) 0.03 Absolute Neuts (auto) 1.9 L Absolute Nucleated RBC 0.000 Nucleated RBC % (auto) 0.0 PT 38.6 H INR 3.4 H Sodium 147 H Potassium 3.4 Chloride 111 H Carbon Dioxide 24 Anion Gap 15 BUN 13 Creatinine 0.88 Estim Creat Clear Calc 149.8 Estimated GFR > 60 POC Glucose Random Glucose 115 Calcium 9.1 Magnesium 2.1 Total Bilirubin 0.4 Direct Bilirubin 0.2 AST 55 H ALT 24 Alkaline Phosphatase 63 Total Protein 8.0 Albumin 4.9 Lipase 24 Urine Color Yellow Urine Appearance Clear Urine pH 5.5 Ur Specific [place] 1.025 Urine Protein Trace Urine Glucose (UA) Negative Urine Ketones Trace Urine Blood Trace H Urine Nitrite Negative Ur Leukocyte Esterase Negative Urine RBC 0-2 Urine WBC 0-5 Ur Squamous Epith Cells 0-2 Urine Bacteria None Seen Hyaline Casts 3-5 Salicylates < 5.0 L Urine Opiates Screen Not Detected Ur Buprenorphine Scrn Not Detected Ur Oxycodone Screen Not Detected Urine Methadone Screen Not Detected Urine Fentanyl Screen Not Detected Acetaminophen < 3 Ur Barbiturates Screen Not Detected Ur Phencyclidine Scrn Not Detected Ur Amphetamines Screen Not Detected U Benzodiazepines Scrn Not Detected Urine Cocaine Screen Not Detected U Marijuana (THC) Screen Not Detected Ethyl Alcohol 311 H* Influenza Type A (PCR) NEGATIVE Influenza Type B (PCR) NEGATIVE RSV RNA Qual (PCR) NEGATIVE SARS-CoV-2 RNA (RT-PCR) NEGATIVE 02/02/25 02/02/25 02/02/25 07:38 08:44 11:26 WBC 4.9 RBC 4.52 L Hgb 14.1 Hct 40.8 L MCV 90.3 MCH 31.2 MCHC 34.6 RDW 14.3 Plt Count 184 MPV 9.1 L Immature Gran % (Auto) 0.8 H Neut % (Auto) 46.0 Lymph % (Auto) 44.7 H [place] % (Auto) 5.9 Eos % (Auto) 1.6 Baso % (Auto) 1.0 Lymph # (Auto) 2.2 [place] # (Auto) 0.3 Eos # (Auto) 0.1 Baso # (Auto) 0.1 Abs Immat Gran (auto) 0.04 H Absolute Neuts (auto) 2.3 Absolute Nucleated RBC 0.000 Nucleated RBC % (auto) 0.0 PT 31.6 H INR 2.8 H Sodium 146 H Potassium 3.4 Chloride 110 H Carbon Dioxide 23 Anion Gap 16 BUN 13 Creatinine 0.77 Estim Creat Clear Calc 171.2 Estimated GFR > 60 POC Glucose 113 126 H Random Glucose 123 H Calcium 8.6 Magnesium Total Bilirubin 0.5 Direct Bilirubin AST 44 H ALT 16 Alkaline Phosphatase 54 Total Protein 7.2 Albumin 4.3 Lipase Urine Color Urine Appearance Urine pH Ur Specific [place] Urine Protein Urine Glucose (UA) Urine Ketones Urine Blood Urine Nitrite Ur Leukocyte Esterase Urine RBC Urine WBC Ur Squamous Epith Cells Urine Bacteria Hyaline Casts Salicylates Urine Opiates Screen Ur Buprenorphine Scrn Ur Oxycodone Screen Urine Methadone Screen Urine Fentanyl Screen Acetaminophen Ur Barbiturates Screen Ur Phencyclidine Scrn Ur Amphetamines Screen U Benzodiazepines Scrn Urine Cocaine Screen U Marijuana (THC) Screen Ethyl Alcohol Influenza Type A (PCR) Influenza Type B (PCR) RSV RNA Qual (PCR) SARS-CoV-2 RNA (RT-PCR) Mental Status Exam Mental Status Exam Patient Appearance: Appropriate Level of Consciousness: Awake, Appropriate and Alert Patient Behavior: Appropriate and Anxious Mood Description: Anxious Affect Description: Anxious Speech Pattern: Clear Hallucinations: None Thought Content: positive for Intact Judgement: Good Medications Medications Current Medications Acetaminophen (Acetaminophen 325 Mg Tablet) 650 mg PO Q6H PRN PRN Reason: Pain, Mild 1-3,fever,headache Atorvastatin Calcium (Atorvastatin Calcium 20 Mg Tablet) 20 mg PO DAILY [facility] Calcium Carbonate (Calcium Carbonate 750 Mg Tab.Chew) 750 mg PO Q4H PRN PRN Reason: Heartburn Dextrose (Dextrose 50 % 25 Gm/50 Ml Syringe) 25 gm IVPUSH Q15M PRN; Protocol PRN Reason: per Hypoglycemia Standing Ord. Famotidine (Famotidine 20 Mg Tablet) 20 mg PO DAILY [facility] Last Admin: 02/02/25 09:34 Dose: 20 mg Folic Acid (Folic Acid 1 Mg Tablet) 1 mg PO DAILY [facility] Stop: 02/05/25 08:59 Last Admin: 02/02/25 09:32 Dose: 1 mg Glucose (Glucose Gel 15 Gm Gel..Gram.) 15 gm PO Q15M PRN; Protocol PRN Reason: per Hypoglycemia Standing Ord. Heparin Sodium (Porcine) (Heparin Sodium,Porcine 5,000 Unit/Ml Vial) 5,000 unit SUBCUT Q8H [facility] Last Admin: 02/02/25 09:33 Dose: 5,000 unit Hydroxyzine HCl (Hydroxyzine Hcl 25 Mg Tablet) 25 mg PO Q6H PRN PRN Reason: withdrawal Last Admin: 02/02/25 10:20 Dose: 25 mg Dextrose/Sodium Chloride (D51/2ns) 1,000 mls @ 100 mls/hr IVCONT .Q10H [facility] Last Admin: 02/02/25 12:43 Dose: 100 mls/hr Insulin Human Lispro (Insulin Lispro 100 Unit/Ml 3 Ml Vial) 0 unit SUBCUT QIDACHS [facility]; Protocol Last Admin: 02/02/25 12:34 Dose: Not Given Magnesium Hydroxide (Milk Of Magnesia 30 Ml Oral.Susp) 30 ml PO DAILY PRN PRN Reason: Constipation Melatonin (Melatonin 3 Mg Tablet) 6 mg PO BEDTIME PRN PRN Reason: Insomnia Metoprolol Tartrate (Metoprolol Tartrate 25 Mg Tablet) 25 mg PO BID [facility]; Protocol Multivitamins/Vitamin C (Multivitamin Tablet) 1 tab PO DAILY [facility] Stop: 02/05/25 08:59 Last Admin: 02/02/25 09:32 Dose: 1 tab Pharmacy Consult (Consult Rx Etoh Phenob Im/Po) 1 each MISCELLANE ONCE PRN; Protocol PRN Reason: Consult order Phenobarbital (Phenobarbital 15 Mg Tablet) 45 mg PO BID@0000,1200 [facility]; Protocol Stop: 02/04/25 00:01 Last Admin: 02/02/25 12:42 Dose: 45 mg Phenobarbital (Phenobarbital 15 Mg Tablet) 15 mg PO BID [facility]; Protocol Stop: 02/06/25 21:01 Phenobarbital (Phenobarbital 15 Mg Tablet) 15 mg PO DAILY [facility]; Protocol Stop: 02/08/25 09:01 Sodium Chloride (0.9 % Sodium Chloride Flush 3 Ml Syringe) 3 ml IVFLUSH QSHIFT [facility] Last Admin: 02/02/25 09:33 Dose: 3 ml Thiamine HCl (Thiamine Hcl 100 Mg Tablet) 100 mg PO DAILY [facility] Stop: 02/05/25 08:59 Last Admin: 02/02/25 09:32 Dose: 100 mg Warfarin Sodium (Warfarin Sodium 5 Mg Tablet) 5 mg PO DAILY@1800 [facility] Allergies Allergies Allergy/AdvReac Type Severity Reaction Status Date / Time No Known Allergies Allergy Verified 02/01/25 20:18 Assessment & Plan Assessment & Plan (1) Alcohol withdrawal: Qualifiers: Complication of substance-induced condition: with unspecified complication Qualified Code(s): F10.939 - Alcohol use, unspecified with withdrawal, unspecified Status: Acute Code(s): F10.939 - Alcohol use, unspecified with withdrawal, unspecified Assessment and Plan: pheno taper in place. Please use adjunct medications as needed for worsening anxiety and PRN doses of pheno for worsening CIWA scores thiamine and folic acid (2) Oxycodone use disorder, moderate, dependence: Status: Acute Code(s): F11.20 - Opioid dependence, uncomplicated Assessment and Plan: patient declining transition to buprenorphine or methadone from oxycodone. He would like to discontinue opiates all together. Reinforced with patient challenges with opioid taper and possible worsening sx upon discharge. Patient adamant that he wishes to taper original plan was to start low dose methadone (5mg) with goal of discontinuing prior to discharge per his request--however his current residence ([facility]) does not allow methadone, so he would be unable to return there if methadone was administered plan now is oxycodone 5mg TID --which a reduction from home dose of 5mg QID. Depending on when he discharges/and how he tolerates dose decrease, dose may be reduced further. Total time managing care of this patient today ___60_ minutes. REPLACED BY [facility] Past Medical History Medical History Pulmonary embolism DVT (deep venous thrombosis) History of DVT of lower extremity History of alcohol abuse Post-thrombotic syndrome PAF (paroxysmal atrial fibrillation) OCD (obsessive compulsive disorder) Prediabetes Hypertension Mixed hyperlipidemia Chronic pain syndrome Surgical History Surgical History History of thrombectomy History of vascular surgery (~12/2023) Social History Social History Household Members: Other Housing: Homeless Do you presently have visiting nurse or other home services: No Alcohol intake: current Alcohol intake frequency: 3 or more drinks per day Alcohol type: hard liquor Patient Tobacco Use Status: Former Tobacco user Tobacco use type: Cigarette Cigarette Packs Per Day: 1 e-Cigarette/Vaping Use: Currently Using Frequency of e-Cigarette/Vaping Use: daily Patient Interested in Nicotine Replacement: Yes Patient Given Instructions on How to Stop Smoking: Yes Date Education Initiated: 02/02/25 Second Hand Smoke Exposure: Yes Use of substances other than those prescribed or required for medical reasons: Yes Substance Use Type: Opiates and Other Substance Use Type Other:: taking oxycodone more than prescribed Have you been hit, kicked, punched, or otherwise hurt by someone within the past year? If so, by whom?: No Do you feel safe in your current relationship?: Yes Is there a partner from a previous relationship who is making you feel unsafe now?: No Are you made to feel afraid or neglected: No Advance Directives: No Advance Directives Information Provided: Yes Do you have a plan to hurt others: No Plan Recently lost weight without trying: No Eating poorly because of decreased appetite: No Nutrition Risks: No Nutritional Risk Poor oral hygiene: No service: No Current occupational exposures/hazards: No
--- NOTE | 2025-02-02 14:14 | HO.PM.IMPN ---
Subjective Subjective Date of Service: 02/02/25 Interval History: seen and examined this morning follow up for withdrawal Reporting feeling shaky, experiencing withdrawals Review of Systems Review of Systems: Yes all other systems are reviewed and are negative Constitutional Constitutional: Denies chills and Denies fever(s) Cardiovascular Cardiovascular: Denies chest pain and Denies palpitations Endocrine Endocrine: Denies palpitations Physical Exam Vital Signs: Vital Signs: Last Vital Signs Temp 98.9 F 02/02/25 10:48 Pulse 89 02/02/25 10:48 Resp 18 02/02/25 10:48 BP 173/92 H 02/02/25 10:48 Pulse Ox 96 02/02/25 10:48 O2 Del Method Room Air 02/02/25 10:48 BMI result Body Mass Index 46.0 Const: Other: tremulous General: alert and awake Nutritional Appearance: obese Orientation/consciousness: patient oriented x3 Resp: Effort & Inspection: normal respiratory effort, able to speak in complete sentences, no respiratory distress and no use of accessory muscles Cardio: Rate: regular rate Neuro: General: patient oriented x3, moves all extremities and CN's II-XI intact bilaterally Extrem: General: Yes no pedal edema Objective Data Active Medications Acetaminophen (Acetaminophen 325 Mg Tablet) 650 mg PO Q6H PRN PRN Reason: Pain, Mild 1-3,fever,headache Atorvastatin Calcium (Atorvastatin Calcium 20 Mg Tablet) 20 mg PO DAILY [facility] Calcium Carbonate (Calcium Carbonate 750 Mg Tab.Chew) 750 mg PO Q4H PRN PRN Reason: Heartburn Dextrose (Dextrose 50 % 25 Gm/50 Ml Syringe) 25 gm IVPUSH Q15M PRN; Protocol PRN Reason: per Hypoglycemia Standing Ord. Famotidine (Famotidine 20 Mg Tablet) 20 mg PO DAILY [facility] Last Admin: 02/02/25 09:34 Dose: 20 mg Documented By: SOCORRO Folic Acid (Folic Acid 1 Mg Tablet) 1 mg PO DAILY [facility] Stop: 02/05/25 08:59 Last Admin: 02/02/25 09:32 Dose: 1 mg Documented By: SOCORRO Glucose (Glucose Gel 15 Gm Gel..Gram.) 15 gm PO Q15M PRN; Protocol PRN Reason: per Hypoglycemia Standing Ord. Heparin Sodium (Porcine) (Heparin Sodium,Porcine 5,000 Unit/Ml Vial) 5,000 unit SUBCUT Q8H [facility] Last Admin: 02/02/25 09:33 Dose: 5,000 unit Documented By: SOCORRO Hydroxyzine HCl (Hydroxyzine Hcl 25 Mg Tablet) 25 mg PO Q6H PRN PRN Reason: withdrawal Last Admin: 02/02/25 10:20 Dose: 25 mg Documented By: SOCORRO Dextrose/Sodium Chloride (D51/2ns) 1,000 mls @ 100 mls/hr IVCONT .Q10H [facility] Last Admin: 02/02/25 12:43 Dose: 100 mls/hr Documented By: SOCORRO Insulin Human Lispro (Insulin Lispro 100 Unit/Ml 3 Ml Vial) 0 unit SUBCUT QIDACHS [facility]; Protocol Last Admin: 02/02/25 12:34 Dose: Not Given Documented By: SOCORRO Non-Admin Reason: No Insulin Coverage Magnesium Hydroxide (Milk Of Magnesia 30 Ml Oral.Susp) 30 ml PO DAILY PRN PRN Reason: Constipation Melatonin (Melatonin 3 Mg Tablet) 6 mg PO BEDTIME PRN PRN Reason: Insomnia Metoprolol Tartrate (Metoprolol Tartrate 25 Mg Tablet) 25 mg PO BID [facility]; Protocol Multivitamins/Vitamin C (Multivitamin Tablet) 1 tab PO DAILY [facility] Stop: 02/05/25 08:59 Last Admin: 02/02/25 09:32 Dose: 1 tab Documented By: SOCORRO Pharmacy Consult (Consult Rx Etoh Phenob Im/Po) 1 each MISCELLANE ONCE PRN; Protocol PRN Reason: Consult order Phenobarbital (Phenobarbital 15 Mg Tablet) 45 mg PO BID@0000,1200 [facility]; Protocol Stop: 02/04/25 00:01 Last Admin: 02/02/25 12:42 Dose: 45 mg Documented By: SOCORRO Phenobarbital (Phenobarbital 15 Mg Tablet) 15 mg PO BID [facility]; Protocol Stop: 02/06/25 21:01 Phenobarbital (Phenobarbital 15 Mg Tablet) 15 mg PO DAILY [facility]; Protocol Stop: 02/08/25 09:01 Sodium Chloride (0.9 % Sodium Chloride Flush 3 Ml Syringe) 3 ml IVFLUSH QSHIFT [facility] Last Admin: 02/02/25 09:33 Dose: 3 ml Documented By: SOCORRO Thiamine HCl (Thiamine Hcl 100 Mg Tablet) 100 mg PO DAILY [facility] Stop: 02/05/25 08:59 Last Admin: 02/02/25 09:32 Dose: 100 mg Documented By: SOCORRO Warfarin Sodium (Warfarin Sodium 5 Mg Tablet) 5 mg PO DAILY@1800 [facility] Labs 02/02/25 08:44 02/02/25 08:44 Labs: Laboratory Results - last 24 hr 02/01/25 02/01/25 02/02/25 20:38 20:39 00:45 MCV 88.7 MCH 30.9 MCHC 34.9 RDW 14.3 Plt Count 215 MPV 8.9 L Immature Gran % (Auto) 0.6 H Neut % (Auto) 40.9 L Lymph % (Auto) 49.8 H [place] % (Auto) 6.1 Eos % (Auto) 1.5 Baso % (Auto) 1.1 Lymph # (Auto) 2.4 [place] # (Auto) 0.3 Eos # (Auto) 0.1 Baso # (Auto) 0.1 Abs Immat Gran (auto) 0.03 Absolute Neuts (auto) 1.9 L Absolute Nucleated RBC 0.000 Nucleated RBC % (auto) 0.0 PT 38.6 H INR 3.4 H Anion Gap 15 Estim Creat Clear Calc 149.8 Estimated GFR > 60 POC Glucose Random Glucose 115 Calcium 9.1 Magnesium 2.1 Total Bilirubin 0.4 Direct Bilirubin 0.2 AST 55 H ALT 24 Alkaline Phosphatase 63 Total Protein 8.0 Albumin 4.9 Lipase 24 Urine Color Yellow Urine Appearance Clear Urine pH 5.5 Ur Specific [place] 1.025 Urine Protein Trace Urine Glucose (UA) Negative Urine Ketones Trace Urine Blood Trace H Urine Nitrite Negative Ur Leukocyte Esterase Negative Urine RBC 0-2 Urine WBC 0-5 Ur Squamous Epith Cells 0-2 Urine Bacteria None Seen Hyaline Casts 3-5 Salicylates < 5.0 L Urine Opiates Screen Not Detected Ur Buprenorphine Scrn Not Detected Ur Oxycodone Screen Not Detected Urine Methadone Screen Not Detected Urine Fentanyl Screen Not Detected Acetaminophen < 3 Ur Barbiturates Screen Not Detected Ur Phencyclidine Scrn Not Detected Ur Amphetamines Screen Not Detected U Benzodiazepines Scrn Not Detected Urine Cocaine Screen Not Detected U Marijuana (THC) Screen Not Detected Ethyl Alcohol 311 H* Influenza Type A (PCR) NEGATIVE Influenza Type B (PCR) NEGATIVE RSV RNA Qual (PCR) NEGATIVE SARS-CoV-2 RNA (RT-PCR) NEGATIVE 02/02/25 02/02/25 02/02/25 07:38 08:44 11:26 MCV 90.3 MCH 31.2 MCHC 34.6 RDW 14.3 Plt Count 184 MPV 9.1 L Immature Gran % (Auto) 0.8 H Neut % (Auto) 46.0 Lymph % (Auto) 44.7 H [place] % (Auto) 5.9 Eos % (Auto) 1.6 Baso % (Auto) 1.0 Lymph # (Auto) 2.2 [place] # (Auto) 0.3 Eos # (Auto) 0.1 Baso # (Auto) 0.1 Abs Immat Gran (auto) 0.04 H Absolute Neuts (auto) 2.3 Absolute Nucleated RBC 0.000 Nucleated RBC % (auto) 0.0 PT 31.6 H INR 2.8 H Anion Gap 16 Estim Creat Clear Calc 171.2 Estimated GFR > 60 POC Glucose 113 126 H Random Glucose 123 H Calcium 8.6 Magnesium Total Bilirubin 0.5 Direct Bilirubin AST 44 H ALT 16 Alkaline Phosphatase 54 Total Protein 7.2 Albumin 4.3 Lipase Urine Color Urine Appearance Urine pH Ur Specific [place] Urine Protein Urine Glucose (UA) Urine Ketones Urine Blood Urine Nitrite Ur Leukocyte Esterase Urine RBC Urine WBC Ur Squamous Epith Cells Urine Bacteria Hyaline Casts Salicylates Urine Opiates Screen Ur Buprenorphine Scrn Ur Oxycodone Screen Urine Methadone Screen Urine Fentanyl Screen Acetaminophen Ur Barbiturates Screen Ur Phencyclidine Scrn Ur Amphetamines Screen U Benzodiazepines Scrn Urine Cocaine Screen U Marijuana (THC) Screen Ethyl Alcohol Influenza Type A (PCR) Influenza Type B (PCR) RSV RNA Qual (PCR) SARS-CoV-2 RNA (RT-PCR) Assessment and Plan (1) Oxycodone use disorder, moderate, dependence: Status: Acute (2) Alcohol withdrawal: Status: Acute Plan This is a 44-year-old male with a past medical history of paroxysmal AFib, pulmonary embolism, factor 5 Leiden deficiency-on Coumadin, presented to the hospital with requests for assistance with etoh use. Alcohol use disorder with acute withdrawal continue phenobarbital protocol, required additional dose of phenobarb this am continue Thiamine, folate, multivitamins addiction medicine consult Oxycodone misuse overusing rx for oxy due to worsening pain Addiction medicine consult-discussed buprenorphine, patient declined had been seen by pain management clinic, butrans trialed but pt didn't like it Mild hypernatremia: improving follow BMP HX venous thromboembolism: continue coumadin follow INR dialy pre-DM hold metformin follow POCs HLD statin HTN metoprolol, furosemide on hold DVT prophylaxis: Coumadin Code status: Full code Quality Stroke Does the patient have a stroke diagnosis?: No VTE Prior VTE?: No VTE Risk Level:: Medical - moderate - high VTE Device Contraindication: Treatment Not Indicated VTE Drug Contraindication: N/A - Med Ordered
[2025-02-02 15:32] LABS: Glucose, Whole Blood 131 mg/dL (60-115)
[2025-02-02 15:42] VITALS: BP 175/95; PULSE 95; RESP 18; TEMP 37.1; O2SAT 96
[2025-02-02 15:47] LABS: Troponin-I High Sensitivity 4.2 ng/L (<3.5-35.0)
[2025-02-02] MEDS: Warfarin Sodium 5 MG TABLET PO (17:26)
[2025-02-02] MEDS: Acetaminophen 325 MG TABLET 650 MG PO (17:26)
[2025-02-02 19:24] LABS: Glucose, Whole Blood 145 mg/dL (60-115)
[2025-02-02 19:28] VITALS: BP 162/78; PULSE 95; RESP 18; TEMP 36.4; O2SAT 96
[2025-02-02 20:56] VITALS: BP 159/79; PULSE 84
[2025-02-02] MEDS: Metoprolol Tartrate 25 MG TABLET PO (20:56)
[2025-02-03] VITALS: BP 140/68; PULSE 97; RESP 16; TEMP 36.4; O2SAT 97
[2025-02-03] MEDS: Dextrose 5 % and 0.45 % NaCl 1,000 ML 100 ML IVCONT ×2 (00:09→09:05)
[2025-02-03 04:00] VITALS: BP 174/88; PULSE 62; RESP 17; TEMP 36.1; O2SAT 99
[2025-02-03 07:51] VITALS: BP 162/87; PULSE 70; RESP 20; TEMP 36.1; O2SAT 98
[2025-02-03 08:12] LABS: Glucose, Whole Blood 135 mg/dL (60-115)
[2025-02-03 08:20] LABS: INTERNATIONAL NORM RATIO 3.1 (0.9-1.1); Prothrombin Time 35.5 SEC (10.9-12.4)
[2025-02-03 08:31] LABS: Anion Gap 13 (12-20); Blood Urea Nitrogen 9 mg/dL (9-16); Calcium 8.1 mg/dL (8.4-10.2); Carbon Dioxide 23 mmol/L (22-29); Chloride 109 mmol/L (96-108); Creatinine Clr Calc Pharmacy 188.3; Estimated Glomerular Filt Rate > 60; Glucose Random 121 mg/dL (60-115); Magnesium 1.8 mg/dL (1.6-2.6); Potassium 3.2 mmol/L (3.3-5.1); Sodium 142 mmol/L (135-145)
[2025-02-03] MEDS: Famotidine 20 MG TABLET PO (08:57)
[2025-02-03] MEDS: Folic Acid 1 MG TABLET PO (08:57)
[2025-02-03] MEDS: Thiamine HCL 100 MG TABLET PO (08:57)
[2025-02-03] MEDS: Atorvastatin Calcium 20 MG TABLET PO (08:57)
[2025-02-03] MEDS: Metoprolol Tartrate 25 MG TABLET PO (08:57)
[2025-02-03] MEDS: 0.9 % Sodium Chloride Flush 3 ML SYRINGE IVFLUSH (08:57)
[2025-02-03] MEDS: Multivitamin TABLET 1 TAB PO (08:57)
[2025-02-03] MEDS: Heparin Sodium,Porcine 5,000 UNIT/ML VIAL 5000 UNIT SUBCUT (08:59)
--- NOTE | 2025-02-03 10:08 | P.DS_ITS ---
DS: Providers Provider Date of Service: 02/03/25 Date of admission: 02/02/25 00:57 Date of discharge: 02/03/25 Primary care physician: Pat Alfredo Douglas Consults: 02/02/25 01:37 Addiction Medicine Provider Routine Consulting Provider: Addiction Covering Reason for consultation: oxycodone abuse Has provider been notified: Yes DS: Diagnosis Discharge Diagnosis (1) Alcohol withdrawal: Status: Acute (2) Oxycodone use disorder, moderate, dependence: Status: Acute DS: Summary Hospital Course Hospital Course: 44-year-old male with a past medical history of paroxysmal AFib, pulmonary embolism, factor 5 Leiden deficiency-on Coumadin, presented to the hospital with a chief complaint of not feeling well. Patient is a poor historian. Most of history obtained from the records and the staff. Reportedly patient has chronic leg pain and has been using oxycodone which he over to kit and finish the total bottle in a short span of time. Last dose of oxycodone was about 5 days ago. Since then he has been drinking alcohol regularly to cut down his anxiety; today he mentioned he has abdominal discomfort nausea and vomiting. Denies any diarrhea. Denies any fever chills cough or sputum production. Denies any chest pain or palpitations. Review of all other systems is negative except mentioned above ER course: Per ER team, patient appears to be tremulous concern for possible withdrawal. Placed him on the CIWA protocol with phenobarbital. The patient has decided to leave against medical advice. He has normal mental status and adequate capacity to make medical decisions. The patient refuses hospital admission and wants to be discharged. The risks have been explained to the patient including worsening illness, chronic pain, permanent disability and even . The benefits of admission have also been explained including the availability of nurses, medical providers, close monitoring, IV medications, diagnostic imaging, treatments, etc.. The patient was able to understand and state the risks and benefits of hospital admission. The patient was given opportunities to ask questions prior to leaving. Current Treatment not completed: Alcohol use disorder with acute withdrawal continue phenobarbital protocol, required additional dose of phenobarb this am continue Thiamine, folate, multivitamins addiction medicine consult Oxycodone misuse overusing rx for oxy due to worsening pain Addiction medicine consult-discussed buprenorphine, patient declined had been seen by pain management clinic, jamil trialed but pt didn't like it Mild hypernatremia improving follow BMP HX venous thromboembolism continue coumadin follow INR dialy pre-DM hold metformin follow POCs HLD statin HTN metoprolol, furosemide on hold Time Attestation Discharge Coordination Time (in mins): 40 Quality: Safe Use of Opioids Does Pt have an Active Cancer Diagnosis on the Problem List?: No Quality: Stroke Does the patient have a stroke diagnosis?: No Physical Exam Vital Signs: Vital Signs: Last Vital Signs Temp 97.0 F 02/03/25 07:51 Pulse 70 02/03/25 07:51 Resp 20 02/03/25 07:51 BP 162/87 H 02/03/25 07:51 Pulse Ox 98 02/03/25 07:51 O2 Del Method Room Air 02/03/25 07:51 BMI result Body Mass Index 46.0 Declined DS: Data Data Completed and Pending Labs on day of discharge: Laboratory Results - last 24 hr 02/02/25 02/02/25 02/02/25 11:26 15:22 15:28 Hold Purple Top PT INR Sodium Potassium Chloride Carbon Dioxide Anion Gap BUN Creatinine Estim Creat Clear Calc Estimated GFR POC Glucose 126 H 131 H Random Glucose Calcium Magnesium Troponin I High Sens 4.2 D 02/02/25 02/03/25 02/03/25 19:19 07:37 07:49 Hold Purple Top SEE NOTE PT 35.5 H INR 3.1 H Sodium 142 Potassium 3.2 L Chloride 109 H Carbon Dioxide 23 Anion Gap 13 BUN 9 Creatinine 0.70 Estim Creat Clear Calc 188.3 Estimated GFR > 60 POC Glucose 145 H 135 H Random Glucose 121 H Calcium 8.1 L Magnesium 1.8 Troponin I High Sens Discharge Plan Discharge Anticipated Discharge Date/Time: 02/03/25 09:55 Patient Disposition: Left Against Medical Advice Discharge Diagnosis: Alcohol use and withdrawal Oxycodone misuse Hypernatremia Referrals: [facility] [Primary Care Provider] - 1 Week Discharge Medications: No Action rosuvastatin 5 mg tablet 5 mg PO DAILY oxycodone 5 mg tablet 5 mg PO QID PRN (Reason: Pain) metformin 500 mg tablet 500 mg PO BID metoprolol tartrate 25 mg tablet 25 mg PO BID furosemide 20 mg tablet 20 mg PO DAILY acetaminophen 500 mg tablet 1,000 mg PO Q12H PRN (Reason: Pain) warfarin 5 mg tablet 5 mg PO DAILY@1800 Protocol: Dose Management Condition: Wednesday (Week One) Dose/Route: 5 mg Instruction: 1 x 5 mg tablet Condition: Wednesday Dose/Route: 7.5 mg Instruction: 1.5 x 5 mg tablets Condition: Wednesday Dose/Route: 7.5 mg Instruction: 1.5 x 5 mg tablets Condition: Wednesday Dose/Route: 5 mg Instruction: 1 x 5 mg tablet Condition: Dose/Route: 7.5 mg Instruction: 1.5 x 5 mg tablets Condition: Wednesday Dose/Route: 5 mg Instruction: 1 x 5 mg tablet Condition: Wednesday Dose/Route: 7.5 mg Instruction: 1.5 x 5 mg tablets Condition: Wednesday (Week Two) Dose/Route: 7.5 mg Instruction: 1.5 x 5 mg tablets Condition: Wednesday Dose/Route: 5 mg Instruction: 1 x 5 mg tablet Condition: Wednesday Dose/Route: 7.5 mg Instruction: 1.5 x 5 mg tablets Condition: Wednesday Dose/Route: 5 mg Instruction: 1 x 5 mg tablet Condition: Dose/Route: 7.5 mg Instruction: 1.5 x 5 mg tablets Condition: Wednesday Dose/Route: 5 mg Instruction: 1 x 5 mg tablet Condition: Wednesday Dose/Route: 7.5 mg Instruction: 1.5 x 5 mg tablets Protocol Text: Adjustment Start Date: Wednesday01/26/25 INR Value: 1.4 INR Date: 01/26/25 Recheck Date: 02/02/25 Additional Instructions: AVOID GREENS X 3 DAYS, THEN HAVE GREENS X 2 SERVINGS / WEEK, EAT A SERVING OF ORANGE AND REDS TODAY AND TOMORROW THEN RESUME USUAL DIET Discharge Orders: Discharge Order (Routine); Ordered 02/03/25 Ordered By: Roxie Chiu Diet: Advance to usual diet Activity on Discharge: As tolerated Print Language: Botswanan Care Plan Goals: Patient eloped prior to signing AMA paperwork The patient has decided to leave against medical advice. He has normal mental status and adequate capacity to make medical decisions. The patient refuses hospital admission and wants to be discharged. The risks have been explained to the patient including worsening illness, chronic pain, permanent disability and even . The benefits of admission have also been explained including the availability of nurses, medical providers, close monitoring, IV medications, diagnostic imaging, treatments, etc.. The patient was able to understand and state the risks and benefits of hospital admission. The patient was given opportunities to ask questions prior to leaving. Health Concerns: Alcohol use and withdrawal Oxycodone misuse Hypernatremia Plan of Treatment: Follow up with the primary care provider as needed Take all medications as prescribed Assessment: See discharge summary
--- NOTE | 2025-02-03 10:08 | PM.EVENT ---
Event Note Date of Service: 02/03/25 Event Note: Addiction follow up note t/w went to follow up with patient this morning, and advised that patient had self initiated discharge. vm left for patient to present to ED should he change his mind about seeking treatment or follow up for opiate withdrawal Time Spent With Patient Time: Total time managing care of this patient today ____ minutes.
--- NOTE | 2025-02-03 10:09 | MHC.CM.PN ---
Patient is leaving AMA.
== END 2025-02-03 09:55 | disposition left against medical advice (07) | DRG 770 ==
LOC: HO.ED 02-02 01:51 → HO.EDOVER 02-02 02:20 → HO.IMC 02-02 03:44
PROVIDERS: Physician Assistant; Physician Assistant Medical; Admitting Provider Hospitalist; Emergency Provider Internal Medicine; Visit Provider Nurse Practitioner Acute Care
DX: F10.939 Alcohol use, unspecified with withdrawal, unspecified (principal); E87.0 Hyperosmolality and hypernatremia; D68.51 Activated protein C resistance; F11.20 Opioid dependence, uncomplicated; I48.0 Paroxysmal atrial fibrillation; Y90.8 Blood alcohol level of 240 mg/100 ml or more; R73.03 Prediabetes; I10 Essential (primary) hypertension; F10.929 Alcohol use, unspecified with intoxication, unspecified; Z20.822 Contact with and (suspected) exposure to COVID-19; Z86.711 Personal history of pulmonary embolism; Z79.01 Long term (current) use of anticoagulants; Z79.84 Long term (current) use of oral hypoglycemic drugs; Z79.899 Other long term (current) drug therapy
CPT/HCPCS: 0241U; 36415; 80048; 80053; 80076; 80143; 80179; 80307; 81001; 82947; 83690; 83735; 84484; 85025; 85610; 93005; 99285; J1644; J2560; S9485

== ENCOUNTER → 2025-02-01 20:20 | Outpatient (BNV) | payer OTHER, SELFPAY | PROVIDERS: Admitting Provider Hospitalist; Emergency Provider Internal Medicine; Visit Provider Internal Medicine | DX: R00.0 Tachycardia, unspecified (principal) | CPT/HCPCS: 93010 ==

== ENCOUNTER 2025-02-02 00:57 | Outpatient (BNV) | payer OTHER, SELFPAY | END 2025-02-02 15:19 | PROVIDERS: Admitting Provider Hospitalist; Emergency Provider Internal Medicine; Visit Provider Internal Medicine | DX: R07.9 Chest pain, unspecified (principal) | CPT/HCPCS: 93010 ==

== ENCOUNTER → 2025-02-02 00:57 | Outpatient (BNV) | payer OTHER, SELFPAY | PROVIDERS: Admitting Provider Hospitalist; Emergency Provider Internal Medicine; Visit Provider Physician Assistant Medical | DX: F10.939 Alcohol use, unspecified with withdrawal, unspecified (principal); F11.20 Opioid dependence, uncomplicated | CPT/HCPCS: 99223; 99239; 99499 ==

== ENCOUNTER → 2025-02-02 00:57 | Outpatient (BNV) | payer OTHER, SELFPAY | PROVIDERS: Admitting Provider Hospitalist; Emergency Provider Internal Medicine; Visit Provider Nurse Practitioner Psychiatric/Mental Health | DX: F10.939 Alcohol use, unspecified with withdrawal, unspecified (principal); F11.20 Opioid dependence, uncomplicated | CPT/HCPCS: 99223; 99499 ==

== ENCOUNTER 2025-04-05 11:04 | Outpatient (AMB) | payer OTHER, SELFPAY ==
--- OUTSIDE RECORDS SUMMARY | 2025-04-02 12:14 | XMS_ITS ---
Author Organization [facility] Address [address] [place] [phone] Care Team Providers Care Hotel Attendant Name Role Phone Karin Randall Primary Care Provider Reason For Referral Reason [facility] er Anticoagulation service - [address] [facility] [address] P: [phone] F: [phone] HX DVT/ PE, paroxysmal afib, Goal INR 2.5 - 3.5 Diagnosis 1 Personal history of other venous thrombosis and embolism (Z86.718) Referral Organization [facility] Referring Provider First Name Karin Referring Provider Last Name Tonia Referring Provider Speciality Nurse Prac titioner General Notes Neha Castillo 04/03 09:13:52 AM >[place] [facility] [place] Priority Routine [place] [facility] [place] Encounters Encounter Location Date Provider Diagnosis [address] [phone] 04/02/2025 Karin Randall Personal history of other venous thrombosis and embolism Z86.718 Assessments Encounter Date Diagnosis (ICD Code) Assessment Notes Treatment Notes Treatment Clinical Notes Section Notes 04/02/2025 Personal history of other venous thrombosis and embolism (ICD-10 - Z86.718) BLE DVT [address] Plan Of Treatment Referrals Referral Date Details 04/02/2025 04/02/2025, [facility] Anticoagulation service - [address] [facility] [address] P: [phone] F: [phone] HX DVT/ PE, paroxysmal afib, Goal INR 2.5 - 3.5 Next Appt Details Provider Name:Karin colon, 04/09/2025 09:30:00 AM, [address] [place], [place], [phone], Progress Notes * JILLIAN Epifanio EDOB: [birth year] (44 yo M)Acc No.[id number]:04/02/2025 Patient: Epifanio BELLO :1980 A ge:44 Y S ex:Male Address:[address] [place] [id number] Subjective: * Chief Complaints: * H coumadin clinic * Medical History: * Surgical History: * Hospitalization/Major Diagno stic Procedure: * Medications: Objective: * Vitals: * Physical Examination: Assessment: * Assessment: 1. P ersonal history of other venous thrombosis and embolism - Z86.718 (Primary) ?Notes :BLE DVT 2012IVF in place Plan: * Treatment: * Procedure Codes: * true * Date: Generated for Kodak wayne/Rosalia/eTransmitting on: 0 04/05/2025 11:40 AM EDT Consultation Request Notes Referral Date Referring Provider Referred Provider Not es 04/02/2025 Karin Randall [facility] Anticoagulation service - [address] [place] [id number] P: [phone] F: [phone] HX DVT/ PE, paroxysmal afib, Goal INR 2.5 - 3.5
--- NOTE | 2025-04-05 11:23 | MHC.OFFVISCO ---
Intake Intake Visit Reasons: Anticoagulation Allergies No Known Allergies Allergy (Verified 04/05/25 11:21) Medication List - Last Reconciled 04/05/25 by Negin Paredes RN furosemide 20 mg PO DAILY metformin 500 mg PO BID metoprolol tartrate 25 mg PO BID oxycodone 5 mg PO QID PRN warfarin 2.5 mg See Protocol PO DAILY warfarin 3 mg See Protocol PO DAILY Nursing Note INR: 2.8- in therapeutic range 2.5-3.5 Medications and supplements reviewed and updated new medications are gabapentin, clonidine, nicotine patch and gum- no interaction with warfarin per micromedes, escitalopram which can raise inr per micromedex No changes in health, diet, or supplements, Denies any signs and symptoms of bleeding or bruising or clotting. Bleeding, bruising, clotting discussed Nutritional guidance given Dose: pt states has been taking 5.5mg daily x 1 week F/U INR: 1 week Patient verbalizes understanding of instructions given pt states recent hosp for detox- was in the hosp for approx 35 days. now in a program in [facility]. pt states out of warfarin t/c placed to pt pcp to request refill- made aware pt out of warfarin. pt states las inr was 3.0 and done on 03/29/25 Anti-Coag Initial Assessment Social Hx Patient Tobacco Use Status: Former Tobacco user Tobacco use type: Cigarette Smoking packs per day: 1 alcohol intake: current Alcohol intake frequency: 3 or more drinks per day Cardiovascular Hx: HTN, Arrhythmias (afib) and Varicose Veins Lung Disease HX: DVT/PE Endocrine Hx: Diabetes (borderline on oral agent) Cancer HX: No Psych. Illness/Depression: No Coding Level of Care Code Est Patient Level 2 Diagnoses Current use of anticoagulant therapy Z79.01 Assessment & Plan Assessment & Plan (1) Current use of anticoagulant therapy: Code(s): Z79.01 - alf (current) use of anticoagulants Category: Medical Medications: New gabapentin 300 mg PO BID acetaminophen (Tylenol) 650 mg PO Q6H PRN escitalopram oxalate 20 mg PO DAILY nicotine 1 patch transdermal DAILY nicotine (polacrilex) q 1-2 hours prn 4 mg buccal Q1H clonidine HCl 0.2 mg PO QID PRN
[2025-04-05 11:31] LABS: Prothrombin Time Whole Bld POC 33.2 sec (11.1-13.5); ~PT, ~INR - Anti Coag Clinic 2.8 (0.9-1.1)
--- OUTSIDE RECORDS SUMMARY | 2025-04-05 11:41 | XMS_ITS | Clinical Summary ---
Author Organization [facility] Address [address] [facility] [address] [place] [address] Care Team Providers Care Multimedia Artist Name Role Phone Unknown, Unknown Primary Care Provider Unavailab le Allergies No known active allergies Medications metFORMIN (Glucophage) 500 mg tablet Take 500 mg by mouth with breakfast and with evening meal. Active furosemide (Lasix) 20 mg tablet Take by mouth. Activ e metoprolol tartrate (Lopressor) 25 mg tablet Take by mouth. Activ e gabapentin (Neurontin) 300 mg capsule Take 300 mg by mouth three times daily. Active oxyCODONE (Oxy-IR) 5 mg immediate release capsule Take by mouth. Active warfarin (Coumadin) 4 mg tablet Take 4 mg by mouth. Take as directed per After Visit Summary. Active Active Problems Problem Noted Date Diagnosed Date DVT (deep venous thrombosis) (Multi-HCC) 024 Social History Tobacco Use Types Packs/Day Years Used Date Smoking Tobacco: Former Cigarettes Q uit: 10/29/2023 Smokeless Tobacco: Never Tobacco Cessation:Counseling Given: Not Answered AUDIT-C Answer Date Recorded Q1: How often do you have a drink containing alcohol? Never 01/18/2024 Q2: How many drinks containi ng alcohol do you have on a typical day when you are drinking? Patient does not drink Q3: How often do you have si x or more drinks on one occasion? Never 01/18/2024 Overall Financial Resource Strain (CARDIA) Answe r Date Recorded How hard is it for you to pa y for the very basics like food, housing, medical care, and heating? Not hard at all 01/18/2024 Hunger Vital Sign Answer Date Recorded Within the past 12 months, y ou worried that your food would run out before you got the money to buy more. Never true 01/18/20 24 Ran Out of Food in the Last Year Not on file 01/18/2024 PRAPARE - Transportation Answer Date Re corded In the past 12 months, has l ack of transportation kept you from medical appointments or from getting medications? No 12/29 In the past 12 months, has l ack of transportation kept you from meetings, work, or from getting things needed for daily living? No 01/18/2024 Housing Stability Vital Sign Answer Parish e Recorded Unable to Pay for Housing in the Last Year Not o n file 01/18/2024 Number of Places Lived in the Last Year Not on f ile 01/18/2024 In the last 12 months, was t here a time when you did not have a steady place to sleep or slept in a snf (including now)? No 01/18/2024 Sex and Gender Information Value Date Recorded Sex Assigned at Not on file Legal Sex Male 9:50 AM EDT Gender Identity Male 01/18/2024 5:59 AM EDT Sexual Orientation Choose not to disclose 2023 5:59 AM EDT Last Filed Vital Signs Vital Sign Reading Time Taken Comments Blood Pressure 115/51 01/19/2024 8:09 AM EDT Pulse 80 01/19/2024 8:09 AM EDT Temperature 37.3 C (99.1 F) 01/19/2024 8:09 AM EDT Respiratory Rate 18 01/19/2024 8:09 AM EDT Oxygen Saturation 99% 01/19/2024 8:09 AM EDT Inhaled Oxygen Concentration - - Weight 136.1 kg (300 lb) 01/18/2024 7:05 AM EDT Height 177.8 cm (5' 10 ) 01/18/2024 7:05 AM EDT Body Mass Index 43.05 01/18/2024 7:05 AM EDT Plan of Treatment Health Maintenance Due Date Last Done Comments HIV Screening 1980 Lipid Panel 1980 MMR Vaccines (1 of 1 - Standard series) 1981 Hepatitis C Screening 1998 DTaP/Tdap/Td Vaccines (1 - Tdap) 1999 Pneumococcal Vaccine: Pediatrics (0 to 5 Years) and At-Risk Patients (6 to 49 Years) (1 of 2 - PCV) 1999 HPV Vaccines (1 - 3-dose SCD M series) 2007 COVID-19 Vaccine (3 - Modern a risk series) 01/16/2021 12/19/2020, 11/01/2020 Diabetes Screening 05/10/2023 05/10/2022 Depression Screening 08/30/2024 Influenza Vaccine (#1) 2025 Hepatitis B Vaccines Completed 09/16/2023, 08/18/2021, 07/21/2021 HIB Vaccines Aged Out No longer eligi ble based on patient's age to complete this topic Hepatitis A Vaccines Aged Out No long er eligible based on patient's age to complete this topic IPV Vaccines Aged Out No longer eligi ble based on patient's age to complete this topic Meningococcal B Vaccine Aged Out No l onger eligible based on patient's age to complete this topic Meningococcal Vaccine Aged Out No mauricio barrett eligible based on patient's age to complete this topic Rotavirus Vaccines Aged Out No longer eligible based on patient's age to complete this topic Medical Devices Implanted Type Area [employer] Device Identifier Shelf Expiration Date Model / Serial / Lot Stent, Abre 14mm X 150mm - [id number] Implanted:Qty: 1 on 01/18/2024 by Ubaldo Jimenez MD at [facility] Stent Left: Vein PS-[employer]ONI 03/02/2026 [id number] / / [id number] Stent, Abre 14mm X 150mm - [id number] Implanted:Qty: 2 on 01/18/2024 by Ubaldo Jimenez MD at [facility] Stent Right: Vein PS-[employer] 10/18/2026 [id number] / / [id number] Stent, Abre 16mm X 150mm - [id number] Implanted:Qty: 1 on 01/18/2024 by Ubaldo Jimenez MD at [facility] Stent Left: Vein PS-[employer] 11/11/2025 [id number] / / [id number] Stent, Abre [id number] - [id number] Implanted:Qty: 1 on 01/18/2024 by Ubaldo Jimenez MD at [facility] Stent Right: Vein PS-[employer]TVASC 07/06/2024 [id number] / / [id number] Stent, Abre 12mm X 120mm X 90 Cm - [id number] - [id number] Implanted:Qty: 1 on 01/18/2024 by Ubaldo Jimenez MD at [facility] Stent Right: Vein [employer] 12/28/2026 [id number] / [id number] / Insurance ACO ACO Advance Directives * Full Code (Latest Code Status on File) Date Activated Date Inactivated Comments 01/18/2024 7:28 AM 01/19/2024 3:07 PM Care Teams Multimedia Artist Relationship Specialty Start Date End Date Unknown, Unknown PCP - General 12/09/23
== END 2025-04-05 12:08 | disposition home or self-care (01) ==
LOC: HO.ACS 11:04
PROVIDERS: Visit Provider Internal Medicine Medical Oncology
DX: Z79.01 Long term (current) use of anticoagulants (principal)

== ENCOUNTER → 2025-04-05 11:04 | Outpatient (BNVA) | payer MEDICAID, SELFPAY | PROVIDERS: Visit Provider Internal Medicine Medical Oncology | DX: Z79.01 Long term (current) use of anticoagulants (principal) | CPT/HCPCS: 85610; 99212 ==